=== PATIENT | male | born 1940 | race Caucasian/White ===

== ENCOUNTER 2016-11-17 09:59 | Inpatient (IN) | payer MEDICARE ==
[2016-11-17] MEDS ORDERED: Ondansetron HCl/PF 4 MG/2 ML Vial IVP PRN ×2 (10:00→16:46)
[2016-11-17] MEDS ORDERED: Ondansetron ODT 4 MG TAB SL PRN (10:00)
[2016-11-17 10:51] LABS: #Lymphocytes 0.9 thou/uL (1.20-3.40); #Monocytes 0.8 thou/uL (0.11-0.59); #Neutrophils 5.1 thou/uL (1.40-6.50); %Basophils 0.2 % (0.0-1.0); %Eosinophils 0.7 % (0.0-10.0); %Lymphocytes 12.9 % (21.0-51.0); %Monocytes 11.1 % (0.0-10.0); Hematocrit 36.3 % (42.0-52.0); Mean Platelet Volume 7.1 fL (7.4-10.4); Red Blood Cell (RBC) Count 3.49 mill/uL (4.70-6.10); White Blood Cell (WBC) Count 6.8 thou/uL (4.8-10.8)
[2016-11-17 11:05] LABS: ALT (SGPT) 20 U/L (8-55); AST (SGOT) 28 U/L (5-34); Alkaline Phosphatase 120 U/L (40-150); Anion Gap 15 mmol/L (10-20); BUN (Urea Nitrogen) 19 mg/dL (8.4-25.7); CK (CPK) 153 U/L (30-200); Calc. Creatinine Clearance 0 mL/min (70-130); Calcium 8.9 mg/dL (7.8-10.44); Carbon Dioxide 20 mmol/L (23-31); Chloride 94 mmol/L (98-107); Estimated GFR-MDRD 68; Globulin 3.3 g/dL (2.4-3.5); Magnesium 1.8 mg/dL (1.6-2.6); Phosphorus 3.5 mg/dL (2.3-4.7); Protein, Total 6.9 g/dL (5.8-8.1)
[2016-11-17 11:09] LABS: Troponin I 0.025 ng/mL (< 0.028)
[2016-11-17 11:45] VITALS: BMI 28.7
[2016-11-17] MEDS ORDERED: FLU VACC TS2017-18 (>65YR) 0.5 ML SYRINGE IM ONE (12:15)
[2016-11-17 14:15] LABS: Troponin I 0.039 ng/mL (< 0.028)
[2016-11-17] MEDS ORDERED: Nitroglycerin 0.4 MG TAB (25 Tab Bottle) PO PRN (16:45)
[2016-11-17] MEDS ORDERED: Milk Of Magnesia 30 ML UDCUP PO PRN (16:46)
[2016-11-17] MEDS ORDERED: Mag-Al 1200 mg/1200 mg/30 ML UDCUP PO PRN (16:46)
[2016-11-17] MEDS ORDERED: Calcium Carbonate 500 MG ChewTAB PO PRN (16:46)
[2016-11-17] MEDS ORDERED: Ondansetron ODT 4 MG TAB PO PRN (16:46)
[2016-11-17] MEDS ORDERED: Acetaminophen 325 MG TAB PO PRN (16:46)
[2016-11-17] MEDS ORDERED: Senokot 8.6 MG TAB PO PRN (16:46)
[2016-11-17] MEDS ORDERED: Bisacodyl 10 MG SUPP PR PRN (16:46)
[2016-11-17] MEDS ORDERED: Diabetic Tussin 200 MG/10 ML UDCUP PO PRN (16:57)
[2016-11-17] MEDS ORDERED: cloNIDine HCl 0.1 MG TAB PO PRN (16:59)
[2016-11-17] MEDS ORDERED: Labetalol HCl 100 MG/20 ML VIAL SLOW IVP PRN (16:59)
[2016-11-17 17:08] LABS: Troponin I 0.027 ng/mL (< 0.028)
--- NOTE | 2016-11-17 17:09 | HP ---
DATE OF ADMISSION: 11/17/2016 CHIEF COMPLAINT: Shortness of breath and chest discomfort. CODE STATUS: FULL CODE. SURROGATE DECISION-MAKER: Patient makes his own decisions with the help of his family. HISTORY OF PRESENT ILLNESS: Patient is a 76-year-old male with coronary artery disease, chronic javier stolic heart failure, severe aortic stenosis, hypertension, and hyperlipidemia, who presented to [facility] with the above complaints. The patient woke up at 4 a.m. today with sudden onset of chest discomfort which felt like tightness, more or less constant, without any aggravating or relieving factor. He also had shortness of breat h without any palpitations, nausea, vomiting, or diaphoresis. The pain was moderate in intensity wi thout any radiation. It was precordial in location. Due to worsening chest discomfort, EMS was jordan led. He denies any syncope or lightheadedness. No recent immobilization, travel reported. In the emergency room, his initial vital signs showed temperature 97.4, pulse rate of 78, respiratio n of 20, blood pressure of 122/80 with O2 saturation 98% on room air. His chest x-ray showed pulmon taylor vascular congestion. His BNP at [facility] was around 1800 with sodium of 127 and bilirubi n of 2.2 with alkaline phosphatase 134. He received 80 mg IV Lasix and was transferred to this [facility]. His initial EKG showed paced rhythm. PAST MEDICAL HISTORY: 1. Chronic diastolic heart failure. 2. Severe aortic stenosis with ongoing plans for TAVR. 3. Hypertension. 4. Hypothyroidism. 5. Coronary artery disease. 6. Blindness. 7. Anxiety. 8. Benign prostatic hypertrophy. 9. Status post pacemaker. 10. GERD. 11. Hyperlipidemia. 12. Irritable bowel syndrome. 13. History of prostate cancer. 14. History of renal artery occlusion. 15. Seasonal allergies. 16. History of MO. 17. Sick sinus syndrome. PAST SURGICAL HISTORY: 1. Coronary artery bypass grafting in 12/1999. 2. Prostatectomy in 2004. 3. Pacemaker placement in 2009. 4. Recent cardiac catheterization per family report. 5. Orthopedic Surgery. ALLERGIES: Patient is allergic to ASPIRIN, CAFFEINE, and CODEINE. CURRENT HOME MEDICATIONS: Patient does not remember any of his home medications. Family to get acc urate list of medications. SOCIAL HISTORY: Patient currently lives alone at home. He denies any history of smoking, alcohol o r drug use. FAMILY HISTORY: Negative for premature coronary artery disease. REVIEW OF SYSTEMS: The following complete review of systems was negative, unless otherwise mentione d in the HPI or below: Constitutional: Weight loss or gain, ability to conduct usual activities. Skin: Rash, itching. Eyes: Double vision, pain. ENT/Mouth: Nose bleeding, neck stiffness, pain, tenderness. Cardiovascular: Palpitations, dyspnea on exertion, orthopnea. Respiratory: Shortness of breath, wheezing, cough, hemoptysis, fever or night sweats. Gastrointestinal: Poor appetite, abdominal pain, heartburn, nausea, vomiting, constipation, or diar aakash. Genitourinary: Urgency, frequency, dysuria, nocturia. Musculoskeletal: Pain, swelling. Neurologic/Psychiatric: Anxiety, depression. Allergy/Immunologic: Skin rash, bleeding tendency. PHYSICAL EXAMINATION: VITAL SIGNS: As discussed above. GENERAL: A 76-year-old male in minimal respiratory distress. Able to complete short sentences. HEENT: Head is atraumatic, normocephalic. Sclerae are anicteric. Moist mucous membranes. No oral lesion. NECK: Supple, no carotid bruit. Neck veins somewhat distended. LUNGS: Show bibasilar crackles. No significant wheezing or rhonchi. Lungs were symmetrical. HEART: S1 and S2 present, 4/6 systolic ejection murmur over the aortic area. There was also 3/6 sy stolic murmur over the mitral area and left lateral sternal border. ABDOMEN: Soft, nontender, and bowel sounds present. Hepatojugular reflux was equivocal. EXTREMITIES: Trace edema in bilateral lower extremities. SKIN: Warm and dry. LYMPH NODES: No palpable lymph nodes in the neck. PERIPHERAL VASCULAR: Radial pulses palpable bilaterally. MUSCULOSKELETAL: No joint swelling or tenderness. NEUROLOGIC: Grossly nonfocal, moves all four extremities. PSYCHIATRIC: Alert, awake, oriented x3. LABORATORY DATA AND IMAGIN. Sodium is down to 125 with BUN 19, creatinine 1.05, bicarbonate 20, chloride of 94. 2. Serum osmolarity 264. 3. Troponin of 0.039. BNP 2090. 4. Hemoglobin 12.2 with hematocrit 36.3. 5. Albumin of 3.6. 6. EKG by my review as discussed above. Chest x-ray as discussed above. 7. Echocardiogram done in 08/2016 showed moderate to severe mitral regurgitation, severe aortic latisha nosis, moderate to severe tricuspid regurgitation. Ejection fraction was 50%-55%. IMPRESSION: 1. Acute on chronic diastolic heart failure exacerbation. 2. Abnormal liver function tests, probably secondary to passive hepatic congestion. 3. Hyponatremia, probably secondary to congestive heart failure. 4. Severe aortic stenosis. 5. Moderate to severe mitral regurgitation. 6. Moderate to severe tricuspid regurgitation. 7. Elevated troponins, probably secondary to demand ischemia. 8. Chronic anemia macrocytic. 9. Blindness. 10. Benign prostatic hypertrophy. 11. Hypertension. 12. Coronary artery disease, status post myocardial infarction and bypass. 13. Sick sinus syndrome, status post pacemaker. 14. Degenerative joint disease. 15. Irritable bowel syndrome. 16. Hypertension. 17. Gastroesophageal reflux disease. 18. Hyperlipidemia. PLAN: The patient will be monitored on the telemetry unit. We will hold diuretics for now due to b lood pressure on the lower side with a history of severe aortic stenosis. We will confirm other diane e medications and start accordingly. We will continue Plavix. Cardiology will be consulted. We wi ll consult cardiac rehabilitation. Telemetry monitoring. Plan of care was discussed with the patient and the family at the bedside. They stated understandin g. The patient will require at least 2-3 days for stabilization. LFTs will be repeated in the morning.
[2016-11-17] MEDS: Docusate 100 MG CAP PO SCH (20:46)
[2016-11-17] MEDS: Famotidine 20 MG TAB PO SCH (20:47)
[2016-11-17] MEDS: Heparin 5,000 UNITS/ML VIAL SC SCH (20:55)
[2016-11-17] MEDS ORDERED: Atorvastatin Calcium 20 MG TAB PO SCH (22:30)
[2016-11-17] MEDS ORDERED: traZODone HCl 150 MG TAB PO SCH (22:30)
[2016-11-18 06:37] LABS: ALT (SGPT) 18 U/L (8-55); AST (SGOT) 23 U/L (5-34); Alkaline Phosphatase 107 U/L (40-150); Anion Gap 12 mmol/L (10-20); BUN (Urea Nitrogen) 23 mg/dL (8.4-25.7); Calc. Creatinine Clearance 68 mL/min (70-130); Calcium 8.5 mg/dL (7.8-10.44); Carbon Dioxide 24 mmol/L (23-31); Chloride 95 mmol/L (98-107); Estimated GFR-MDRD 65; Globulin 2.7 g/dL (2.4-3.5); Magnesium 1.7 mg/dL (1.6-2.6); Phosphorus 3.5 mg/dL (2.3-4.7)
[2016-11-18] MEDS: Docusate 100 MG CAP PO SCH ×2 (10:52→21:59)
[2016-11-18] MEDS: Famotidine 20 MG TAB PO SCH ×2 (10:52→21:59)
[2016-11-18] MEDS: Clopidogrel Bisulfate 75 MG TAB PO SCH (10:53)
[2016-11-18] MEDS: Heparin 5,000 UNITS/ML VIAL SC SCH (10:53)
--- NOTE | 2016-11-18 19:35 | PDOC.PN ---
- Subjective Encounter Start Date: 11/18/16 Encounter Start Time: 09:45 Patient seen and examined. No new complaints. No overnight events. BP low per RN. Pt is asymtomatic. - Objective Resuscitation Status: Resuscitation Status FULL:Full Resuscitation MAR Reviewed: Yes Vital Signs & Weight: Vital Signs (12 hours) Temp Pulse Pulse Pulse Resp BP BP 11/18/16 16:40 98.7 F 72 16 11/18/16 12:39 98.2 F 69 20 11/18/16 11:00 72 73 95/60 100/69 11/18/16 08:30 98.5 F 72 18 11/18/16 08:15 98.5 F 72 18 BP Pulse Ox Pulse Ox Pulse Ox 11/18/16 16:40 88/50 L 98 11/18/16 12:39 94/61 97 11/18/16 11:00 95 100 11/18/16 08:30 94 L 11/18/16 08:15 81/52 L 94 L Weight Weight 193 lb I&O: 11/17/16 11/18/16 11/19/16 06:59 06:59 06:59 Intake Total 840 480 Output Total 2050 500 Balance -1210 -20 Result Diagrams: 11/17/16 10:36 11/18/16 05:39 EKG Reviewed by me: Yes (Tele SR) Phys Exam - Physical Examination Constitutional: NAD Respiratory: no wheezing, no rhonchi Scat rales at bases Cardiovascular: RRR, no rub Gastrointestinal: soft, positive bowel sounds Musculoskeletal: no edema Neurological: non-focal, moves all 4 limbs Dx/Plan - Plan IMPRESSION: 1. Acute on chronic diastolic heart failure exacerbation. 2. Abnormal liver function tests, probably secondary to passive hepatic congestion. 3. Hyponatremia, probably secondary to congestive heart failure. slowly improving 4. Severe aortic stenosis. 5. Moderate to severe mitral regurgitation. 6. Moderate to severe tricuspid regurgitation. 7. Elevated troponins, probably secondary to demand ischemia. 8. Chronic anemia macrocytic. 9. Blindness. 10. Benign prostatic hypertrophy. 11. Hypertension. 12. Coronary artery disease, status post myocardial infarction and bypass. 13. Sick sinus syndrome, status post pacemaker. 14. Degenerative joint disease. 15. Irritable bowel syndrome. 16. Hypertension. 17. Gastroesophageal reflux disease. 18. Hyperlipidemia. PLAN: * BLESSING Hernandezey in AM * Hold diuretics due to low BP * Await Cardio input * AM labs * Cont to monitor * Cont Cardiac Rehab * Pt is refusing Heparin Review of Systems - Review of Systems Constitutional: negative: Fever, Chills, Sweats, Weakness, Malaise, Other Cardiovascular: negative: Chest Pain, Palpitations, Orthopnea, Paroxysmal Noc. Dyspnea, Edema, Light Headedness, Other Gastrointestinal: negative: Nausea, Vomiting, Abdominal Pain, Diarrhea, Constipation, Melena, Hematochezia, Other - Medications/Allergies Allergies/Adverse Reactions: Allergies Allergy/AdvReac Type Severity Reaction Status Date / Time aspirin Allergy Verified 08/30/16 03:18 caffeine Allergy Verified 11/17/16 11:50 codeine Allergy Verified 08/30/16 03:18 Medications: Current Medications Acetaminophen (Tylenol) 650 mg PO Q4H PRN PRN Reason: Headache/Fever or Pain Al Hydroxide/Mg Hydroxide (Maalox) 30 ml PO Q6H PRN PRN Reason: Heartburn or Indigestion Atorvastatin Calcium (Lipitor) 20 mg PO [facility] Bisacodyl (Dulcolax) 10 mg OR Q24H PRN PRN Reason: Constipation Calcium Carbonate (Tums) 1,000 mg PO Q4H PRN PRN Reason: Heartburn or Indigestion Clonidine HCl (Catapres) 0.1 mg PO Q4H PRN PRN Reason: Systolic BP > 180 Clopidogrel Bisulfate (Plavix) 75 mg PO QAM [facility] Last Admin: 11/18/16 10:53 Dose: 75 mg Docusate Sodium (Colace) 100 mg PO BID [facility] Last Admin: 11/18/16 10:52 Dose: 100 mg Famotidine (Pepcid) 20 mg PO BID [facility] Last Admin: 11/18/16 10:52 Dose: 20 mg Guaifenesin (Robitussin Sf) 200 mg PO Q4H PRN PRN Reason: Cough Hydralazine HCl (Apresoline) 5 mg SLOW IVP Q4H PRN PRN Reason: SBP Greater Than 180 Labetalol HCl (Normodyne) 10 mg SLOW IVP Q4H PRN PRN Reason: Systolic BP > 180 Magnesium Hydroxide (Milk Of Magnesium) 30 ml PO DAILYPRN PRN PRN Reason: Constipation Nitroglycerin (Nitrostat) 0.4 mg PO Q5MIN PRN PRN Reason: Chest Pain Ondansetron HCl (Zofran Odt) 4 mg PO Q6H PRN PRN Reason: Nausea/Vomiting Ondansetron HCl (Zofran) 4 mg IVP Q6H PRN PRN Reason: Nausea/Vomiting Senna (Senokot) 2 tab PO HSPRN PRN PRN Reason: Constipation Trazodone HCl (Desyrel) 150 mg PO HS [facility]
[2016-11-18] MEDS: traZODone HCl 150 MG TAB PO SCH (21:59)
[2016-11-18] MEDS: Atorvastatin Calcium 20 MG TAB PO SCH (21:59)
--- NOTE | 2016-11-19 05:56 | CON ---
DATE OF CONSULTATION: 11/18/2016 CARDIOLOGY CONSULTATION REASON FOR CONSULTATION: Recurrent congestive heart failure, aortic stenosis, and mitral regurgitat ion. HISTORY OF PRESENT ILLNESS: Mr. Marquis is a 76-year-old man. Patient has severe aortic stenosis a nd severe mitral regurgitation. He has been given an appointment to see a physician in august Handyning possible transcutaneous treatment, this is not an operative candidate. He underwent recent cardiac catheterization and did not have problem with the blood flow through coronary arteries, but does have severe aortic stenosis and severe mitral regurgitations on echocardiogram. He has been ad mitted on this occasion with recurrent tightness across his chest. At this time, unfortunately, his blood pressure has been low and has not been able to give much in the way of diuretics, he is also hyponatremic. MEDICATIONS: Medications at home included: 1. Calcium carbonate. 2. Simvastatin. 3. Valsartan. 4. Bystolic. 5. Plavix. 6. Furosemide 20 mg a day. ALLERGIES: Allergic to ASPIRIN, CAFFEINE, and CODEINE. The patient does have atrial arrhythmias, but does not thought to be a candidate for anticoagulation . REVIEW OF SYSTEMS: Constitutional: No significant weight loss. Vision: No changes. He has chron ically impaired severe vision, essentially blind. Pulmonary: No cough. Cardiac: Positive for kalia rtness of breath. Gastrointestinal: No nausea, vomiting, or diarrhea. Skin: No rashes. PHYSICAL EXAMINATION: GENERAL: On examination, this is a chronically ill, delightful, elderly gentleman. VITAL SIGNS: Blood pressure is low at 88/50, pulse is 72, irregular. LUNGS: Clear. CARDIAC: There is a 3/6 holosystolic murmur at the apex and mitral regurgitation, 3/6 crescendo dec rescendo murmur from aortic stenosis at the right upper sternal border. No diastolic murmur. ABDOMEN: Soft, nontender. EXTREMITIES: Mild edema. PERTINENT LABORATORY DATA: Sodium is 127. BNP is 2090. ASSESSMENT: 1. Recurrent congestive heart failure. 2. Aortic stenosis, severe. 3. Mitral regurgitation, severe. 4. Atrial fibrillation with underlying paced rhythm, need to recheck the chart, we now have discuss ed left atrial exclusion of , and my recollection is that he declined those. I will need to re search that further in his medical records. PLAN: 1. We will have to hold the diuretics until blood pressure comes up. 2. He is off the valsartan. 3. He is off the Bystolic. 4. He is being fluid restricted. Will follow up with you and do a chest x-ray in the morning.
[2016-11-19 06:02] LABS: #Eosinphils 0.1 thou/uL (0.0-0.7); #Lymphocytes 1.2 thou/uL (1.20-3.40); #Monocytes 0.9 thou/uL (0.11-0.59); #Neutrophils 4.8 thou/uL (1.40-6.50); %Eosinophils 1.1 % (0.0-10.0); %Lymphocytes 16.7 % (21.0-51.0); %Monocytes 13.4 % (0.0-10.0); Hematocrit 33.8 % (42.0-52.0); Mean Platelet Volume 6.7 fL (7.4-10.4); Red Blood Cell (RBC) Count 3.24 mill/uL (4.70-6.10)
[2016-11-19 06:26] LABS: ALT (SGPT) 17 U/L (8-55); AST (SGOT) 23 U/L (5-34); Alkaline Phosphatase 113 U/L (40-150); Anion Gap 12 mmol/L (10-20); BUN (Urea Nitrogen) 23 mg/dL (8.4-25.7); Calc. Creatinine Clearance 75 mL/min (70-130); Calcium 8.6 mg/dL (7.8-10.44); Carbon Dioxide 24 mmol/L (23-31); Chloride 97 mmol/L (98-107); Estimated GFR-MDRD 72; Magnesium 1.9 mg/dL (1.6-2.6); Phosphorus 3.4 mg/dL (2.3-4.7); Protein, Total 6.3 g/dL (5.8-8.1)
--- NOTE | 2016-11-19 09:17 | RAD ---
CHEST 1 VIEW: HISTORY: CHF. Dyspnea. Followup. COMPARISON: . FINDINGS: Cardiac silhouette is magnified and enlarged. Pulmonary vasculature is upper limits of normal. Chr onic infiltrate at the left base is similar in appearance to the previous exam with a small amount o f left pleural fluid evident. Right pleural fluid is not visible on the current study. Postoperati ve changes in the mediastinum and single-lead left subclavian left cardiac electronic device are eva arent. Right shoulder prosthesis is partially visualized. IMPRESSION: Cardiomegaly. Chronic left basilar infiltrate and left pleural effusion. POS: [facility]
[2016-11-19] MEDS: Clopidogrel Bisulfate 75 MG TAB PO SCH (09:32)
[2016-11-19] MEDS: Docusate 100 MG CAP PO SCH ×2 (09:32→21:17)
[2016-11-19] MEDS: Famotidine 20 MG TAB PO SCH ×2 (09:32→21:17)
--- NOTE | 2016-11-19 09:44 | PRG ---
DATE OF SERVICE: 11/19/2016 SUBJECTIVE: Mr. Marquis is feeling better today, no chest pain or pressure. PHYSICAL EXAMINATION: VITAL SIGNS: His blood pressure is still low at 92/56, pulse 70, it is regular. LUNGS: Clear. CARDIAC: No murmurs as before. ABDOMEN: Soft, nontender. EXTREMITIES: There is reduced edema. PERTINENT LABORATORY DATA: Bilirubin 2. Sodium is better at 129. He has reduced drinking a lot of water intentionally at home. ASSESSMENT: 1. Congestive heart failure, diastolic related to aortic stenosis and mitral regurgitation. 2. Coronary artery disease, adequately vascularized. 3. Increased bilirubin, suspected hepatic congestion. 4. Hypotension. PLAN: 1. We will hold off on beta-blockers and angiotensin receptor blockers until the blood pressure imp roves. 2. Hopefully, if the blood pressure goes up, again given him some diuretics.
--- NOTE | 2016-11-19 18:36 | PDOC.PN ---
- Subjective Encounter Start Date: 11/19/16 Encounter Start Time: 11:00 Patient seen and examined. No new complaints. No overnight events - Objective Resuscitation Status: Resuscitation Status FULL:Full Resuscitation MAR Reviewed: Yes Vital Signs & Weight: Vital Signs (12 hours) Temp Pulse Pulse Pulse Resp BP BP 11/19/16 15:11 99.1 F 70 20 11/19/16 11:30 97.6 F 72 16 11/19/16 09:37 74 71 112/73 96/62 11/19/16 07:55 97.6 F 72 16 BP Pulse Ox Pulse Ox Pulse Ox 11/19/16 15:11 97/61 98 11/19/16 11:30 100/57 L 94 L 11/19/16 09:37 96 96 11/19/16 07:55 94 L Weight Weight 189 lb I&O: 11/18/16 11/19/16 11/20/16 06:59 06:59 06:59 Intake Total 840 640 Output Total 2050 1500 Balance -1210 -860 Result Diagrams: 11/19/16 05:51 11/19/16 05:51 EKG Reviewed by me: Yes (Tele paced) Phys Exam - Physical Examination Constitutional: NAD Respiratory: no wheezing, no rhonchi Scat rales at bases Cardiovascular: RRR, no rub Gastrointestinal: soft, non-tender, positive bowel sounds Musculoskeletal: no edema Neurological: non-focal, moves all 4 limbs Dx/Plan - Plan DVT proph w/SCDs IMPRESSION: 1. Acute on chronic diastolic heart failure exacerbation. Cardiology following 2. Abnormal liver function tests, probably secondary to passive hepatic congestion. 3. Hyponatremia, probably secondary to congestive heart failure. slowly improving 4. Severe aortic stenosis. TAVR planned 5. Moderate to severe mitral regurgitation. 6. Moderate to severe tricuspid regurgitation. 7. Elevated troponins, probably secondary to demand ischemia. 8. Chronic anemia macrocytic. 9. Blindness. 10. Benign prostatic hypertrophy. 11. Hypertension. 12. Coronary artery disease, status post myocardial infarction and bypass. 13. Sick sinus syndrome, status post pacemaker. 14. Degenerative joint disease. 15. Irritable bowel syndrome. 16. Hypertension. 17. Gastroesophageal reflux disease. 18. Hyperlipidemia. PLAN: * Diuretics on hold due to low BP * AM labs * Cont to monitor * Cont Cardiac Rehab * Pt is refusing Heparin * Resume selected home meds. * Melara dced today Review of Systems - Review of Systems Constitutional: negative: Fever, Chills, Sweats, Weakness, Malaise, Other Respiratory: negative: Cough, Dry, Shortness of Breath, Hemoptysis, SOB with Excertion, Pleuritic Pain, Sputum, Wheezing Cardiovascular: negative: Chest Pain, Palpitations, Orthopnea, Paroxysmal Noc. Dyspnea, Edema, Light Headedness, Other Gastrointestinal: negative: Nausea, Vomiting, Abdominal Pain, Diarrhea, Constipation, Melena, Hematochezia, Other - Medications/Allergies Allergies/Adverse Reactions: Allergies Allergy/AdvReac Type Severity Reaction Status Date / Time aspirin Allergy Verified 08/30/16 03:18 caffeine Allergy Verified 11/17/16 11:50 codeine Allergy Verified 08/30/16 03:18 Medications: Current Medications Acetaminophen (Tylenol) 650 mg PO Q4H PRN PRN Reason: Headache/Fever or Pain Al Hydroxide/Mg Hydroxide (Maalox) 30 ml PO Q6H PRN PRN Reason: Heartburn or Indigestion Atorvastatin Calcium (Lipitor) 20 mg PO HS [facility] Last Admin: 11/18/16 21:59 Dose: 20 mg Bisacodyl (Dulcolax) 10 mg NE Q24H PRN PRN Reason: Constipation Calcium Carbonate (Tums) 1,000 mg PO Q4H PRN PRN Reason: Heartburn or Indigestion Clonidine HCl (Catapres) 0.1 mg PO Q4H PRN PRN Reason: Systolic BP > 180 Clopidogrel Bisulfate (Plavix) 75 mg PO QAM [facility] Last Admin: 11/19/16 09:32 Dose: 75 mg Docusate Sodium (Colace) 100 mg PO BID [facility] Last Admin: 11/19/16 09:32 Dose: 100 mg Famotidine (Pepcid) 20 mg PO BID [facility] Last Admin: 11/19/16 09:32 Dose: 20 mg Guaifenesin (Robitussin Sf) 200 mg PO Q4H PRN PRN Reason: Cough Hydralazine HCl (Apresoline) 5 mg SLOW IVP Q4H PRN PRN Reason: SBP Greater Than 180 Labetalol HCl (Normodyne) 10 mg SLOW IVP Q4H PRN PRN Reason: Systolic BP > 180 Levothyroxine Sodium (Synthroid) 25 mcg PO 0600 [facility] Magnesium Hydroxide (Milk Of Magnesium) 30 ml PO DAILYPRN PRN PRN Reason: Constipation Nitroglycerin (Nitrostat) 0.4 mg PO Q5MIN PRN PRN Reason: Chest Pain Ondansetron HCl (Zofran Odt) 4 mg PO Q6H PRN PRN Reason: Nausea/Vomiting Ondansetron HCl (Zofran) 4 mg IVP Q6H PRN PRN Reason: Nausea/Vomiting Senna (Senokot) 2 tab PO HSPRN PRN PRN Reason: Constipation Sodium Chloride (Flush - Normal Saline) 10 ml IVF Q12HR [facility] Sodium Chloride (Flush - Normal Saline) 10 ml IVF PRN PRN PRN Reason: Saline Flush Timolol Maleate (Timoptic 0.25% [facility]) 1 drop L EYE BID [facility] Trazodone HCl (Desyrel) 150 mg PO HS [facility] Last Admin: 11/18/16 21:59 Dose: 150 mg
[2016-11-19] MEDS ORDERED: TIMOLOL L EYE SCH (21:00)
[2016-11-19] MEDS: traZODone HCl 150 MG TAB PO SCH (21:17)
[2016-11-19] MEDS: Atorvastatin Calcium 20 MG TAB PO SCH (21:17)
[2016-11-19] MEDS: Timolol 0.25% Ophth Soln 5 ml Bottle L EYE SCH (21:18)
[2016-11-20] MEDS: Levothyroxine Sodium 25 MCG TAB PO SCH (05:49)
[2016-11-20] MEDS: Docusate 100 MG CAP PO SCH ×2 (08:17→20:13)
[2016-11-20] MEDS: Famotidine 20 MG TAB PO SCH ×2 (08:17→20:13)
[2016-11-20] MEDS: Clopidogrel Bisulfate 75 MG TAB PO SCH (08:17)
[2016-11-20] MEDS: Timolol 0.25% Ophth Soln 5 ml Bottle L EYE SCH ×2 (08:19→20:20)
--- NOTE | 2016-11-20 09:47 | PRG ---
DATE OF SERVICE: 11/20/2016 Mr. Marquis remains mostly in bed. No chest pain or pressure. PHYSICAL EXAMINATION: VITAL SIGNS: Blood pressure is as high as it has been at 108/63, pulse 78, it is paced on the monit or. LUNGS: Clear. CARDIAC: Murmurs as before. ABDOMEN: Soft, nontender. EXTREMITIES: Mild edema. ASSESSMENT: 1. Congestive heart failure previously mostly diastolic. 2. Aortic stenosis. 3. Mitral regurgitation. 4. Previous pacemaker, single chamber. 5. Chronic atrial fibrillation. PLAN: 1. Repeat echocardiogram. 2. Start Lasix. 3. Hopefully, he will be a candidate for transcutaneous aortic valve replacement, aortic valve and possibly percutaneous therapy of the mitral valve for the mitral insufficiency. Prognosis is guarded.
[2016-11-20] MEDS ORDERED: Potassium Chloride 20 MEQ TAB PO SCH (12:00)
[2016-11-20] MEDS: Furosemide 20 MG/2 ML VIAL SLOW IVP SCH (14:01)
[2016-11-20] MEDS: traZODone HCl 150 MG TAB PO SCH (20:13)
[2016-11-20] MEDS: Atorvastatin Calcium 20 MG TAB PO SCH (20:13)
--- NOTE | 2016-11-20 22:21 | PDOC.PN ---
- Subjective Encounter Start Date: 11/20/16 Encounter Start Time: 10:45 Patient seen and examined. SOB +. No overnight events - Objective Resuscitation Status: Resuscitation Status FULL:Full Resuscitation MAR Reviewed: Yes Vital Signs & Weight: Vital Signs (12 hours) Temp Pulse Resp BP Pulse Ox 11/20/16 20:00 97.9 F 78 20 96 11/20/16 19:59 97.9 F 78 20 102/58 L 96 11/20/16 16:00 68 18 100/61 11/20/16 12:00 97.9 F 73 18 103/61 Weight Weight 190 lb 1.6 oz I&O: 11/19/16 11/20/16 11/21/16 06:59 06:59 06:59 Intake Total 640 360 720 Output Total 1500 520 490 Balance -860 -160 230 Result Diagrams: 11/19/16 05:51 11/21/16 05:25 EKG Reviewed by me: Yes (Tele paced) Phys Exam - Physical Examination Mild resp distress Scat rales/rhonchi - nader at bases Cardiovascular: RRR, no rub Gastrointestinal: soft, non-tender, positive bowel sounds Musculoskeletal: no edema Neurological: moves all 4 limbs Dx/Plan - Plan DVT proph w/SCDs IMPRESSION: 1. Acute on chronic diastolic heart failure exacerbation. Cardiology following 2. Abnormal liver function tests, probably secondary to passive hepatic congestion. 3. Hyponatremia, probably secondary to congestive heart failure. slowly improving 4. Severe aortic stenosis. TAVR planned 5. Moderate to severe mitral regurgitation. 6. Moderate to severe tricuspid regurgitation. 7. Elevated troponins, probably secondary to demand ischemia. 8. Chronic anemia macrocytic. 9. Blindness. 10. Benign prostatic hypertrophy. 11. Hypertension. 12. Coronary artery disease, status post myocardial infarction and bypass. 13. Sick sinus syndrome, status post pacemaker. 14. Degenerative joint disease. 15. Irritable bowel syndrome. 16. Hypertension. 17. Gastroesophageal reflux disease. 18. Hyperlipidemia. PLAN: * Diuretics started today * AM labs * Cont to monitor * Cont Cardiac Rehab * Pt is refusing SQ Heparin for DVT prophylaxis * Resume selected home meds. Review of Systems - Review of Systems Constitutional: negative: Fever, Chills, Sweats, Weakness, Malaise, Other Respiratory: Cough, Dry, Shortness of Breath, SOB with Excertion. negative: Hemoptysis, Pleuritic Pain, Sputum, Wheezing Cardiovascular: negative: Chest Pain, Palpitations, Orthopnea, Paroxysmal Noc. Dyspnea, Edema, Light Headedness, Other Gastrointestinal: negative: Nausea, Vomiting, Abdominal Pain, Diarrhea, Constipation, Melena, Hematochezia, Other - Medications/Allergies Allergies/Adverse Reactions: Allergies Allergy/AdvReac Type Severity Reaction Status Date / Time aspirin Allergy Verified 08/30/16 03:18 caffeine Allergy Verified 11/17/16 11:50 codeine Allergy Verified 08/30/16 03:18 Medications: Current Medications Acetaminophen (Tylenol) 650 mg PO Q4H PRN PRN Reason: Headache/Fever or Pain Al Hydroxide/Mg Hydroxide (Maalox) 30 ml PO Q6H PRN PRN Reason: Heartburn or Indigestion Atorvastatin Calcium (Lipitor) 20 mg PO HS [facility] Last Admin: 11/20/16 20:13 Dose: 20 mg Bisacodyl (Dulcolax) 10 mg ID Q24H PRN PRN Reason: Constipation Calcium Carbonate (Tums) 1,000 mg PO Q4H PRN PRN Reason: Heartburn or Indigestion Clonidine HCl (Catapres) 0.1 mg PO Q4H PRN PRN Reason: Systolic BP > 180 Clopidogrel Bisulfate (Plavix) 75 mg PO QAM [facility] Last Admin: 11/20/16 08:17 Dose: 75 mg Docusate Sodium (Colace) 100 mg PO BID [facility] Last Admin: 11/20/16 20:13 Dose: 100 mg Famotidine (Pepcid) 20 mg PO BID [facility] Last Admin: 11/20/16 20:13 Dose: 20 mg Furosemide (Lasix) 20 mg SLOW IVP 0600,1400 [facility] Last Admin: 11/20/16 14:01 Dose: 20 mg Guaifenesin (Robitussin Sf) 200 mg PO Q4H PRN PRN Reason: Cough Hydralazine HCl (Apresoline) 5 mg SLOW IVP Q4H PRN PRN Reason: SBP Greater Than 180 Labetalol HCl (Normodyne) 10 mg SLOW IVP Q4H PRN PRN Reason: Systolic BP > 180 Levothyroxine Sodium (Synthroid) 25 mcg PO 0600 [facility] Last Admin: 11/20/16 05:49 Dose: 25 mcg Magnesium Hydroxide (Milk Of Magnesium) 30 ml PO DAILYPRN PRN PRN Reason: Constipation Nitroglycerin (Nitrostat) 0.4 mg PO Q5MIN PRN PRN Reason: Chest Pain Ondansetron HCl (Zofran Odt) 4 mg PO Q6H PRN PRN Reason: Nausea/Vomiting Ondansetron HCl (Zofran) 4 mg IVP Q6H PRN PRN Reason: Nausea/Vomiting Potassium Chloride (K-Dur) 20 meq PO 1200 [facility] Last Admin: 11/20/16 12:16 Dose: 20 meq Senna (Senokot) 2 tab PO HSPRN PRN PRN Reason: Constipation Sodium Chloride (Flush - Normal Saline) 10 ml IVF Q12HR [facility] Last Admin: 11/20/16 20:14 Dose: 10 ml Sodium Chloride (Flush - Normal Saline) 10 ml IVF PRN PRN PRN Reason: Saline Flush Timolol Maleate (Timoptic 0.25% Oph Soln) 1 drop L EYE BID [facility] Last Admin: 11/20/16 20:20 Dose: 1 drop Trazodone HCl (Desyrel) 150 mg PO HS [facility] Last Admin: 11/20/16 20:13 Dose: 150 mg
[2016-11-21] MEDS: Furosemide 20 MG/2 ML VIAL SLOW IVP SCH ×2 (05:26→14:15)
[2016-11-21] MEDS: Levothyroxine Sodium 25 MCG TAB PO SCH (05:26)
[2016-11-21 05:55] LABS: Anion Gap 10 mmol/L (10-20); BUN (Urea Nitrogen) 22 mg/dL (8.4-25.7); Calc. Creatinine Clearance 84 mL/min (70-130); Calcium 8.7 mg/dL (7.8-10.44); Carbon Dioxide 27 mmol/L (23-31); Chloride 98 mmol/L (98-107); Estimated GFR-MDRD 83
[2016-11-21] MEDS: Famotidine 20 MG TAB PO SCH ×2 (08:31→20:34)
[2016-11-21] MEDS: Docusate 100 MG CAP PO SCH ×2 (08:31→20:34)
[2016-11-21] MEDS: Clopidogrel Bisulfate 75 MG TAB PO SCH (08:31)
[2016-11-21] MEDS: Timolol 0.25% Ophth Soln 5 ml Bottle L EYE SCH ×2 (08:32→20:35)
--- NOTE | 2016-11-21 11:51 | PRG ---
DATE OF SERVICE: 11/21/2016 HISTORY: Mr. Marquis is breathing better today, feels better. He is having no chest pain, no shortness of breath. PHYSICAL EXAMINATION: VITAL SIGNS: Blood pressure is better 106/64, pulse 72. LUNGS: Clear. CARDIAC: Murmurs as before. ABDOMEN: Soft, nontender. Reviewing the echocardiogram. His ejection fraction is within normal limits, but he has severe aort ic stenosis and moderate to severe mitral regurgitation. PERTINENT LABORATORY DATA: Sodium is up to 131. ASSESSMENT: 1. Congestive heart failure related to valvular heart disease, improving, but he has severe aortic stenosis and moderate to severe mitral regurgitation. 2. Chronic atrial fibrillation. The patient previously had GI bleeding when on Coumadin. We have sent him to [facility] in the past to see if he would be interested in a Watchman or other left atrial occlusion devices, but he had declined that in the past. 3. Coronary artery disease with previous bypass surgery. He is adequately vascularized. Recent ca theterization documents that. 4. Hyponatremia is improving. He was just intentionally drinking a lot of water at home. PLAN: 1. He will go home on furosemide 20 mg twice a day orally. 2. Potassium 10 mEq twice a day. 3. He will be taken off of the valsartan. 4. He will be taken off of Bystolic. 5. He is on Plavix. He is not on aspirin. The patient will be asked to follow up with Dr. Gasca in [place] to see if he is a candidate for p ercutaneous valves. Of note, he does have a very tortuous right iliac, did not image the left iliac at the time of catheterization.
--- NOTE | 2016-11-21 18:34 | PDOC.PN ---
- Subjective Encounter Start Date: 11/21/16 Encounter Start Time: 11:00 Patient seen and examined. No new complaints. No overnight events - Objective Resuscitation Status: Resuscitation Status FULL:Full Resuscitation MAR Reviewed: Yes Vital Signs & Weight: Vital Signs (12 hours) Temp Pulse Pulse Pulse Resp BP BP 11/21/16 16:07 97.7 F 71 16 11/21/16 11:46 97.7 F 69 16 11/21/16 09:13 83 72 116/55 L 88/56 L 11/21/16 08:30 98.3 F 73 19 BP Pulse Ox Pulse Ox Pulse Ox 11/21/16 16:07 107/65 96 11/21/16 11:46 104/61 97 11/21/16 09:13 98 97 11/21/16 08:30 106/64 96 Weight Weight 189 lb 3.2 oz I&O: 11/20/16 11/21/16 11/22/16 06:59 06:59 06:59 Intake Total 360 972 Output Total 520 840 Balance -160 132 Result Diagrams: 11/19/16 05:51 11/21/16 05:25 EKG Reviewed by me: Yes (Tele paced) Phys Exam - Physical Examination Constitutional: NAD Respiratory: no wheezing Bibasilar rales with scat rhonchi Cardiovascular: RRR, no rub Gastrointestinal: soft, non-tender, positive bowel sounds Musculoskeletal: no edema Neurological: moves all 4 limbs Psychiatric: A&O x 3 Dx/Plan - Plan IMPRESSION: 1. Acute on chronic diastolic heart failure exacerbation. Cardiology following. 2. Abnormal liver function tests, probably secondary to passive hepatic congestion. 3. Hyponatremia, probably secondary to congestive heart failure. slowly improving 4. Severe aortic stenosis. TAVR planned 5. Moderate to severe mitral regurgitation. 6. Moderate to severe tricuspid regurgitation. 7. Elevated troponins, probably secondary to demand ischemia. 8. Chronic anemia macrocytic. 9. Blindness. 10. Benign prostatic hypertrophy. 11. Hypertension. 12. Coronary artery disease, status post myocardial infarction and bypass. 13. Sick sinus syndrome, status post pacemaker. 14. Degenerative joint disease. 15. Irritable bowel syndrome. 16. Hypertension. 17. Gastroesophageal reflux disease. 18. Hyperlipidemia. PLAN: * Await Bed at [facility] for TAVR * Cont Diuretics * AM labs * Cont to monitor * Cont Cardiac Rehab * Pt is refusing SQ Heparin for DVT prophylaxis * Cont current meds as below Review of Systems - Review of Systems Constitutional: negative: Fever, Chills, Sweats, Weakness, Malaise, Other Respiratory: SOB with Excertion. negative: Cough, Dry, Shortness of Breath, Hemoptysis, Pleuritic Pain, Sputum, Wheezing Cardiovascular: negative: Chest Pain, Palpitations, Orthopnea, Paroxysmal Noc. Dyspnea, Edema, Light Headedness, Other - Medications/Allergies Allergies/Adverse Reactions: Allergies Allergy/AdvReac Type Severity Reaction Status Date / Time aspirin Allergy Verified 08/30/16 03:18 caffeine Allergy Verified 11/17/16 11:50 codeine Allergy Verified 08/30/16 03:18 Medications: Current Medications Acetaminophen (Tylenol) 650 mg PO Q4H PRN PRN Reason: Headache/Fever or Pain Al Hydroxide/Mg Hydroxide (Maalox) 30 ml PO Q6H PRN PRN Reason: Heartburn or Indigestion Atorvastatin Calcium (Lipitor) 20 mg PO HS [facility] Last Admin: 11/20/16 20:13 Dose: 20 mg Bisacodyl (Dulcolax) 10 mg ID Q24H PRN PRN Reason: Constipation Calcium Carbonate (Tums) 1,000 mg PO Q4H PRN PRN Reason: Heartburn or Indigestion Clonidine HCl (Catapres) 0.1 mg PO Q4H PRN PRN Reason: Systolic BP > 180 Clopidogrel Bisulfate (Plavix) 75 mg PO QAM [facility] Last Admin: 11/21/16 08:31 Dose: 75 mg Docusate Sodium (Colace) 100 mg PO BID [facility] Last Admin: 11/21/16 08:31 Dose: 100 mg Famotidine (Pepcid) 20 mg PO BID [facility] Last Admin: 11/21/16 08:31 Dose: 20 mg Furosemide (Lasix) 20 mg SLOW IVP 0600,1400 [facility] Last Admin: 11/21/16 14:15 Dose: 20 mg Guaifenesin (Robitussin Sf) 200 mg PO Q4H PRN PRN Reason: Cough Hydralazine HCl (Apresoline) 5 mg SLOW IVP Q4H PRN PRN Reason: SBP Greater Than 180 Labetalol HCl (Normodyne) 10 mg SLOW IVP Q4H PRN PRN Reason: Systolic BP > 180 Levothyroxine Sodium (Synthroid) 25 mcg PO 0600 [facility] Last Admin: 11/21/16 05:26 Dose: 25 mcg Magnesium Hydroxide (Milk Of Magnesium) 30 ml PO DAILYPRN PRN PRN Reason: Constipation Nitroglycerin (Nitrostat) 0.4 mg PO Q5MIN PRN PRN Reason: Chest Pain Ondansetron HCl (Zofran Odt) 4 mg PO Q6H PRN PRN Reason: Nausea/Vomiting Ondansetron HCl (Zofran) 4 mg IVP Q6H PRN PRN Reason: Nausea/Vomiting Potassium Chloride (Klor-Con 10) 10 meq PO BID[facility] Senna (Senokot) 2 tab PO HSPRN PRN PRN Reason: Constipation Sodium Chloride (Flush - Normal Saline) 10 ml IVF Q12HR [facility] Last Admin: 11/21/16 08:32 Dose: 10 ml Sodium Chloride (Flush - Normal Saline) 10 ml IVF PRN PRN PRN Reason: Saline Flush Timolol Maleate (Timoptic 0.25% [facility]) 1 drop L EYE BID [facility] Last Admin: 11/21/16 08:32 Dose: 1 drop Trazodone HCl (Desyrel) 150 mg PO HS [facility] Last Admin: 11/20/16 20:13 Dose: 150 mg
[2016-11-21] MEDS: traZODone HCl 150 MG TAB PO SCH (20:34)
[2016-11-21] MEDS: Atorvastatin Calcium 20 MG TAB PO SCH (20:34)
[2016-11-22] MEDS: Furosemide 20 MG/2 ML VIAL SLOW IVP SCH (06:22)
[2016-11-22] MEDS: Levothyroxine Sodium 25 MCG TAB PO SCH (06:30)
[2016-11-22 06:51] LABS: ALT (SGPT) 23 U/L (8-55); AST (SGOT) 37 U/L (5-34); Alkaline Phosphatase 119 U/L (40-150); Anion Gap 12 mmol/L (10-20); BUN (Urea Nitrogen) 22 mg/dL (8.4-25.7); Bilirubin, Total 1.8 mg/dL (0.2-1.2); Calc. Creatinine Clearance 85 mL/min (70-130); Calcium 8.4 mg/dL (7.8-10.44); Carbon Dioxide 26 mmol/L (23-31); Chloride 98 mmol/L (98-107); Estimated GFR-MDRD 84; Globulin 3.5 g/dL (2.4-3.5); Protein, Total 6.6 g/dL (5.8-8.1)
[2016-11-22] MEDS ORDERED: Potassium Chloride 10 MEQ TAB PO SCH (09:00)
[2016-11-22] MEDS: Clopidogrel Bisulfate 75 MG TAB PO SCH (09:02)
[2016-11-22] MEDS: Docusate 100 MG CAP PO SCH (09:02)
[2016-11-22] MEDS: Famotidine 20 MG TAB PO SCH (09:02)
[2016-11-22 12:05] VITALS: BP 101/62; TEMP 98.1
[2016-11-22] MEDS: Timolol 0.25% Ophth Soln 5 ml Bottle L EYE SCH (12:38)
--- NOTE | 2016-11-22 12:50 | PRG ---
DATE OF SERVICE: 11/22/2016 SUBJECTIVE: Mr. Marquis is resting comfortably, no complaints. PHYSICAL EXAMINATION: VITAL SIGNS: Blood pressure 104/62, pulse 70 regular. LUNGS: Clear. CARDIAC: Normal S1 and S2, without murmurs as before. ABDOMEN: Soft, nontender. EXTREMITIES: There is no edema. ASSESSMENT: 1. Severe aortic stenosis. 2. Moderate to severe mitral regurgitation. 3. Chronic atrial fibrillation. 4. He did have an episode of nonsustained ventricular tachycardia 7 beats. 5. Previous pacemaker, single chamber. 6. History of gastrointestinal bleeding, could not be anticoagulated in the past. Patient declined left atrial appendage occlusion device. PLAN: Waiting transfer to [facility]. The patient has had now several episodes of hospitaliz ation for congestive heart failure with aortic stenosis, currently clinically stable. His serum sod ium is stable at 131. Liver tests are slightly increased, probably related to hepatic congestion.
[2016-11-22] MEDS ORDERED: Furosemide 20 MG TAB PO SCH (14:00)
--- NOTE | 2016-11-22 14:50 | DIS ---
DATE OF ADMISSION: 11/17/2016 DATE OF DISCHARGE: 11/22/2016 DISCHARGE DISPOSITION: To [facility] in [place] for TAVR. ALLERGIES: Patient is allergic to CAFFEINE, ASPIRIN and CODEINE. DISCHARGE MEDICATIONS: 1. Plavix 75 mg daily. 2. Lasix 20 mg twice a day. 3. Potassium 10 mEq twice a day. 4. Protonix 40 mg daily. 5. Zocor 40 mg daily. 6. Timolol 1 drop in each eye twice a day. 7. Clonidine as needed. 8. Trazodone 150 mg at bedtime. 9. Vitamin D3 1000 units daily. 10. Cetirizine 10 mg daily as needed. 11. Calcium carbonate 600 mg b.i.d. 12. Hyoscyamine 0.375 mg q.12 hours as needed. 13. Levothyroxine 25 mcg daily. 14. Protonix 40 mg daily. BRIEF HOSPITAL COURSE: Patient is a 76-year-old male with coronary artery disease, chronic diastoli c heart failure, severe aortic stenosis, hypertension, and hyperlipidemia, who presented to [facility] with shortness of breath and chest discomfort. Please refer to the history and phys ical for further details. The patient was admitted to the hospital with the diagnosis of acute on chronic diastolic heart fail ure, probably precipitated by severe aortic stenosis and other valvular abnormalities. His blood pr essure on admission was in the low 100s. For this reason, he was unable to receive any diuretics gi shawanda his history of severe aortic stenosis. Patient was evaluated by Cardiology, Dr. Mast. One to two days later, he was started on Lasix with some improvement. The patient is being transferred to [facility] for TAVR. Dr. Mast discussed with Dr. Ramos at [facility]. He has bee n cleared by Cardiology for discharge. FINAL DIAGNOSES: 1. Acute on chronic diastolic heart failure. 2. Severe aortic stenosis. 3. Abnormal liver function tests secondary to passive hepatic congestion. 4. Hyponatremia with sodium of 125 on admission and 131 at discharge. 5. Severe aortic stenosis. 6. Moderate to severe mitral regurgitation. 7. Moderate to severe tricuspid regurgitation. 8. Elevated troponins, probably secondary to demand ischemia. 9. Chronic anemia. 10. Blindness. 11. Benign prostatic hypertrophy. 12. Hypertension. 13. Coronary artery disease, status post myocardial infarction and bypass in the past. 14. Sick sinus syndrome, status post pacemaker. 15. Degenerative joint disease. 16. Irritable bowel syndrome. 17. Hypertension. 18. Gastroesophageal reflux disease. 19. Hyperlipidemia. 20. Chronic kidney disease stage 2. 21. Mild protein calorie malnutrition. 22. ASPIRIN and CODEINE allergy. 23. Macrocytosis with normal vitamin B12 and folic acid. The patient was seen and examined on the day of discharge and denies any new complaints. Plan of care was discussed with the patient and he stated understanding. Total time coordinating the discharge of this patient was 35 minutes.
== END 2016-11-22 14:16 | disposition short-term general hospital (02) | DRG 291 ==
LOC: ERS 09:59 → 2NO 11:25
PROVIDERS: ADMIT Internal Medicine; ATTEND Internal Medicine
DX: I13.0 Hypertensive heart and chronic kidney disease with heart failure and stage 1 through stage 4 chronic kidney disease, or unspecified chronic kidney disease (principal); I50.33 Acute on chronic diastolic (congestive) heart failure; I95.9 Hypotension, unspecified; I24.8 Other forms of acute ischemic heart disease; I48.2 Chronic atrial fibrillation; D64.9 Anemia, unspecified; E44.1 Mild protein-calorie malnutrition; D75.89 Other specified diseases of blood and blood-forming organs; E87.1 Hypo-osmolality and hyponatremia; I08.3 Combined rheumatic disorders of mitral, aortic and tricuspid valves; I25.10 Atherosclerotic heart disease of native coronary artery without angina pectoris; E78.5 Hyperlipidemia, unspecified; E03.9 Hypothyroidism, unspecified; F41.9 Anxiety disorder, unspecified; N40.0 Benign prostatic hyperplasia without lower urinary tract symptoms; Z95.0 Presence of cardiac pacemaker; K21.9 Gastro-esophageal reflux disease without esophagitis; K58.9 Irritable bowel syndrome, unspecified; Z85.46 Personal history of malignant neoplasm of prostate; I25.2 Old myocardial infarction; Z90.79 Acquired absence of other genital organ(s); Z88.6 Allergy status to analgesic agent; Z88.5 Allergy status to narcotic agent; Z91.018 Allergy to other foods; H54.7 Unspecified visual loss; M19.90 Unspecified osteoarthritis, unspecified site; Z79.01 Long term (current) use of anticoagulants; N18.2 Chronic kidney disease, stage 2 (mild); Z68.28 Body mass index [BMI] 28.0-28.9, adult; Z95.1 Presence of aortocoronary bypass graft
CPT/HCPCS: 36415; 71010; 80048; 80053; 82533; 82550; 82553; 83735; 83880; 83930; 84100; 84484; 85025; 93306; 93798; 94760; 99285; A4216; J1644; J1940

== ENCOUNTER 2016-12-27 13:59 | Observation (INO) | payer MEDICARE ==
--- NOTE | 2016-12-27 14:59 | CT ---
CT BRAIN WITHOUT CONTRAST: Date: 12/27/16 HISTORY: Slurred speech, right arm drift, difficulty speaking. FINDINGS: Comparison made with exam of 10/03/12. Changes of cortical atrophy and chronic small vessel ischemic disease are again noted, as well as sm all lacunar infarctions in the right basal ganglia. No evidence of acute infarct, hemorrhage, midlin e shift, or abnormal extra-axial fluid collections are seen. The ventricular size is normal and the basilar cisterns are patent. The bony calvarium is intact. There is mild mucosal disease in the left sphenoid sinus. IMPRESSION: No CT evidence of acute intracranial process. POS: OFF
[2016-12-27 15:05] LABS: Hematocrit 33.7 % (42.0-52.0); Mean Platelet Volume 7.2 fL (7.4-10.4)
[2016-12-27 15:18] LABS: PTT 39.7 SEC (22.9-36.1)
[2016-12-27 15:27] LABS: ALT (SGPT) 12 U/L (8-55); AST (SGOT) 18 U/L (5-34); Alkaline Phosphatase 146 U/L (40-150); Anion Gap 16 mmol/L (10-20); BUN (Urea Nitrogen) 17 mg/dL (8.4-25.7); Bilirubin, Total 1.2 mg/dL (0.2-1.2); CK (CPK) 54 U/L (30-200); Calc. Creatinine Clearance 0 mL/min (70-130); Calcium 8.8 mg/dL (7.8-10.44); Carbon Dioxide 23 mmol/L (23-31); Chloride 107 mmol/L (98-107); Estimated GFR-MDRD 89; Globulin 3.6 g/dL (2.4-3.5)
[2016-12-27 15:31] LABS: Troponin I 0.054 ng/mL (< 0.028)
[2016-12-27 15:39] LABS: #Eosinphils 0.3 thou/uL (0.0-0.7); #Lymphocytes 1.2 thou/uL (1.20-3.40); #Monocytes 0.6 thou/uL (0.11-0.59); #Neutrophils 4.9 thou/uL (1.40-6.50); %Basophils 0.4 % (0.0-1.0); %Eosinophils 4.4 % (0.0-10.0); %Lymphocytes 17.1 % (21.0-51.0); %Monocytes 8.4 % (0.0-10.0); Anisocytosis SLIGHT = 6-15 cells (100X) (0-5/hpf); Macrocytosis SLIGHT = 6-15 cells (100X) (0-5/hpf)
[2016-12-27] MEDS ORDERED: Ondansetron HCl/PF 4 MG/2 ML Vial IVP PRN (17:39)
[2016-12-27] MEDS ORDERED: Ondansetron ODT 4 MG TAB SL PRN (17:39)
[2016-12-27 18:14] VITALS: BMI 24.6
[2016-12-27 18:28] LABS: Troponin I 0.055 ng/mL (< 0.028)
[2016-12-27] MEDS: Famotidine 20 MG TAB PO SCH (20:49)
--- NOTE | 2016-12-27 22:57 | HP ---
CHIEF COMPLAINT: Right arm weakness. HISTORY OF PRESENT ILLNESS: Right arm weakness, which started approximately noon and it resolved ap proximately at 13:20 today, which was associated with some slurred speech and a slow response accord ing to his son who is in the room during my visit. He had this kind of problem before x1. He recen tly went to [place] to have his aortic valve replacement. This was done 3 weeks ago and he was doin g quite well until today. He stayed in [facility] when it happened and he was taken by EMS [facility] [place]. PAST MEDICAL HISTORY: 1. Positive for chronic diastolic heart failure. 2. Severe aortic stenosis post transcatheter aortic valve replacement recently done in [place]. 3. Hypertension. 4. Hypothyroidism. 5. Coronary artery disease. 6. Blindness. 7. Anxiety. 8. Benign prostatic hypertrophy. 9. Status post pacemaker placement. 10. Gastroesophageal reflux disease. 11. Hyperlipidemia. 12. Irritable bowel syndrome. 13. History of prostate cancer. 14. History of renal artery stenosis. 15. History of myocardial infarction. 16. History of sick sinus syndrome. PAST SURGICAL HISTORY: 1. Coronary artery bypass graft surgery. 2. Prostatectomy. 3. Pacemaker placement. 4. Right shoulder reconstruction. SOCIAL HISTORY: He denies any alcohol use, cigarette smoking, tobacco use or illicit drug use. MEDICATIONS: Please refer to the current list. ALLERGIES: ASPIRIN and CODEINE. FAMILY HISTORY: Father had AZ in his 80s and mother was healthy and she passed. She was 96. REVIEW OF SYSTEMS: All 14 systems were reviewed and findings were negative except for those which a re mentioned in HPI. PHYSICAL EXAMINATION: VITAL SIGNS: His blood pressure is 150/82, pulse is 79, respiratory rate is 18 and temperature is 9 8.5. HEENT: He is legally blind. His pupils are responding to light properly and his sclerae is nonicte viki. Oral mucosa is moist. NECK: Supple. No lymphadenopathy. Thyroid is not palpable. LUNGS: Clear. HEART: S1 and S2 normal. No S3, no S4. There is a systolic murmur, mostly audible at the right up per and right sternal border. ABDOMEN: Soft, nontender and nondistended. Bowel sounds are present. No organomegaly. EXTREMITIES: 1+ peripheral edema similar bilaterally. He has somewhat diminished pulses on both ti bialis posterior and dorsalis pedis arteries, similar bilaterally. NEUROLOGIC: He is alert and oriented x4. There are no any sensory or motor deficits present at the time of my evaluation. Cerebellar function is within normal limits. LABORATORY AND X-RAY FINDINGS: White count of 7.0, hemoglobin 11.0, hematocrit 33.7, MCV 109 and ne utrophils 69.8. Slight anisocytosis and slight microcytosis. PT of 18.0 and INR 1.5. Normal chemi stry except for a troponin, which is 0.054 and the globulin is 3.6. His brain CT was done and it di d not show any acute abnormalities. IMPRESSION: 1. Transient ischemic attack resolved by the time the patient got to the emergency room. 2. Microcytic anemia. 3. History of congestive heart failure, diastolic in nature and AZ. 4. History of severe aortic stenosis and status post transcatheter aortic valve replacement. 5. Hypertension. 6. Hypothyroidism. 7. Coronary artery disease, chronic, stable. 8. Blindness. 9. Benign prostatic hypertrophy. 10. Presence of pacemaker. 11. Irritable bowel syndrome. 12. Hyperlipidemia. 13. History of prostate cancer. 14. History of renal artery occlusion. 15. Seasonal allergies. 16. History of sick sinus syndrome. PLAN: Admission for observation. Condition is fair. Activity is bed rest and bathroom privileges with assistance. Apparently, the patient is able to ambulate with some assistance. IV Hep-Lock. Tea alanis is on Eliquis at home and this happened when he was taking Eliquis daily twice a day, so I conside r this as a failure. We are going to obtain a Neurologic consultation with Dr. Art to establish new regimen to prevent further a progression and possible stroke in the future. He will continue o n his current home meds at this point. We will keep him on deep venous thrombosis prophylaxis with sequential compression devices and peptic ulcer prophylaxis with Pepcid 20 mg twice a day and we ella l obtain carotid Doppler. He had echocardiogram done just recently.
[2016-12-28 04:58] LABS: #Eosinphils 0.3 thou/uL (0.0-0.7); #Lymphocytes 1.7 thou/uL (1.20-3.40); #Monocytes 0.8 thou/uL (0.11-0.59); %Basophils 0.2 % (0.0-1.0); %Eosinophils 4.3 % (0.0-10.0); %Lymphocytes 21.6 % (21.0-51.0); Hematocrit 35.2 % (42.0-52.0); Red Blood Cell (RBC) Count 3.23 mill/uL (4.70-6.10); White Blood Cell (WBC) Count 7.8 thou/uL (4.8-10.8)
[2016-12-28 05:14] LABS: Anion Gap 15 mmol/L (10-20); BUN (Urea Nitrogen) 16 mg/dL (8.4-25.7); Calc. Creatinine Clearance 86 mL/min (70-130); Calcium 9.1 mg/dL (7.8-10.44); Carbon Dioxide 23 mmol/L (23-31); Chloride 108 mmol/L (98-107); Estimated GFR-MDRD 89
[2016-12-28] MEDS: Famotidine 20 MG TAB PO SCH (08:30)
--- NOTE | 2016-12-28 09:30 | ULT ---
BILATERAL CAROTID DUPLEX ULTRASOUND INCLUDING COLOR AND SPECTRAL DOPPLER IMAGING: HISTORY: A 76-year-old male with TIA. COMPARISON: 12/27/02. FINDINGS: Minimal visual plaque in both proximal ICAs. PSV right ICA 83 cm/s, EDV 36 cm/s, ICA/CCA ratio 0.9. PSV left ICA 34 cm/s, EDV 7 cm/s, ICA/CCA ratio 0.5. Vertebral flow is antegrade. IMPRESSION: No hemodynamically significant stenosis. Minimal visualized plaque. Evidence for carotid artery at herosclerotic disease. POS: JULIA
[2016-12-28] MEDS ORDERED: Apixaban 5 MG TAB PO SCH ×2 (11:45→21:00)
[2016-12-28 11:55] VITALS: BP 162/95; TEMP 98.5
--- NOTE | 2016-12-28 21:02 | DIS ---
DATE OF ADMISSION: 12/27/2016 DATE OF DISCHARGE: 12/28/2016 DIAGNOSES AT THE TIME OF DISCHARGE: 1. Transient ischemic attack, resolved. 2. Microcytic anemia. 3. History of congestive heart failure, diastolic in nature. 4. History of myocardial infarction. 5. History of severe aortic stenosis, status post transcatheter aortic valve replacement. 6. Hypertension. 7. Hypothyroidism. 8. Coronary artery disease, chronic, stable. 9. Blindness. 10. Benign prostatic hypertrophy. 11. Presence of pacemaker. 12. Irritable bowel syndrome. 13. Hyperlipidemia. 14. History of prostate cancer. 15. History of renal artery occlusion. 16. Seasonal allergies. 17. History of sick sinus syndrome. HOSPITAL COURSE: The patient is a 76-year-old male who was brought from [facility] he resides for right arm weakness, which resolved in approximately 1 hour time, but he was sent t o the emergency room for further evaluation. He recently had aortic valve replacements CRISTIN i tejinder Handy 3 weeks ago and the patient was evaluated in the emergency room. His white count was 7.0, hemoglobin 11.0, hematocrit 33.7, MCV 109 and neutrophils 69.8. His PT was 18. INR 1.5. Troponin was 0.054, globulin 3.6. CT of the brain did not show any acute abnormalities. He got admitted to the hospital for observation and carotid ultrasound was done with Doppler, which showed no hemodyna mically significant stenosis, minimal visualized plaque and evidence for carotid artery atherosclero tic disease. He is doing well. His blood pressure is 162/95. His pulse is 76. His temperature is 98.5. Respiratory rate is 18 and O2 saturation is 95% on room air. DISCHARGE DISPOSITION: He is discharged back to [facility] where he resides. DISCHARGE DIET: His diet is low salt at the time of discharge. DISCHARGE ACTIVITIES: Limited per his legal blindness, so he needs some assistance for that. HOME MEDICATIONS: Apixaban 2.5 mg twice a day, cetirizine 10 mg once a day, vitamin D3 1000 units o nce a day, clopidogrel 75 mg once a day, furosemide 20 mg once a day, hyoscyamine sulfate 0.375 mg q .12 hours, levothyroxine 25 mcg once a day, pantoprazole 40 mg once a day, timolol eye drops 1 eye d rop to left eye twice a day and trazodone 150 mg at bedtime. DISCHARGE FOLLOWUP: He is going to follow up with his primary care physician in 1 week. The patient is seen and examined before his discharge and the discharge time is less than 30 minutes .
== END 2016-12-28 14:43 ==
LOC: ERS 13:59 → 2SE 17:09
PROVIDERS: ADMIT Internal Medicine; ATTEND Internal Medicine
DX: G45.9 Transient cerebral ischemic attack, unspecified (principal); D64.9 Anemia, unspecified; I11.0 Hypertensive heart disease with heart failure; I50.30 Unspecified diastolic (congestive) heart failure; I25.2 Old myocardial infarction; E03.9 Hypothyroidism, unspecified; I25.10 Atherosclerotic heart disease of native coronary artery without angina pectoris; H54.7 Unspecified visual loss; N40.0 Benign prostatic hyperplasia without lower urinary tract symptoms; K58.9 Irritable bowel syndrome, unspecified; E78.5 Hyperlipidemia, unspecified; I49.5 Sick sinus syndrome; J30.2 Other seasonal allergic rhinitis; I70.1 Atherosclerosis of renal artery; Z88.5 Allergy status to narcotic agent; Z88.8 Allergy status to other drugs, medicaments and biological substances; Z91.018 Allergy to other foods; Z79.899 Other long term (current) drug therapy; Z95.2 Presence of prosthetic heart valve; Z95.0 Presence of cardiac pacemaker; Z85.46 Personal history of malignant neoplasm of prostate
CPT/HCPCS: 70450; 80048; 80053; 82550; 82553; 84484 ×2; 85025 ×2; 85610; 85730; 93005; 93880; 99285; G0378; 36415

== ENCOUNTER 2017-04-02 10:48 | Emergency (ER) | payer MEDICARE ==
--- NOTE | 2017-04-02 13:03 | ULT ---
RIGHT LOWER EXTREMITY VENOUS DUPLEX SONOGRAM: HISTORY: Right leg pain and edema. FINDINGS: The right common femoral vein and greater saphenous junction were evaluated, along with the femoral, deep femoral, popliteal, and posterior tibial veins. There is good color and spectral Doppler flow, compression, and augmentation. A small amount of fluid is apparent near the upper greater saphenous vein, within the edematous subcutaneous tissues. IMPRESSION: No sonographic evidence of deep venous thrombosis within the right lower extremity. POS: JULIA
--- NOTE | 2017-04-02 17:55 | RAD ---
TWO VIEWS OF THE RIGHT FEMUR: 04/02/17 HISTORY: Right leg swelling. FINDINGS: There is no evidence of a fracture, dislocation involving the right femur. There is mild osteoarthrit is involving the let knee, predominantly involving the medial joint compartment. No lytic or scleroti c osseous lesion is appreciated. Minimal osteoarthritis right hip is present. Vascular calcifications are see in the femoral and popliteal arteries. IMPRESSION: 1. No acute osseous abnormality right femur. 2. 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 3. Vascular calcifications. POS: [facility]
== END 2017-04-02 16:13 | disposition home or self-care (01) ==
LOC: ERS 10:48
DX: M79.89 Other specified soft tissue disorders (principal); E78.5 Hyperlipidemia, unspecified; M81.0 Age-related osteoporosis without current pathological fracture; I11.0 Hypertensive heart disease with heart failure; I50.9 Heart failure, unspecified; Z79.899 Other long term (current) drug therapy

== ENCOUNTER 2017-04-04 09:07 | Inpatient (IN) | payer MEDICARE ==
[2017-04-04 09:48] LABS: #Basophils 0.1 thou/uL (0.0-0.2); #Lymphocytes 1.2 thou/uL (1.20-3.40); #Monocytes 1.6 thou/uL (0.11-0.59); %Basophils 0.8 % (0.0-1.0); %Eosinophils 0.1 % (0.0-10.0); %Lymphocytes 8.5 % (21.0-51.0); %Monocytes 11.2 % (0.0-10.0); %Neutrophils 79.4 % (42.0-75.0); Hemoglobin 6.7 g/dL (14.0-18.0); Mean Corpuscular HGB CONC 33.5 g/dL (32.0-36.0); Mean Corpuscular Hemoglobin 32.8 pg (27.0-31.0); Mean Corpuscular Volume 97.9 fl (80.0-94.0); Mean Platelet Volume 6.8 fL (7.4-10.4); Platelet Count 195 thou/uL (130-400); RBC Distribution Width 14.9 % (11.5-14.5); Red Blood Cell (RBC) Count 2.05 mill/uL (4.70-6.10); White Blood Cell (WBC) Count 13.9 thou/uL (4.8-10.8)
[2017-04-04 09:54] LABS: INR-International Normal Ratio 1.4; PTT 33.2 SEC (22.9-36.1); Prothrombin Time 17.3 SEC (12.0-14.7)
--- NOTE | 2017-04-04 09:58 | RAD ---
PORTABLE CHEST 1 VIEW: Date: 04/04/17 Time: 0949 hours HISTORY: Cough. Bilateral leg swelling. FINDINGS/IMPRESSION: Comparison made with exam dated 11/19/16. The heart size is enlarged. Changes of median sternotomy are again seen. Left-sided pacemaker remains in place. Postop changes of right shoulder arthroplasty again noted with pulmonary vascular congesti on. No pneumothoraces are noted. There is a left pleural effusion with adjacent atelectatic change. POS: [facility]
[2017-04-04 10:12] LABS: ALT (SGPT) 12 U/L (8-55); AST (SGOT) 33 U/L (5-34); Albumin 3.3 g/dL (3.4-4.8); Alkaline Phosphatase 81 U/L (40-150); Anion Gap 12 mmol/L (10-20); BUN (Urea Nitrogen) 23 mg/dL (8.4-25.7); Calc. Creatinine Clearance 0 mL/min (70-130); Calcium 8.1 mg/dL (7.8-10.44); Carbon Dioxide 24 mmol/L (23-31); Chloride 108 mmol/L (98-107); Estimated GFR-MDRD 85; Globulin 3.1 g/dL (2.4-3.5); Glucose 109 mg/dL (83-110); Potassium 4.3 mmol/L (3.5-5.1); Protein, Total 6.4 g/dL (5.8-8.1); Sodium 140 mmol/L (136-145)
[2017-04-04 10:15] LABS: Troponin I 0.136 ng/mL (< 0.028)
[2017-04-04 10:43] LABS: CKMB 7.7 ng/mL (0-6.6)
[2017-04-04 14:05] LABS: Troponin I 0.123 ng/mL (< 0.028)
[2017-04-04 16:40] LABS: Troponin I 0.119 ng/mL (< 0.028)
[2017-04-04 17:15] VITALS: BMI 25.4
[2017-04-04] MEDS ORDERED: Ondansetron ODT 4 MG TAB SL PRN (17:53)
[2017-04-04] MEDS ORDERED: Acetaminophen 325 MG TAB PO PRN (17:53)
[2017-04-04] MEDS ORDERED: Ondansetron HCl/PF 4 MG/2 ML Vial IVP PRN ×2 (17:53→19:00)
[2017-04-04] MEDS ORDERED: hydrALAZINE 20 MG/ML VIAL SLOW IVP PRN (19:00)
[2017-04-04] MEDS ORDERED: cloNIDine 0.1 MG TAB PO PRN (19:00)
[2017-04-04] MEDS ORDERED: Ondansetron ODT 4 MG TAB PO PRN (19:00)
[2017-04-04] MEDS ORDERED: Loratadine 10 MG TAB PO PRN (19:00)
[2017-04-04] MEDS ORDERED: Benzonatate 100 MG CAP PO PRN (19:00)
[2017-04-04] MEDS ORDERED: guaiFENesin/Dextromethorphan 10 ML UDCUP PO PRN (19:00)
[2017-04-04] MEDS: traZODone HCl 150 MG TAB PO SCH (20:01)
[2017-04-04] MEDS: Rosuvastatin 10 MG TAB PO SCH (20:01)
[2017-04-04] MEDS ORDERED: Famotidine 20 MG TAB PO SCH (21:00)
--- NOTE | 2017-04-04 21:39 | HP ---
DATE OF ADMISSION: 04/04/2017 PRIMARY CARE PHYSICIAN: Dr. Gutierrez in [place], [place]. CHIEF COMPLAINT: Right leg swelling. HISTORY OF PRESENT ILLNESS: This is a 76-year-old male who presents to [facility] complaining of right lower extremity swelling and discoloration, which has been notice d by family members since 03/30/2017. The patient apparently on chronic Eliquis and Plavix therapy w ith recent instructions to stop the Eliquis therapy in the last 24 hours according to the patient's s on. The son provides the majority of the history as patient is unable to relay pertinent information in a coherent fashion. The patient was apparently evaluated by the emergency room for swelling and discoloration of the right lower extremity; however, was released back to his retirement where he rec eives ongoing care with a small group of residence. No specific history of recent fall, injury, dire ct trauma. The son reports patient has had increased coughing over the last 2 weeks and apparently h e was placed on antibiotics for suspected bronchitis. The patient has had difficulty with relieving the cough with [id number] remedies. The patient does receive physical and occupational therapy where he currently resides. The patient complains of mild pain to the groin and thigh region on the right, but denies any fever, chills, increased shortness of breath, knee or ankle pain. The patient does states he has difficulty ambulating due to the swelling and pain with movement of the right low er extremity. The patient's history is significant for status post TAVR with continuation of Eliquis since 11/2016. In the emergency room, the patient underwent general evaluation including plain radi ographs of the right lower extremity and venous ultrasound both negative studies. The patient was no rosie with a hemoglobin of 6.7 with previous review of the electronic medical records showing the hemog lobin of 11.5 on 12/28/2016. The patient was typed and crossed and received 1 unit of packed red blo od cells in the emergency room and transferred to the telemetry floor for further evaluation. PAST MEDICAL HISTORY: 1. Chronic atrial fibrillation with chronic anticoagulation with Eliquis. 2. History of transient ischemic attacks. 3. Chronic microcytic anemia. 4. Diastolic congestive heart failure. 5. History of myocardial infarction. 6. Severe aortic stenosis, status post transcatheter aortic valve replacement. 7. Hypertension. 8. Hypothyroidism. 9. Coronary artery disease, chronic. 10. Blindness. 11. Benign prostatic hypertrophy. 12. Hyperlipidemia. 13. Prostate cancer. 14. Renal artery occlusion. 15. Seasonal allergies. 16. Sick sinus syndrome, status post pacemaker placement. PAST SURGICAL HISTORY: 1. Status post coronary artery bypass grafting x4 vessels. 2. Status post prostatectomy. 3. Status post pacemaker placement. 4. Status post right shoulder reconstruction. 5. Status post TAVR in 11/2016. CURRENT MEDICATIONS: 1. Eliquis 2.5 mg p.o. b.i.d. 2. Plavix 75 mg 1 tab p.o. daily. 3. Zyrtec 10 mg p.o. daily. 4. Vitamin D3 of 1000 units p.o. daily. 5. Levothyroxine 75 mcg p.o. daily. 6. Modafinil 100 mg p.o. daily. 7. Protonix 40 mg 1 tab p.o. daily. 8. Crestor 10 mg 1 tab p.o. daily. 9. Timolol 0.25% 1 drop to the left eye b.i.d. 10. Trazodone 150 mg p.o. at bedtime. ALLERGIES: 1. ASPIRIN. 2. CAFFEINE. 3. CODEINE. 4. ERYTHROMYCIN. FAMILY HISTORY: Father had a myocardial infarction in his 80s. Mother was healthy, dying of natural causes at 96 years of age. SOCIAL HISTORY: Currently resides in a retirement near [facility]. Ambulates with rolling walker. No current alcohol, tobacco or illicit drug use. Accompanied by his son in the hospital. REVIEW OF SYSTEMS: The following complete review of systems was negative, unless otherwise mentioned in the HPI or below: Constitutional: Weight loss or gain, ability to conduct usual activities. Skin: Rash, itching. Eyes: Double vision, pain. ENT/Mouth: Nose bleeding, neck stiffness, pain, tenderness. Cardiovascular: Palpitations, dyspnea on exertion, orthopnea. Respiratory: Shortness of breath, wheezing, cough, hemoptysis, fever or night sweats. Gastrointestinal: Poor appetite, abdominal pain, heartburn, nausea, vomiting, constipation, or diarr hea. Genitourinary: Urgency, frequency, dysuria, nocturia. Musculoskeletal: Pain, swelling. Neurologic/Psychiatric: Anxiety, depression. Allergy/Immunologic: Skin rash, bleeding tendency. Otherwise negative except as stated per HPI. PHYSICAL EXAMINATION: VITAL SIGNS: On admission, blood pressure 149/63, pulse 79, respiratory rate 18, temperature 98.2 de grees Fahrenheit, and O2 saturation 94% on 1 liter per minute by nasal cannula. GENERAL APPEARANCE: This is a 76-year-old male, alert, responds to questions, in no acute distress. HEENT: Pupils are equal, round, and reactive to light. Do not track to face or voice. Nares patent . OP is clear. Teeth in fair repair. NECK: Supple, no cervical adenopathy, no thyromegaly, no carotid bruits, no JVD appreciated. Cervic al spine with full active and passive range of motion. No meningeal signs appreciated. CHEST: Lungs are clear to auscultation bilaterally. CARDIOVASCULAR: S1, S2 with irregular rate and rhythm. ABDOMEN: Rounded, soft, nontender, nondistended. Bowel sounds are positive in all four quadrants. There is no hepatosplenomegaly, no abdominal bruits, no rebound or guarding appreciated. EXTREMITIES: Right lower extremity with marked edema, discoloration, ecchymosis from the groin to th e knee. Nonpitting edema noted. Pulses are palpable distally at the dorsalis pedis, posterior tibia l, and popliteal arteries bilaterally. Capillary refill less than 2 seconds. NEUROLOGIC: Cranial nerves II-XII are grossly intact. The patient not observed ambulatory during th is exam. Alert and oriented x2. PERTINENT LABORATORY AND X-RAY FINDINGS: Sodium 140, potassium 4.3, chloride 108, CO2 of 24, BUN 23, creatinine 0.87, estimated GFR of 85, glucose 109, calcium is 8.1, total bilirubin 1.0, AST 33, ALT of 12, alkaline phosphatase 81. Troponin I ranged between 0.119-0.136. BNP 301, previously noted on 11/17/2016 of 2090. CBC showed a white blood cell count of 13.9, hemoglobin 6.7. Previous hemoglob in noted as 11.5 on 12/28/2016, hematocrit 28.1, platelet count 195 with 79% neutrophils. PT 17.3, I NR 1.4, PTT 33.2. Right lower extremity venous Doppler study dated 04/02/2017 showed no evidence for DVT. Two views of the right femur dated 04/02/2017 showed no acute fracture or dislocation. Osteoa rthritic changes noted. Portable chest x-ray dated 04/04/2017 showed cardiomegaly. Left-sided pacem nilesh device in place. Left pleural effusion with associated atelectasis. EKG dated 04/04/2017 by my interpretation shows atrial fibrillation with heart rates in the 80s. Attenuated R waves noted in t he precordial leads. Right bundle branch block pattern. ASSESSMENT AND PLAN: 1. Right lower extremity hematoma. Exact etiology unclear; however, may be related to recent coughi ng over the last 2 weeks. Coughing in the context of ongoing anticoagulation with Eliquis. We will continue symptomatic and supportive measures. We will consult General Surgery Service for any furthe r recommendations. Discontinue Eliquis. Serial monitoring. No current evidence of vascular thrombo sis. 2. Acute blood loss anemia. Status post 1 unit of packed red blood cells in the emergency room. We will continue serial H&H monitoring. Discontinue Plavix and Eliquis. 3. Elevated troponin I. Suspect demand ischemia given patient's hematoma of the right lower extremi ty and known history of diastolic heart failure and chronic stable coronary artery disease. Continue supportive management. 4. Status post bronchitis. We will continue antitussive agents. Portable chest x-ray showing no ac lidia infiltrate. 5. Chronic atrial fibrillation with chronic anticoagulation with Eliquis. We will continue rate con trol measures. Hold anticoagulation secondarily to #1 and #2. 6. Hypertension. Resume home antihypertensive regimen and monitor clinical response. 7. Coronary artery disease, chronic and stable. Continue symptomatic and supportive measures. Resu me home regimen to include Plavix after stabilization of right lower extremity hematoma. 8. Status post transcatheter aortic valve replacement. Stable currently. No evidence to suggest cl inical decompensation. Hold anticoagulation due to acute blood loss of the right lower extremity. 9. Prophylaxis. Sequential compression devices will be held due to edema and coagulation disorder. No anticoagulation. Protonix 40 mg p.o. daily. 10. Code status is FULL. Surrogate medical decision maker is patient's son.
[2017-04-04] MEDS: Timolol 0.25% Ophth Soln 5 ml Bottle L EYE SCH (23:44)
[2017-04-05 05:44] LABS: Anion Gap 9 mmol/L (10-20); BUN (Urea Nitrogen) 21 mg/dL (8.4-25.7); Calc. Creatinine Clearance 90 mL/min (70-130); Calcium 7.6 mg/dL (7.8-10.44); Carbon Dioxide 23 mmol/L (23-31); Chloride 109 mmol/L (98-107); Estimated GFR-MDRD Greater than 90; Glucose 94 mg/dL (83-110); Sodium 137 mmol/L (136-145)
[2017-04-05] MEDS: Levothyroxine Sodium 75 MCG TAB PO SCH (05:58)
[2017-04-05] MEDS: Acetaminophen 500 MG TAB PO PRN ×2 (05:58→11:24)
[2017-04-05 06:09] LABS: Band 7 % (5-11); Hemoglobin 6.3 g/dL (14.0-18.0); Lymphocytes 7 % (21-51); MDiff Complete? YES; Mean Corpuscular HGB CONC 32.9 g/dL (32.0-36.0); Mean Corpuscular Hemoglobin 31.9 pg (27.0-31.0); Mean Platelet Volume 6.7 fL (7.4-10.4); Monocytes 10 % (0-10); Myelocyte 2 % (0-0); Neutrophil 74 % (42-75); Platelet Count 180 thou/uL (130-400); RBC Distribution Width 15.2 % (11.5-14.5); Red Blood Cell (RBC) Count 1.97 mill/uL (4.70-6.10); White Blood Cell (WBC) Count 12.9 thou/uL (4.8-10.8)
--- NOTE | 2017-04-05 09:38 | CON ---
DATE OF CONSULTATION: 04/05/2017 CHIEF COMPLAINT: Right leg swelling. HISTORY OF PRESENT ILLNESS: This is a 76-year-old male who presents with a history of swelling, brui sing in the right side, mostly on the medial aspect, painful to touch. He is very limited in his mob ility normally. He lives in a home. He also has some chronic dementia, so most of the history is ob tained from the chart. The patient was on Eliquis. This has been stopped. Not complaining of signi ficant pain this morning. He had plain films of the right lower extremity that showed no fracture. Duplex ultrasound showed no evidence of venous clot. PAST MEDICAL HISTORY: Chronic atrial fibrillation on Eliquis, TIA, chronic anemia, congestive heart failure, aortic stenosis, hypertension, hypothyroidism, coronary artery disease, BPH, prostate cancer , sick sinus syndrome, blindness. PAST SURGICAL HISTORY: Includes CABG, prostatectomy, pacemaker, right shoulder TAVR. MEDICINES: Normally at home, Eliquis, Plavix, Zyrtec, vitamin D3, levothyroxine, Protonix, Crestor, atenolol, trazodone. ALLERGIES: ASPIRIN, CAFFEINE, CODEINE, and ERYTHROMYCIN. SOCIAL HISTORY: Lives in a shelter in [place]. Normally ambulates with a walker. No history of t rauma or fall. REVIEW OF SYSTEMS: Ten system review of systems otherwise negative unless described above. PHYSICAL EXAMINATION: VITAL SIGNS: Blood pressure 125/63, pulse is 73, his respirations are 20, O2 sat 96% on 2 liters [place] al cannula. HEENT: Sclerae are anicteric. Oropharynx clear. NECK: No lymphadenopathy. CHEST: Clear. HEART: Regular rate and regular rhythm. ABDOMEN: Soft and nontender. EXTREMITIES: Examination of the bilateral groins reveals palpable pulses. Right thigh has pitting e haris. Bruising and ecchymoses more on the medial side involving the knee. Right lower extremity has swelling, but no evidence of compartment syndrome. He has good dorsiflexion and no motor or sensory loss to either lower extremity. Weakly palpable pulses, bilateral dorsalis pedis, posterior tibial. IMAGING DATA: Ultrasound, no DVT. Plain films show no fracture of the right lower extremity. ASSESSMENT: Likely spontaneous bleeding from Eliquis, right lower extremity. No operative treatment needed. Agree with current therapy, hold Eliquis and keep elevated. We will follow on an as needed basis.
[2017-04-05] MEDS: Modafinil 100 MG TAB PO SCH (10:01)
--- NOTE | 2017-04-05 11:24 | PDOC.PN ---
- Subjective Encounter Start Date: 04/05/17 Encounter Start Time: 07:20 Pt seen for followup re:anemia of acute blood loss. Reports pain inner right thigh. No chest pain or shortness of breath. No fevers or chills. - Objective Resuscitation Status: Resuscitation Status FULL:Full Resuscitation MAR Reviewed: Yes Vital Signs & Weight: Vital Signs (12 hours) Temp Pulse Pulse Resp BP BP Pulse Ox 04/05/17 07:50 98.0 F 76 22 H 126/59 L 95 04/05/17 07:30 98.0 F 76 22 H 125/63 96 04/05/17 04:00 98.5 F 73 20 114/60 97 Weight Weight 172 lb 9 oz I&O: 04/04/17 04/05/17 04/06/17 06:59 06:59 06:59 Intake Total 120 350 Balance 120 350 Result Diagrams: 04/05/17 04:49 04/05/17 04:49 EKG Reviewed by me: Yes (Tele: a. lexie) Phys Exam - Physical Examination Constitutional: NAD HEENT: PERRLA, moist MMs, sclera anicteric, oral pharynx no lesions Neck: no nodes, no JVD, supple, full ROM Respiratory: no wheezing, no rales, no rhonchi, clear to auscultation bilateral Cardiovascular: no rub, irregular Gastrointestinal: soft Musculoskeletal: pulses present Neurological: non-focal, moves all 4 limbs no neuro deficits in right lower extremity Psychiatric: normal affect Deviation from normal: R thigh hematoma Dx/Plan (1) Anemia, posthemorrhagic, acute Code(s): D62 - ACUTE POSTHEMORRHAGIC ANEMIA Status: Acute (2) Hematoma Code(s): T14.8XXA - OTHER INJURY OF UNSPECIFIED BODY REGION, INITIAL ENCOUNTER Status: Acute (3) History of atrial fibrillation Code(s): Z86.79 - PERSONAL HISTORY OF OTHER DISEASES OF THE CIRCULATORY SYSTEM Status: Chronic (4) S/P TAVR (transcatheter aortic valve replacement) Code(s): Z95.2 - PRESENCE OF PROSTHETIC HEART VALVE Status: Chronic (5) Hypertension Code(s): I10 - ESSENTIAL (PRIMARY) HYPERTENSION Status: Chronic (6) Hypothyroid Code(s): E03.9 - HYPOTHYROIDISM, UNSPECIFIED Status: Chronic - Plan PT/OT, speech therapy * . Eliquis is on hold. Surgical consult pending. Follow blood counts. Awaiting speech therapy eval. Review of Systems - Review of Systems Constitutional: negative: fever, chills, sweats, weakness, malaise Respiratory: negative: Cough, Dry, Shortness of Breath, Hemoptysis, SOB with Excertion, Pleuritic Pain, Sputum, Wheezing Cardiovascular: negative: chest pain, palpitations, orthopnea, paroxysmal nocturnal dyspnea, edema, light headedness Gastrointestinal: negative: Nausea, Vomiting, Abdominal Pain, Diarrhea, Constipation, Melena, Hematochezia Musculoskeletal: Other (Thigh pain) Skin: negative: Rash, Lesions, Cale, Bruising - Medications/Allergies Allergies/Adverse Reactions: Allergies Allergy/AdvReac Type Severity Reaction Status Date / Time aspirin Allergy Verified 04/04/17 18:19 caffeine Allergy Verified 04/04/17 18:19 codeine Allergy Verified 04/04/17 18:19 erythromycin base Allergy Verified 04/04/17 18:19 Medications: Current Medications Acetaminophen (Tylenol) 1,000 mg PO Q6H PRN PRN Reason: Headache/Fever or Mild Pain Last Admin: 04/05/17 05:58 Dose: 1,000 mg Benzonatate (Tessalon) 200 mg PO Q6H PRN PRN Reason: Cough Cholecalciferol (Vitamin D3) 1,000 units PO DAILY [facility] Last Admin: 04/05/17 10:00 Dose: 1,000 units Clonidine (Catapres) 0.1 mg PO Q4H PRN PRN Reason: Systolic BP > 180 Guaifenesin/Dextromethorphan (Robitussin Dm) 10 ml PO Q6H PRN PRN Reason: Cough Hydralazine HCl (Apresoline) 10 mg SLOW IVP Q4H PRN PRN Reason: Systolic BP > 180 Levothyroxine Sodium (Synthroid) 75 mcg PO 0600 [facility] Last Admin: 04/05/17 05:58 Dose: 75 mcg Loratadine (Claritin) 10 mg PO DAILY PRN PRN Reason: Allergies Modafinil (Provigil) 100 mg PO DAILY [facility] Last Admin: 04/05/17 10:01 Dose: 100 mg Ondansetron HCl (Zofran Odt) 4 mg PO Q6H PRN PRN Reason: Nausea/Vomiting Ondansetron HCl (Zofran) 4 mg IVP Q6H PRN PRN Reason: Nausea/Vomiting Pantoprazole Sodium (Protonix) 40 mg PO DAILY [facility] Last Admin: 04/05/17 10:00 Dose: 40 mg Rosuvastatin Calcium (Crestor) 10 mg PO [facility] Last Admin: 04/04/17 20:01 Dose: 10 mg Timolol Maleate (Timoptic 0.25% Ophth Soln) 1 drop L EYE BID [facility] Last Admin: 04/04/17 23:44 Dose: 1 drop Trazodone HCl (Desyrel) 150 mg PO [facility] Last Admin: 04/04/17 20:01 Dose: Not Given
[2017-04-05] MEDS: Timolol 0.25% Ophth Soln 5 ml Bottle L EYE SCH ×2 (11:28→21:51)
[2017-04-05] MEDS ORDERED: Morphine 5 MG/ML SYRINGE SLOW IVP SCH (12:00)
[2017-04-05] MEDS ORDERED: Sodium Chloride 0.9% 10 ML ONE ×2 (14:42→21:43)
[2017-04-05] MEDS: Morphine 5 MG/ML SYRINGE SLOW IVP SCH ×2 (14:56→21:51)
[2017-04-05] MEDS: traZODone HCl 150 MG TAB PO SCH (21:51)
[2017-04-05] MEDS: Rosuvastatin 10 MG TAB PO SCH (21:51)
[2017-04-06 05:24] LABS: #Lymphocytes 1.1 thou/uL (1.20-3.40); #Neutrophils 9.5 thou/uL (1.40-6.50); %Basophils 0.3 % (0.0-1.0); %Eosinophils 0.4 % (0.0-10.0); %Lymphocytes 9.3 % (21.0-51.0); %Monocytes 8.9 % (0.0-10.0); %Neutrophils 81.1 % (42.0-75.0); Hemoglobin 6.7 g/dL (14.0-18.0); Mean Corpuscular HGB CONC 32.3 g/dL (32.0-36.0); Mean Corpuscular Hemoglobin 31.2 pg (27.0-31.0); Mean Corpuscular Volume 96.7 fl (80.0-94.0); Mean Platelet Volume 6.6 fL (7.4-10.4); Platelet Count 186 thou/uL (130-400); RBC Distribution Width 14.7 % (11.5-14.5); Red Blood Cell (RBC) Count 2.15 mill/uL (4.70-6.10); White Blood Cell (WBC) Count 11.7 thou/uL (4.8-10.8)
[2017-04-06] MEDS: Levothyroxine Sodium 75 MCG TAB PO SCH (06:13)
[2017-04-06] MEDS: Morphine 5 MG/ML SYRINGE SLOW IVP PRN ×2 (10:33→16:38)
[2017-04-06] MEDS: Timolol 0.25% Ophth Soln 5 ml Bottle L EYE SCH ×2 (11:21→20:54)
[2017-04-06] MEDS: Modafinil 100 MG TAB PO SCH (11:22)
--- NOTE | 2017-04-06 13:15 | PDOC.PN ---
- Subjective Encounter Start Date: 04/06/17 Encounter Start Time: 07:40 Pt seen for followup re: anemia of acute blood loss. Denies chest pain or shortness of breath. Has pain R thigh. - Objective Resuscitation Status: Resuscitation Status FULL:Full Resuscitation MAR Reviewed: Yes Vital Signs & Weight: Vital Signs (12 hours) Temp Pulse Pulse Pulse Pulse Resp BP 04/06/17 11:58 98.1 F 67 18 04/06/17 09:40 97.4 F L 86 18 04/06/17 09:18 81 86 110/56 L 04/06/17 08:00 98.3 F 73 18 04/06/17 06:11 98.5 F 71 28 H 04/06/17 05:50 98.2 F 78 28 H 04/06/17 04:00 97.9 F 73 16 BP BP BP Pulse Ox 04/06/17 11:58 131/63 97 04/06/17 09:40 136/63 97 04/06/17 09:18 136/63 04/06/17 08:00 126/63 97 04/06/17 06:11 131/63 98 04/06/17 05:50 117/66 97 04/06/17 04:00 113/65 98 Weight Weight 172 lb 9 oz I&O: 04/05/17 04/06/17 04/07/17 06:59 06:59 06:59 Intake Total 120 995 350 Output Total 100 Balance 120 895 350 Result Diagrams: 04/06/17 04:55 04/05/17 04:49 EKG Reviewed by me: Yes (Tele: dimas owen) Phys Exam - Physical Examination Constitutional: NAD HEENT: moist MMs Neck: supple Respiratory: clear to auscultation bilateral Cardiovascular: irregular Gastrointestinal: soft Musculoskeletal: pulses present Neurological: moves all 4 limbs Psychiatric: normal affect Deviation from normal: Bruise R thigh Dx/Plan (1) Anemia, posthemorrhagic, acute Code(s): D62 - ACUTE POSTHEMORRHAGIC ANEMIA Status: Acute (2) Hematoma Code(s): T14.8XXA - OTHER INJURY OF UNSPECIFIED BODY REGION, INITIAL ENCOUNTER Status: Acute (3) History of atrial fibrillation Code(s): Z86.79 - PERSONAL HISTORY OF OTHER DISEASES OF THE CIRCULATORY SYSTEM Status: Chronic (4) S/P TAVR (transcatheter aortic valve replacement) Code(s): Z95.2 - PRESENCE OF PROSTHETIC HEART VALVE Status: Chronic (5) Hypertension Code(s): I10 - ESSENTIAL (PRIMARY) HYPERTENSION Status: Chronic (6) Hypothyroid Code(s): E03.9 - HYPOTHYROIDISM, UNSPECIFIED Status: Chronic - Plan PT/OT, out of bed/ambulate * . Transfuse 2 units pRBC (h/o CAD). Hold apixaban and Plavix. Ambulate patient. Continue statin, synthroid. Review of Systems - Review of Systems Respiratory: negative: Cough, Dry, Shortness of Breath, Hemoptysis, SOB with Excertion, Pleuritic Pain, Sputum, Wheezing Cardiovascular: negative: chest pain, palpitations, orthopnea, paroxysmal nocturnal dyspnea, edema, light headedness Musculoskeletal: Other (thigh pain (R)) - Medications/Allergies Allergies/Adverse Reactions: Allergies Allergy/AdvReac Type Severity Reaction Status Date / Time aspirin Allergy Verified 04/04/17 18:19 caffeine Allergy Verified 04/04/17 18:19 codeine Allergy Verified 04/04/17 18:19 erythromycin base Allergy Verified 04/04/17 18:19 Medications: Current Medications Acetaminophen (Tylenol) 1,000 mg PO Q6H PRN PRN Reason: Headache/Fever or Mild Pain Last Admin: 04/05/17 11:24 Dose: 1,000 mg Benzonatate (Tessalon) 200 mg PO Q6H PRN PRN Reason: Cough Cholecalciferol (Vitamin D3) 1,000 units PO DAILY [facility] Last Admin: 04/06/17 11:21 Dose: 1,000 units Clonidine (Catapres) 0.1 mg PO Q4H PRN PRN Reason: Systolic BP > 180 Guaifenesin/Dextromethorphan (Robitussin Dm) 10 ml PO Q6H PRN PRN Reason: Cough Hydralazine HCl (Apresoline) 10 mg SLOW IVP Q4H PRN PRN Reason: Systolic BP > 180 Levothyroxine Sodium (Synthroid) 75 mcg PO 0600 [facility] Last Admin: 04/06/17 06:13 Dose: 75 mcg Loratadine (Claritin) 10 mg PO DAILY PRN PRN Reason: Allergies Modafinil (Provigil) 100 mg PO DAILY [facility] Last Admin: 02/18/18 11:22 Dose: 100 mg Morphine Sulfate (Morphine) 2 mg SLOW IVP Q6H PRN PRN Reason: Pain Last Admin: 04/06/17 10:33 Dose: 2 mg Ondansetron HCl (Zofran Odt) 4 mg PO Q6H PRN PRN Reason: Nausea/Vomiting Ondansetron HCl (Zofran) 4 mg IVP Q6H PRN PRN Reason: Nausea/Vomiting Pantoprazole Sodium (Protonix) 40 mg PO DAILY [facility] Last Admin: 04/06/17 11:22 Dose: 40 mg Rosuvastatin Calcium (Crestor) 10 mg PO HS [facility] Last Admin: 04/05/17 21:51 Dose: 10 mg Timolol Maleate (Timoptic 0.25% Oph Soln) 1 drop L EYE BID [facility] Last Admin: 04/06/17 11:21 Dose: 1 drop Trazodone HCl (Desyrel) 150 mg PO HS [facility] Last Admin: 04/05/17 21:51 Dose: 150 mg
[2017-04-06] MEDS: Rosuvastatin 10 MG TAB PO SCH (20:54)
[2017-04-06] MEDS: traZODone HCl 150 MG TAB PO SCH (20:54)
[2017-04-06] MEDS: Acetaminophen 500 MG TAB PO PRN (21:32)
[2017-04-07] MEDS: Morphine 5 MG/ML SYRINGE SLOW IVP PRN ×3 (00:45→20:04)
[2017-04-07] MEDS: Sodium Chloride 0.9% 10 ML ONE (00:51)
[2017-04-07] MEDS: Levothyroxine Sodium 75 MCG TAB PO SCH (05:48)
[2017-04-07] MEDS: Acetaminophen 500 MG TAB PO PRN (05:48)
[2017-04-07 05:49] LABS: #Eosinphils 0.1 thou/uL (0.0-0.7); #Neutrophils 8.7 thou/uL (1.40-6.50); %Eosinophils 0.8 % (0.0-10.0); %Lymphocytes 9.7 % (21.0-51.0); %Monocytes 9.1 % (0.0-10.0); %Neutrophils 80.5 % (42.0-75.0); Hemoglobin 7.9 g/dL (14.0-18.0); Mean Corpuscular Hemoglobin 30.9 pg (27.0-31.0); Mean Corpuscular Volume 93.6 fl (80.0-94.0); Mean Platelet Volume 6.9 fL (7.4-10.4); Platelet Count 160 thou/uL (130-400); RBC Distribution Width 15.4 % (11.5-14.5); Red Blood Cell (RBC) Count 2.54 mill/uL (4.70-6.10); White Blood Cell (WBC) Count 10.7 thou/uL (4.8-10.8)
[2017-04-07] MEDS: Timolol 0.25% Ophth Soln 5 ml Bottle L EYE SCH (10:11)
[2017-04-07] MEDS: Modafinil 100 MG TAB PO SCH (11:55)
--- NOTE | 2017-04-07 13:57 | PDOC.PN ---
- Subjective Encounter Start Date: 04/07/17 Encounter Start Time: 08:00 Pt seen for followup re: anemia. No complaints today. - Objective Resuscitation Status: Resuscitation Status FULL:Full Resuscitation MAR Reviewed: Yes Vital Signs & Weight: Vital Signs (12 hours) Temp Pulse Resp BP Pulse Ox 04/07/17 11:53 98.0 F 71 18 129/60 96 04/07/17 08:00 98.0 F 71 18 125/67 96 04/07/17 03:44 97.8 F 68 18 123/65 95 Weight Weight 170 lb 5 oz I&O: 04/06/17 04/07/17 04/08/17 06:59 06:59 06:59 Intake Total 995 2530 Output Total 100 Balance 895 2530 Result Diagrams: 04/07/17 04:23 04/05/17 04:49 EKG Reviewed by me: Yes (Tele: dimas owen) Phys Exam - Physical Examination Constitutional: NAD HEENT: moist MMs Neck: supple Respiratory: clear to auscultation bilateral Cardiovascular: irregular Gastrointestinal: soft Neurological: moves all 4 limbs Psychiatric: normal affect Deviation from normal: Bruise right thigh Dx/Plan (1) Anemia, posthemorrhagic, acute Code(s): D62 - ACUTE POSTHEMORRHAGIC ANEMIA Status: Acute (2) Hematoma Code(s): T14.8XXA - OTHER INJURY OF UNSPECIFIED BODY REGION, INITIAL ENCOUNTER Status: Acute (3) History of atrial fibrillation Code(s): Z86.79 - PERSONAL HISTORY OF OTHER DISEASES OF THE CIRCULATORY SYSTEM Status: Chronic (4) S/P TAVR (transcatheter aortic valve replacement) Code(s): Z95.2 - PRESENCE OF PROSTHETIC HEART VALVE Status: Chronic (5) Hypertension Code(s): I10 - ESSENTIAL (PRIMARY) HYPERTENSION Status: Chronic (6) Hypothyroid Code(s): E03.9 - HYPOTHYROIDISM, UNSPECIFIED Status: Chronic - Plan PT/OT, out of bed/ambulate * . Hemoglobin improved after pRBC transfusion. Discussed with vascular surgery service, was advised to hold anticoagulation and monitor counts. Review of Systems - Review of Systems Constitutional: negative: fever, chills, sweats, weakness, malaise Respiratory: negative: Cough, Dry, Shortness of Breath, Hemoptysis, SOB with Excertion, Pleuritic Pain, Sputum, Wheezing - Medications/Allergies Allergies/Adverse Reactions: Allergies Allergy/AdvReac Type Severity Reaction Status Date / Time aspirin Allergy Verified 04/04/17 18:19 caffeine Allergy Verified 04/04/17 18:19 codeine Allergy Verified 04/04/17 18:19 erythromycin base Allergy Verified 04/04/17 18:19 Medications: Current Medications Acetaminophen (Tylenol) 1,000 mg PO Q6H PRN PRN Reason: Headache/Fever or Mild Pain Last Admin: 04/07/17 05:48 Dose: 1,000 mg Benzonatate (Tessalon) 200 mg PO Q6H PRN PRN Reason: Cough Cholecalciferol (Vitamin D3) 1,000 units PO DAILY [facility] Last Admin: 04/07/17 10:13 Dose: 1,000 units Clonidine (Catapres) 0.1 mg PO Q4H PRN PRN Reason: Systolic BP > 180 Guaifenesin/Dextromethorphan (Robitussin Dm) 10 ml PO Q6H PRN PRN Reason: Cough Hydralazine HCl (Apresoline) 10 mg SLOW IVP Q4H PRN PRN Reason: Systolic BP > 180 Levothyroxine Sodium (Synthroid) 75 mcg PO 0600 [facility] Last Admin: 04/07/17 05:48 Dose: 75 mcg Loratadine (Claritin) 10 mg PO DAILY PRN PRN Reason: Allergies Modafinil (Provigil) 100 mg PO DAILY [facility] Last Admin: 04/07/17 11:55 Dose: 100 mg Morphine Sulfate (Morphine) 2 mg SLOW IVP Q6H PRN PRN Reason: Pain Last Admin: 04/07/17 10:21 Dose: 2 mg Ondansetron HCl (Zofran Odt) 4 mg PO Q6H PRN PRN Reason: Nausea/Vomiting Ondansetron HCl (Zofran) 4 mg IVP Q6H PRN PRN Reason: Nausea/Vomiting Pantoprazole Sodium (Protonix) 40 mg PO DAILY [facility] Last Admin: 04/07/17 10:12 Dose: 40 mg Rosuvastatin Calcium (Crestor) 10 mg PO HS [facility] Last Admin: 04/06/17 20:54 Dose: 10 mg Timolol Maleate (Timoptic 0.25% Ophth Soln) 1 drop L EYE BID [facility] Last Admin: 04/07/17 10:11 Dose: 1 drop Trazodone HCl (Desyrel) 150 mg PO HS [facility] Last Admin: 04/06/17 20:54 Dose: 150 mg
[2017-04-07] MEDS ORDERED: Sodium Chloride 0.9% 10 ML ONE (19:59)
[2017-04-07] MEDS: Rosuvastatin 10 MG TAB PO SCH (20:07)
[2017-04-07] MEDS: traZODone HCl 150 MG TAB PO SCH (20:07)
[2017-04-08] MEDS: Timolol 0.25% Ophth Soln 5 ml Bottle L EYE SCH ×3 (00:54→20:22)
[2017-04-08] MEDS: Acetaminophen 500 MG TAB PO PRN (05:56)
[2017-04-08] MEDS: Levothyroxine Sodium 75 MCG TAB PO SCH (05:57)
[2017-04-08 06:16] LABS: Iron 43 ug/dL (65-175); Iron Binding Capacity, Total 278 mcg/dL (261-462)
[2017-04-08 06:24] LABS: Hemoglobin 8.1 g/dL (14.0-18.0); Platelet Count 179 thou/uL (130-400)
[2017-04-08] MEDS: Modafinil 100 MG TAB PO SCH (09:19)
[2017-04-08] MEDS: Sodium Chloride 0.9% 10 ML ONE (09:20)
--- NOTE | 2017-04-08 09:51 | PRG ---
DATE OF SERVICE: 04/08/2017 SUBJECTIVE: Mr. Marquis is outlined in the chart, was admitted to the hospital with spontaneous blee ding into the right thigh with an extensive hematoma. His hemoglobin dropped down to 6.7. He did require transfusion. He has no chest pain or pressure. OBJECTIVE: VITAL SIGNS: Blood pressure 125/80, pulse at 70, it is irregular. LUNGS: Clear. CARDIAC: Irregular, irregular. ABDOMEN: Soft, nontender. EXTREMITIES: There is extensive ecchymosis and swelling of the right thigh. PERTINENT LABORATORY DATA: Hemoglobin is up to 8.1. Ferritin levels checked and it is 125, iron lev el is low at 43. ASSESSMENT: 1. Spontaneous hematoma in the right thigh requiring packed red blood cells. 2. History of atrial fibrillation. 3. History of transcutaneous aortic valve replacement. 4. Transient ischemia attack, previously thought to be probably cardioembolic. PLAN: 1. At this time, have to stay off the anticoagulant in view of the extensive hematoma. 2. Ultimately, we need to try to resume anticoagulants, could consider some type of left atrial appe ndage occlusion device to avoid long-term anticoagulation, but that would require at least 7 weeks of anticoagulant, prognosis is guarded at this time. At this time, we are going to have stay off the a nticoagulant.
--- NOTE | 2017-04-08 15:18 | PDOC.PN ---
- Subjective Encounter Start Date: 04/08/17 Encounter Start Time: 09:20 Pt seen for followup re: anemia. Denies chest pain, shortness of breath. - Objective Resuscitation Status: Resuscitation Status FULL:Full Resuscitation MAR Reviewed: Yes Vital Signs & Weight: Vital Signs (12 hours) Temp Pulse Pulse Pulse Resp BP BP 04/08/17 13:22 97.6 F 72 16 04/08/17 12:40 97.6 F 72 16 04/08/17 11:46 98 F 69 16 04/08/17 08:20 79 75 138/67 119/70 04/08/17 07:40 98 F 68 16 04/08/17 07:34 98 F 68 16 04/08/17 04:00 98.6 F 73 14 BP Pulse Ox 04/08/17 13:22 97 04/08/17 12:40 154/64 H 04/08/17 11:46 127/57 L 97 04/08/17 08:20 04/08/17 07:40 97 04/08/17 07:34 125/83 97 04/08/17 04:00 113/57 L 96 Weight Weight 170 lb 5 oz I&O: 04/07/17 04/08/17 04/09/17 06:59 06:59 06:59 Intake Total 2530 960 Output Total 325 Balance 2530 635 Result Diagrams: 04/08/17 04:57 04/05/17 04:49 Phys Exam - Physical Examination Constitutional: NAD HEENT: moist MMs Respiratory: clear to auscultation bilateral Cardiovascular: irregular L thigh hematoma Neurological: moves all 4 limbs Psychiatric: normal affect Dx/Plan (1) Anemia, posthemorrhagic, acute Code(s): D62 - ACUTE POSTHEMORRHAGIC ANEMIA Status: Acute (2) Hematoma Code(s): T14.8XXA - OTHER INJURY OF UNSPECIFIED BODY REGION, INITIAL ENCOUNTER Status: Acute (3) History of atrial fibrillation Code(s): Z86.79 - PERSONAL HISTORY OF OTHER DISEASES OF THE CIRCULATORY SYSTEM Status: Chronic (4) S/P TAVR (transcatheter aortic valve replacement) Code(s): Z95.2 - PRESENCE OF PROSTHETIC HEART VALVE Status: Chronic (5) Hypertension Code(s): I10 - ESSENTIAL (PRIMARY) HYPERTENSION Status: Chronic (6) Hypothyroid Code(s): E03.9 - HYPOTHYROIDISM, UNSPECIFIED Status: Chronic - Plan PT/OT, out of bed/ambulate * . Continue to hold anticoagulation. Mobilize patient. Continue statin, synthroid. Monitor vital signs, titrate antihypertensives as needed. Needs discharge planning, not ambilating much. Review of Systems - Review of Systems Cardiovascular: negative: chest pain, palpitations, orthopnea, paroxysmal nocturnal dyspnea, edema, light headedness - Medications/Allergies Allergies/Adverse Reactions: Allergies Allergy/AdvReac Type Severity Reaction Status Date / Time aspirin Allergy Verified 04/04/17 18:19 caffeine Allergy Verified 04/04/17 18:19 codeine Allergy Verified 04/04/17 18:19 erythromycin base Allergy Verified 04/04/17 18:19 Medications: Current Medications Acetaminophen (Tylenol) 1,000 mg PO Q6H PRN PRN Reason: Headache/Fever or Mild Pain Last Admin: 04/08/17 05:56 Dose: 1,000 mg Benzonatate (Tessalon) 200 mg PO Q6H PRN PRN Reason: Cough Cholecalciferol (Vitamin D3) 1,000 units PO DAILY [facility] Last Admin: 04/08/17 09:19 Dose: 1,000 units Clonidine (Catapres) 0.1 mg PO Q4H PRN PRN Reason: Systolic BP > 180 Guaifenesin/Dextromethorphan (Robitussin Dm) 10 ml PO Q6H PRN PRN Reason: Cough Hydralazine HCl (Apresoline) 10 mg SLOW IVP Q4H PRN PRN Reason: Systolic BP > 180 Levothyroxine Sodium (Synthroid) 75 mcg PO 0600 [facility] Last Admin: 04/08/17 05:57 Dose: 75 mcg Loratadine (Claritin) 10 mg PO DAILY PRN PRN Reason: Allergies Modafinil (Provigil) 100 mg PO DAILY [facility] Last Admin: 04/08/17 09:19 Dose: 100 mg Morphine Sulfate (Morphine) 2 mg SLOW IVP Q6H PRN PRN Reason: Pain Last Admin: 04/07/17 20:04 Dose: 2 mg Ondansetron HCl (Zofran Odt) 4 mg PO Q6H PRN PRN Reason: Nausea/Vomiting Ondansetron HCl (Zofran) 4 mg IVP Q6H PRN PRN Reason: Nausea/Vomiting Pantoprazole Sodium (Protonix) 40 mg PO DAILY [facility] Last Admin: 04/08/17 09:19 Dose: 40 mg Rosuvastatin Calcium (Crestor) 10 mg PO [facility] Last Admin: 04/07/17 20:07 Dose: 10 mg Timolol Maleate (Timoptic 0.25% Ophth Soln) 1 drop L EYE BID [facility] Last Admin: 04/08/17 09:19 Dose: 1 drop Trazodone HCl (Desyrel) 150 mg PO [facility] Last Admin: 04/07/17 20:07 Dose: 150 mg
[2017-04-08] MEDS: Morphine 5 MG/ML SYRINGE SLOW IVP PRN (15:35)
[2017-04-08] MEDS ORDERED: Bisacodyl 10 MG SUPP PR SCH (18:15)
[2017-04-08] MEDS: traZODone HCl 150 MG TAB PO SCH (20:22)
[2017-04-08] MEDS: Rosuvastatin 10 MG TAB PO SCH (20:22)
[2017-04-08] MEDS: Docusate 100 MG CAP PO SCH (20:22)
[2017-04-09 06:04] LABS: #Eosinphils 0.2 thou/uL (0.0-0.7); #Lymphocytes 0.9 thou/uL (1.20-3.40); #Monocytes 0.9 thou/uL (0.11-0.59); #Neutrophils 8.7 thou/uL (1.40-6.50); %Basophils 0.2 % (0.0-1.0); %Eosinophils 1.6 % (0.0-10.0); %Lymphocytes 7.9 % (21.0-51.0); %Monocytes 8.7 % (0.0-10.0); %Neutrophils 81.6 % (42.0-75.0); Hemoglobin 7.9 g/dL (14.0-18.0); Mean Corpuscular HGB CONC 32.1 g/dL (32.0-36.0); Mean Corpuscular Hemoglobin 30.6 pg (27.0-31.0); Mean Corpuscular Volume 95.2 fl (80.0-94.0); Mean Platelet Volume 6.9 fL (7.4-10.4); Platelet Count 192 thou/uL (130-400); RBC Distribution Width 15.7 % (11.5-14.5); Red Blood Cell (RBC) Count 2.59 mill/uL (4.70-6.10); White Blood Cell (WBC) Count 10.7 thou/uL (4.8-10.8)
[2017-04-09] MEDS: Levothyroxine Sodium 75 MCG TAB PO SCH (07:17)
--- NOTE | 2017-04-09 07:59 | CT ---
PRELIMINARY REPORT/[facility]/EMERGENCY AFTER HOURS PROCEDURE: EXAM: CT Lumbar Spine Without Intravenous Contrast EXAM DATE/TIME: 04/09/2017 6:01 AM CLINICAL HISTORY: 76 years old, male; Injury or trauma; Fall; Initial encounter; Abrasion; Patient HX: Pt had a unwitne ssed fall. Pt C/O severe back pain. Pt was found on the floor. TECHNIQUE: Axial computed tomography images of the lumbar spine without intravenous contrast. Coronal and sagittal reformatted images were created and reviewed. COMPARISON: No relevant prior studies available. FINDINGS: Vertebrae: Subtle fracture at the right superior endplate of L1 without significant depression. Discs/spinal canal/neural foramina: No acute findings. No spinal canal stenosis. Soft tissues: Unremarkable. Vasculature: Vascular calcifications are present. Pleural space: Bilateral pleural effusions are partially imaged. IMPRESSION: Subtle fracture at the right superior endplate of L1 without significant depression. Remainder of fin dings as described above. Thank you for allowing us to participate in the care of your patient. Dictated and Authenticated by: Bere Jones MD 04/09/2017 6:43 AM Central Time ([place] & [place]) FINAL REPORT CT LUMBAR SPINE WITH CORONAL AND SAGITTAL REFORMATIONS: I agree with the preliminary report given by Dr. Bere Jones of [facility]. POS: [facility]
--- NOTE | 2017-04-09 08:01 | CT ---
PRELIMINARY REPORT/[facility]/EMERGENCY AFTER HOURS PROCEDURE: EXAM: CT Head Without Intravenous Contrast EXAM DATE/TIME: 04/09/2017 6:05 AM CLINICAL HISTORY: 76 years old, male; Injury or trauma; Fall; Initial encounter; Abrasion; Not specified; Patient HX: P t had a unwitnessed fall. Pt C/O severe back pain. Pt was found on the floor. TECHNIQUE: Axial computed tomography images of the head/brain without intravenous contrast. COMPARISON: No relevant prior studies available. FINDINGS: Brain: Prominent sulci. Patchy hypodensity of the cerebral white matter which are nonspecific but lik gaurang secondary to microangiopathic changes. Bilateral basal ganglia lacunes are present. No hemorrhage . Ventricles: The ventricles are prominent secondary to diffuse volume loss/atrophy. Bones/joints: Unremarkable. No acute fracture. Soft tissues: Unremarkable. Sinuses: Mild mucoperiosteal thickening of the paranasal sinuses. Mastoid air cells: Unremarkable as visualized. No mastoid effusion. IMPRESSION: Chronic age related changes but no evidence of acute intracranial pathology. Thank you for allowing us to participate in the care of your patient. Dictated and Authenticated by: Bere Jones MD 04/09/2017 6:36 AM Central Time ([place] & [place]) FINAL REPORT: CT BRAIN WITHOUT CONTRAST: I agree with the preliminary report given by Dr. Bere Jones of [facility]. POS: [facility]
[2017-04-09] MEDS: Modafinil 100 MG TAB PO SCH (08:42)
[2017-04-09] MEDS: Docusate 100 MG CAP PO SCH ×2 (08:42→21:01)
[2017-04-09] MEDS: Timolol 0.25% Ophth Soln 5 ml Bottle L EYE SCH ×2 (08:43→21:02)
[2017-04-09] MEDS: Morphine 5 MG/ML SYRINGE SLOW IVP PRN ×2 (08:45→15:54)
--- NOTE | 2017-04-09 10:05 | PDOC.PN ---
- Subjective Encounter Start Date: 04/09/17 Encounter Start Time: 09:45 Subjective: f/u for spontaneous RLE hematoma secondary to Eliquis. No new evidence -: expansion and no surgical intervention recommended. Apparently fell last -: pm with CT L-spine showing L1 fx without depression. - Objective Resuscitation Status: Resuscitation Status FULL:Full Resuscitation MAR Reviewed: Yes Vital Signs & Weight: Vital Signs (12 hours) Temp Pulse Resp BP BP Pulse Ox 04/09/17 09:19 97.9 F 77 12 103/73 95 04/09/17 05:25 97.6 F 72 18 154/81 H 100 04/09/17 04:00 97.6 F 70 20 137/77 100 04/09/17 00:00 98.3 F 79 20 145/87 H 96 Weight Weight 167 lb 5 oz I&O: 04/08/17 04/09/17 04/10/17 06:59 06:59 06:59 Intake Total 960 520 Output Total 325 Balance 635 520 Result Diagrams: 04/09/17 04:58 04/05/17 04:49 Additional Labs: Laboratory Tests 04/07/17 04/08/17 04:23 04:57 Hgb 7.9 L 8.1 L Radiology Reviewed by me: Yes (CT L-spine - L1 endplate fx, CT Brain - negative) Phys Exam - Physical Examination Constitutional: NAD HEENT: PERRLA, oral pharynx no lesions Neck: no JVD, supple Respiratory: no wheezing, clear to auscultation bilateral Cardiovascular: irregular Gastrointestinal: soft, non-tender, no distention, positive bowel sounds RLE with edema and ecchymosis to knee Musculoskeletal: pulses present, edema present Neurological: normal sensation, moves all 4 limbs Skin: normal turgor, cap refill <2 seconds Dx/Plan (1) Vertebral fracture, closed Status: Acute Qualifiers: Encounter type: initial encounter Lumbar vertebra fracture level: L1 Fracture morphology: unspecified fracture morphology Comment: post fall, supportive mgmt, consult Neurosurgery for likely TLSO application, PT for mobilization (2) Status post fall Code(s): Z91.81 - HISTORY OF FALLING Status: Acute Comment: PT for mobilization, fall risk prevention (3) Anemia, posthemorrhagic, acute Code(s): D62 - ACUTE POSTHEMORRHAGIC ANEMIA Status: Acute Comment: ? s/p 5u PRBC's (4) Hematoma Code(s): T14.8XXA - OTHER INJURY OF UNSPECIFIED BODY REGION, INITIAL ENCOUNTER Status: Acute Comment: Symptomatic mgmt, no surgical intervention (5) S/P TAVR (transcatheter aortic valve replacement) Code(s): Z95.2 - PRESENCE OF PROSTHETIC HEART VALVE Status: Chronic (6) History of atrial fibrillation Code(s): Z86.79 - PERSONAL HISTORY OF OTHER DISEASES OF THE CIRCULATORY SYSTEM Status: Chronic Comment: Chronic, rate controlled (7) Hypertension Code(s): I10 - ESSENTIAL (PRIMARY) HYPERTENSION Status: Chronic Qualifiers: Hypertension type: essential hypertension Qualified Code(s): I10 - Essential (primary) hypertension Comment: Stable - Plan plan discussed w/ family, PT/OT, social services manager, speech therapy, DVT proph w/ SCDs Stable overall -: Continue off Eliquis -: PT for functional assessment -: Consult Neurosurgery for L1 vertebral fx -: ? TLSO brace * Anticipate d/c in 48h
--- NOTE | 2017-04-09 14:22 | PRG ---
DATE OF SERVICE: 04/09/2017 This is a 30 minute initial patient evaluation in which greater than 50% of the exam spent in bereavement counselor ing and coordinating the patient's care. Remainder of the exam was reviewed in the patient's medical records and appropriate imaging studies. CHIEF COMPLAINT: Status post unwitnessed fall with L1 endplate compression fracture. HISTORY OF PRESENT ILLNESS: Mr. Marquis is a pleasant 76-year-old male who was admitted to the [facility] several days ago for right leg hematoma as he has a history of being on Plavix and possibly Eliqu is for cardiac reasons. The patient is blind and his neck band setter is at the bedside and he helps to pro vide some of the history for the patient. Apparently, the patient was admitted to the hospital and l ast night at some point in time had an unwitnessed fall with increase of low back pain. A head CT wa s obtained that showed no acute intracranial abnormality including negative for hemorrhage or fractur e. Review of the patient's lumbar spine CT shows he has a very small endplate compression fracture a t L1. He denies any weakness into the extremities, but does have significant pain due to the right l eg hematoma and moves this minimally. He does use a walker when he is at home. OBJECTIVE: GENERAL: The patient is awake, alert, and appropriate. He is oriented to person and date and unders tands that he is in the hospital. NEUROLOGIC: His GCS currently is 15. EXTREMITIES: He has full strength in the bilateral upper extremities with some perhaps trace weaknes s into the left upper extremity. He has good strength in the left lower extremity and he is able to wiggle the toes on the right, but due to his significant posterior thigh hematoma extending into the posterior aspect of the right calf, he minimally moves the right leg. He has full strength in dorsif lexion and plantar flexion on the right. There is significant swelling in his right lower extremity as well. He has no worrisome myelopathic features on exam including negative Schofield's bilaterally a nd no increased tone. IMPRESSION: Status post unwitnessed fall with anterior column fracture at L1. PLAN: I have discussed the patient's case and imaging with Dr. Jeff. At this time, we will plan t o brace the patient's fracture anytime he is out of bed. I have reassured about the patient and his caregiver that he does not require neurosurgical intervention at this time. We will schedule follow up for him in 6 weeks with upright lumbar spine x-rays, AP lateral view and his clam shell TLSO brace . I will order this brace. I would like him to be fitted for this before he has any additional out of bed activities. Please call with any questions or changes in the patient's neurologic status.
[2017-04-09] MEDS: traZODone HCl 150 MG TAB PO SCH (21:01)
[2017-04-09] MEDS: Rosuvastatin 10 MG TAB PO SCH (21:01)
[2017-04-09] MEDS: Acetaminophen 500 MG TAB PO PRN (21:04)
[2017-04-10] MEDS: Levothyroxine Sodium 75 MCG TAB PO SCH (05:24)
[2017-04-10] MEDS: Morphine 5 MG/ML SYRINGE SLOW IVP PRN ×2 (05:33→12:17)
[2017-04-10 08:38] VITALS: BP 131/76; TEMP 97.5
[2017-04-10] MEDS: Timolol 0.25% Ophth Soln 5 ml Bottle L EYE SCH (08:49)
[2017-04-10] MEDS: Modafinil 100 MG TAB PO SCH (08:49)
[2017-04-10] MEDS: Docusate 100 MG CAP PO SCH (08:49)
[2017-04-10] MEDS: Acetaminophen 500 MG TAB PO PRN ×2 (08:58→17:49)
--- NOTE | 2017-04-10 10:25 | PRG ---
DATE OF SERVICE: 04/10/2017 This is a 30 minute initial hospital visit note in which 30 minutes were spent in review of the imagi ng, record, evaluation and examination of the patient, and formulation of plan. Greater than 50% of time was spent in counseling on Hemant Marquis. CHIEF COMPLAINT: Mild superior endplate fracture L1. HISTORY OF PRESENT ILLNESS: I reviewed the notes of my colleague, Gonzalo Shoemaker PA-C, and agree wi th its content. Mr. Marquis is a 76-year-old man who had an unwitnessed fall, he sustained a very mi ld L1 endplate fracture. We have opted to brace this. PHYSICAL EXAMINATION: This morning on exam he does not open his eyes, but he follows commands briskl y in all 4 extremities. He appears to be in no acute distress. IMPRESSION AND PLAN: We will arrange followup. He is in a well-fitting TLSO clamshell brace. This only needs to be worn when he is out of bed. I anticipate bracing for 6 weeks. We will arrange foll owup again in our clinic. DIAGNOSIS: L1 fracture.
--- NOTE | 2017-04-10 14:13 | DIS ---
DATE OF ADMISSION: 04/04/2017 DATE OF DISCHARGE: 04/10/2017 DISCHARGE DIAGNOSES: 1. Right lower extremity hematoma secondarily to Plavix and Eliquis conservative management. 2. Acute blood loss anemia secondarily to #1 status post 5 units of packed red blood cells. 3. Status post mechanical fall. 4. Closed L1 vertebral fracture conservative management with TLSO bracing. 5. History of atrial fibrillation with previous anticoagulation with Eliquis. 6. Status post transcatheter aortic valve replacement. 7. Hypertension, stable. 8. Deconditioning. CONSULTATIONS: Dr. Bernard with General Surgery Service. Dr. Jeff with Neurosurgery Service. PERTINENT LAB AND X-RAY FINDINGS: Basic metabolic profile within normal limits. Serum iron level 43 , TIBC 278, ferritin 125, troponin I ranged between 0.119-0.136, BNP 301. CBC showed a white blood c ell count ranging between 10.7-13.9, hemoglobin ranged between 6.3-8.1. Portable chest x-ray dated 04/04/2017 showed cardiomegaly with left-sided pacemaker device in place. Pulmonary vascular prominence noted. CT of the lumbar spine dated 04/09/2017 showed subtle fracture at the right superior endplate of L1 without significant depression. Right lower extremity venous D oppler study dated 04/02/2017 showed no evidence for DVT. Two views of the right femur dated 018 showed no acute fracture or dislocation. CT of the brain dated 04/09/2017 showed no acute intrac ranial process. HOSPITAL COURSE: Patient was initially admitted to the telemetry unit after presenting with severe r ight lower extremity swelling and discoloration in the context of chronic Eliquis and Plavix therapy. The patient underwent extensive evaluation including ultrasound and plain radiographic imaging of t he right lower extremity showing no acute process. The patient was discontinued on Eliquis and Plavi x and evaluated by the General Surgery Service. No specific acute aggressive intervention was recomm ended other than discontinuation of anticoagulation and observant. No specific evidence of compartme nt syndrome was identified and patient continued to clinically improve with supportive measures. The patient did receive a total of 5 units of packed red blood cells after initial hemoglobin in the 6 r kj, stabilizing at a current level of approximately 8 by the time of discharge. Current recommenda tions are to continue off Eliquis indefinitely due to high fall risk and likely recurrent bleeding. The patient's hospital course was complicated by a mechanical fall sustaining a minor L1 endplate fra cture, conservatively managed at the direction of the neurosurgical service with TLSO bracing. Khalida nt recommendations are for bracing while ambulating x6 weeks with routine outpatient followup. Overa ll, the patient did remain clinically stable during the hospital course and ready for discharge on . DISCHARGE MEDICATIONS: 1. Zyrtec 10 mg one tablet p.o. daily. 2. Vitamin D3 at 1000 units p.o. daily. 3. Plavix 75 mg 1 tablet p.o. daily, may resume on 04/16/2017. 4. Levothyroxine 75 mcg 1 tablet p.o. daily. 5. Protonix 40 mg p.o. daily. 6. Crestor 10 mg p.o. daily. 7. Timolol 0.25% ophthalmic solution 1 drop to left eye b.i.d. 8. Trazodone 150 mg p.o. at bedtime. FOLLOWUP: The patient may follow up with Dr. Gutierrez in [place], [place] within 7 days. The patient may also follow up with Dr. Jonathan Jeff with Neurosurgical Service and to call his office for appointme nt time and date. CONDITION ON DISCHARGE: Fair. ACTIVITY: Ad emma. Rolling walker with contact guard assistance with high fall risk precautions, wea ring a TLSO brace when ambulating. DIET: Regular. CODE STATUS: FULL. DISPOSITION: Discharge home 04/10/2017. Total time preparing and coordinating discharge 33 minutes.
== END 2017-04-10 18:26 | disposition home or self-care (01) | DRG 556 ==
LOC: ERS 09:07 → 2NO 11:18 → T4-A 04-08 12:24
PROVIDERS: ADMIT Family Medicine; ATTEND Family Medicine
PROC: 30233N1 Transfusion of Nonautologous Red Blood Cells into Peripheral Vein, Percutaneous Approach (ICD-10-PCS; principal; 2017-04-04)
DX: M79.81 Nontraumatic hematoma of soft tissue (principal); I48.91 Unspecified atrial fibrillation; I24.8 Other forms of acute ischemic heart disease; D62 Acute posthemorrhagic anemia; I50.30 Unspecified diastolic (congestive) heart failure; I11.0 Hypertensive heart disease with heart failure; S32.019A Unspecified fracture of first lumbar vertebra, initial encounter for closed fracture; T45.515A Adverse effect of anticoagulants, initial encounter; T45.525A Adverse effect of antithrombotic drugs, initial encounter; Z86.73 Personal history of transient ischemic attack (TIA), and cerebral infarction without residual deficits; Z95.2 Presence of prosthetic heart valve; M81.0 Age-related osteoporosis without current pathological fracture; E78.5 Hyperlipidemia, unspecified; Z95.0 Presence of cardiac pacemaker; I25.10 Atherosclerotic heart disease of native coronary artery without angina pectoris; N40.0 Benign prostatic hyperplasia without lower urinary tract symptoms; W19.XXXA Unspecified fall, initial encounter; Z91.81 History of falling
CPT/HCPCS: 36415; 36430; 70450; 71045; 72131; 80048; 80053; 82553; 82728; 83540; 83550; 83880; 84484; 85007; 85014; 85018; 85025; 85027; 85049; 85610; 85730; 86850; 86900; 86901; 93005; 94760; J2270; A4216; G8978-GP-CM; G8978-GP-CN; G8979-GP-CJ; G8979-GP-CK; G8996-GN-CK; G8997-GN-CK; L0639; P9016

== ENCOUNTER 2019-07-16 15:54 | Inpatient (IN) | payer MEDICARE, OTHER ==
[2019-07-16 17:18] LABS: #Lymphocytes 0.8 thou/uL (1.20-3.40); #Monocytes 1.3 thou/uL (0.11-0.59); #Neutrophils 8.9 thou/uL (1.40-6.50); %Eosinophils 0.2 % (0.0-10.0); %Lymphocytes 7.1 % (21.0-51.0); %Monocytes 11.7 % (0.0-10.0); Hemoglobin 12.5 g/dL (14.0-18.0); Mean Corpuscular Hemoglobin 34.9 pg (27.0-31.0); Mean Platelet Volume 7.6 fL (7.4-10.4); Platelet Count 193 thou/uL (130-400); RBC Distribution Width 13.2 % (11.5-14.5); Red Blood Cell (RBC) Count 3.57 mill/uL (4.70-6.10)
[2019-07-16 17:38] LABS: MDiff Complete? YES; Macrocytosis SLIGHT = 6-15 cells (100X) (0-5/hpf); Platelet Morphology Comment Appears Adequate; Polychromasia SLIGHT = 2-3 cells (100X) (0-2/hpf)
[2019-07-16 17:48] LABS: ALT (SGPT) 12 U/L (8-55); AST (SGOT) 20 U/L (5-34); Albumin 3.9 g/dL (3.4-4.8); Alkaline Phosphatase 72 U/L (40-110); Anion Gap 15 mmol/L (10-20); BUN (Urea Nitrogen) 29 mg/dL (8.4-25.7); Bilirubin, Total 0.8 mg/dL (0.2-1.2); CK (CPK) 89 U/L (30-200); Calc. Creatinine Clearance 0 mL/min (70-130); Calcium 8.4 mg/dL (7.8-10.44); Carbon Dioxide 31 mmol/L (23-31); Chloride 99 mmol/L (98-107); Estimated GFR-MDRD 39; Globulin 3.7 g/dL (2.4-3.5); Glucose 118 mg/dL (83-110); Lipase 5 U/L (8-78); Magnesium 1.9 mg/dL (1.6-2.6); Protein, Total 7.6 g/dL (5.8-8.1); Sodium 142 mmol/L (136-145)
[2019-07-16 18:02] LABS: Potassium 2.6 mmol/L (3.5-5.1)
[2019-07-16] MEDS ORDERED: Potassium Chloride 40 MEQ in Sodium Chloride 0.9% 250 ML 250 ML IVPB SCH (19:15)
[2019-07-16 20:15] LABS: Bacteria/HPF 4+ HPF (None Seen); Bilirubin Negative (Negative); Blood, Urine 2+ (Negative); Clarity Turbid (Clear); Glucose, Urine (Dipstick) Normal (Negative); Leukocyte 500 Leu/uL (Negative); Mucous/LPF Rare LPF (<2+); Nitrite Negative (Negative); Protein, Urine (Dipstick) 30 mg/dL (Neg-Trace); Renal Epithelial 0-3 HPF (None Seen); Squamous Epithelial None Seen HPF (0-3); Urobilinogen Normal mg/dL (Less than 2); WBC/HPF Greater than 50 HPF (0-3)
[2019-07-16] MEDS ORDERED: Calcium Carbonate 500 MG ChewTAB PO PRN (20:15)
[2019-07-16] MEDS ORDERED: Acetaminophen 325 MG TAB PO PRN (20:15)
[2019-07-16] MEDS ORDERED: Acetaminophen 650 MG Suppository ONE (20:42)
[2019-07-16] MEDS ORDERED: Potassium Chloride 20 MEQ TAB PO SCH (21:00)
[2019-07-16 21:16] LABS: CKMB 0.8 ng/mL (0-6.6)
[2019-07-16] MEDS ORDERED: Heparin 5,000 UNITS/ML VIAL SC SCH (21:30)
--- NOTE | 2019-07-16 21:51 | HP ---
PRIMARY CARE PHYSICIAN: Dr. Knox with [facility]. CHIEF COMPLAINT: Diarrhea and generalized weakness. HISTORY OF PRESENT ILLNESS: The patient is an 79-year-old male with the past medical history significant for CHF with a pacemaker and CVA, who presents to the ER for the above complaint. The patient reports diarrhea for the past 2 weeks with associated generalized weakness. He reports 2 to 4 stools per day. He denies any mucus or blood in the stools. He denies any recent travel, antibiotic use, or hospitalization. He reports developing a fever today of 101 Fahrenheit. He has a caregiver at the half-way where he resides and she called the PCP today. Apparently, stool samples were sent off and are pending. The patient is not taking any medication for any of his symptoms at this time. The patient denies any chest pain, heart palpitations, or lower extremity swelling. The patient denies any recent cough, sore throat, or shortness of breath. The patient denies any abdominal pain, nausea, or vomiting. The patient denies any painful urination or discharge from the penis. In the ER, the vital signs were taken. The patient had a temperature of 100.1 Fahrenheit orally, blood pressure 101/55, heart rate 80, respirations 16, and he is 95% on room air. EKG was paced rhythm. He was found to have a potassium of 2.6, and he was given 40 mEq of IV piggyback. He was found to have a creatinine of 1.69 and BUN of 29. His WBCs were 11. UA later showed 4+ bacteria, 500 leukocyte estrace, and greater than 50 wbc's. The patient was given 1 L of normal saline and 40 mEq of potassium. PAST MEDICAL HISTORY: 1. CVA. No residual deficits. 2. CHF with pacemaker. 3. Hyperlipidemia. 4. Hypertension. 5. Osteoporosis. 6. Prostate cancer. PAST SURGICAL HISTORY: CABG x4, aortic valve replacement in 2017, and he has had a prostatectomy. SOCIAL HISTORY: The patient lives in a half-way in [place]. He ambulates with a walker. He denies any smoking, alcohol, or illicit drug use. ALLERGIES: 1. ASPIRIN. 2. CODEINE. 3. ERYTHROMYCIN. HOME MEDICATIONS: 1. Losartan 50 mg p.o. daily. 2. Torsemide 40 mg p.o. daily. 3. Plavix 75 mg p.o. daily. 4. Crestor 10 mg p.o. daily. 5. Levothyroxine 75 mcg p.o. q.a.m. 6. Protonix suspension packet 40mg p.o. daily. 7. Quetiapine 100 mg p.o. daily. 8. Zyrtec 10 mg p.o. daily. FAMILY HISTORY: Noncontributory to this case. REVIEW OF SYSTEMS: All review of systems are negative otherwise noted in the HPI. PHYSICAL EXAMINATION: VITAL SIGNS: Temperature of 100.1 Fahrenheit oral, blood pressure 101/55, heart rate 80, respirations 16, and the patient's SpO2 was 95% on room air. LABORATORY DATA: Chemistry; sodium 142, potassium 2.6, chloride of 99, carbon dioxide of 31, BUN 29, creatinine 1.69, GFR of 39, glucose 118, lactic acid was 1.4, magnesium 1.9. Bilirubin 0.8, AST 20, ALT 12, alkaline phosphatase 72, and lipase was 5. CBC; WBC 11, hemoglobin 12.5, hematocrit 37.7, and platelets 193. Urine 's clarity was turbid, leucocyte estrace 500, wbc's greater than 50, and bacteria 4 +. IMPRESSION AND PLAN: 1. Diarrhea. Admit the patient to telemetry floor for inpatient status. Expected length of stay greater than 2 midnights. Low-grade temperature with stable vital signs. Per report, stool samples were sent from PCP's office today. Diarrhea of unknown source. The patient received 1 L of IV fluids in the ER. We will continue gentle IV hydration given the patient's history of heart failure. We will place on contact precautions. We will order stool studies and will replace electrolytes. Given the patient is a half-way patient and given his symptoms and presentation COVID test is pending and will place on droplet precautions. 2. Hypokalemia. The patient presented with a potassium level of 2.6, received 40 mEq IV piggyback in the ER. We will give 40 mEq oral and will recheck in the a.m. 3. Acute kidney injury. The patient has a BUN of 29 and a creatinine of 1.69. Baseline appears to be below 1. Likely secondary to prerenal volume dehydration , GoLYTELY IV hydrate and we will recheck labs in the a.m. 4. Urinary tract infection. The patient's UA is indicative of urinary tract infection, 4+ bacteria, greater than 50 wbc's, and 500 leukocyte esterase. We will start Rocephin, IV piggyback daily. We will send urine for culture. 5. Elevated troponins. Trop 0.217, previous readings > 0.1. Patient asymptomatic , EKG paced rhythm. Will trend troponins, continue cardiac monitoring. 6. Congestive heart failure. The patient has a history of heart failure with the pacemaker in place. We will check a troponin level and a BNP. We will perform gentle IV hydration. 7. Consult physical therapy. SCDs for deep venous thrombosis prophylaxis. Pepcid for gastrointestinal prophylaxis. The patient is a full code. Durable power of family law attorney is his son, Jonathan Townsend, and his number is [phone]. Discussed case with Dr. Vogel. Job ID: [id number] MTDD
[2019-07-16 22:58] VITALS: BMI 21.3
[2019-07-16] MEDS: Sodium Chloride 0.9% 1,000 ML IV SCH (23:15)
[2019-07-16] MEDS: Famotidine 20 MG TAB PO SCH (23:30)
[2019-07-16] MEDS: Famotidine/PF 20 mg/2ml Vial SLOW IVP SCH (23:36)
[2019-07-16] MEDS: cefTRIAXone\\ROCEPHIN 2 GM in Sodium Chloride 0.9% 100 ML IVPB SCH (23:36)
[2019-07-17 00:02] LABS: Troponin I 0.236 ng/mL (< 0.028)
[2019-07-17] MEDS: cefTRIAXone\\ROCEPHIN 2 GM in Sodium Chloride 0.9% 100 ML IVPB SCH ×2 (02:01→22:18)
[2019-07-17 02:13] LABS: Troponin I 0.222 ng/mL (< 0.028)
[2019-07-17 06:29] LABS: #Lymphocytes 0.9 thou/uL (1.20-3.40); #Monocytes 1.5 thou/uL (0.11-0.59); #Neutrophils 10.5 thou/uL (1.40-6.50); %Basophils 0.2 % (0.0-1.0); %Eosinophils 0.1 % (0.0-10.0); %Monocytes 11.2 % (0.0-10.0); %Neutrophils 81.5 % (42.0-75.0); Hemoglobin 12.6 g/dL (14.0-18.0); Mean Corpuscular HGB CONC 33.3 g/dL (32.0-36.0); Mean Corpuscular Hemoglobin 35.1 pg (27.0-31.0); Mean Platelet Volume 7.6 fL (7.4-10.4); Platelet Count 183 thou/uL (130-400); Red Blood Cell (RBC) Count 3.59 mill/uL (4.70-6.10); White Blood Cell (WBC) Count 12.9 thou/uL (4.8-10.8)
[2019-07-17 06:53] LABS: Anion Gap 15 mmol/L (10-20); BUN (Urea Nitrogen) 30 mg/dL (8.4-25.7); Calc. Creatinine Clearance 40 mL/min (70-130); Calcium 8.3 mg/dL (7.8-10.44); Carbon Dioxide 29 mmol/L (23-31); Chloride 104 mmol/L (98-107); Estimated GFR-MDRD 45; Glucose 105 mg/dL (83-110); Potassium 3.1 mmol/L (3.5-5.1); Sodium 145 mmol/L (136-145)
[2019-07-17] MEDS ORDERED: Heparin 5,000 UNITS/ML VIAL SC SCH (09:00)
[2019-07-17] MEDS: Sodium Chloride 0.9% 1,000 ML IV SCH (12:49)
[2019-07-17] MEDS ORDERED: Clopidogrel Bisulfate 75 MG TAB PO SCH (14:30)
--- NOTE | 2019-07-17 15:07 | PDOC.HOSPP ---
- Subjective Subjective: Seen and examined. Alert and oriented. Breathing well on room air. Patient's only complaint/request is that he can have as much "Atlas as he wants". Recommended with history of CHF caution for volume overload. COVID rule out pending. Diarrhea on and off for about a month per patient. - Objective Vital Signs & Weight: Vital Signs (12 hours) Temp Pulse Resp BP Pulse Ox 07/17/19 11:40 99.0 F 72 16 128/101 H 95 07/17/19 08:55 97.1 F L 71 22 H 128/60 95 07/17/19 03:25 98.5 F 77 20 127/59 L 98 Weight Admit Weight 157 lb Weight 157 lb 6.4 oz I&O: 07/16/19 07/17/19 07/18/19 06:59 06:59 06:59 Intake Total 820 600 Output Total 50 Balance 770 600 Result Diagrams: 07/17/19 05:44 07/17/19 05:44 Radiology Reviewed by me: Yes Hospitalist ROS - Review of Systems All other systems reviewed; all pertinent +/- noted in HPI/Subj - Medication Medications: Active Medications Generic Name Dose Route Start Last Admin Trade Name Freq PRN Reason Stop Dose Admin Famotidine 20 mg 07/16/19 21:00 07/16/19 23:36 Pepcid SLOW IVP Not Given QPM STACEY Famotidine 20 mg 07/16/19 21:00 07/16/19 23:30 Pepcid PO 20 mg QPM STACEY Administration Sodium Chloride 1,000 mls @ 50 mls/hr 07/16/19 20:15 07/17/19 12:49 Normal Saline 0.9% IV 1,000 mls .Q20H STACEY Administration Ceftriaxone Sodium 2 gm/ 100 mls @ 200 mls/hr 07/16/19 21:00 07/17/19 02:01 Sodium Chloride IVPB 100 mls Q24HR STACEY Administration - Exam General Appearance: NAD, awake alert Eye: PERRL ENT: normocephalic atraumatic, moist mucosa Neck: supple, symmetric, no lymphadenopathy Heart: no murmur, no gallops, no rubs, irregular Respiratory: CTAB, no wheezes, no rales, no ronchi, normal chest expansion, no tachypnea Gastrointestinal: soft, non-tender, non-distended, normal bowel sounds, no guarding, no rigidity Extremities: no edema Skin: no lesions, no rashes Neurological: cranial nerve grossly intact, no focal deficits Musculoskeletal: generalized weakness Psychiatric: A&O x 3, flat affect (hard of hearing) Hosp A/P (1) AMILCAR (acute kidney injury) Code(s): N17.9 - ACUTE KIDNEY FAILURE, UNSPECIFIED Status: Acute (2) UTI (urinary tract infection) Status: Acute (3) COVID-19 ruled out Code(s): Z03.818 - ENCNTR FOR OBS FOR SUSP EXPSR TO OT BIOLG AGENTS RULED OUT Status: Acute (4) Diarrhea Code(s): R19.7 - DIARRHEA, UNSPECIFIED Status: Acute (5) Chronic heart failure Code(s): I50.9 - HEART FAILURE, UNSPECIFIED Status: Acute Qualifiers: Heart failure type: unspecified heart failure type Qualified Code(s): I50.9 - Heart failure, unspecified (6) Vertebral fracture, closed Status: Acute Qualifiers: Encounter type: initial encounter Lumbar vertebra fracture level: L1 Fracture morphology: unspecified fracture morphology (7) 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, 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 * Status: Chronic (8) History of atrial fibrillation Code(s): Z86.79 - PERSONAL HISTORY OF OTHER DISEASES OF THE CIRCULATORY SYSTEM Status: Chronic (9) Hypertension Code(s): I10 - ESSENTIAL (PRIMARY) HYPERTENSION Status: Chronic Qualifiers: Hypertension type: essential hypertension Qualified Code(s): I10 - Essential (primary) hypertension (10) Hypothyroid Code(s): E03.9 - HYPOTHYROIDISM, UNSPECIFIED Status: Chronic (11) S/P TAVR (transcatheter aortic valve replacement) Code(s): Z95.2 - PRESENCE OF PROSTHETIC HEART VALVE Status: Chronic - Plan Plan: medical unit with telemetry Covid rule out pending AMILCAR, on gentle IV fluids IV ABX for UTI on and off diarrhea for one month. No abdominal pain. No antibiotic usage. Stool studies pending Continue home medications as able blood pressure control blood sugar control G.I. prophylaxis DVT prophylaxis
[2019-07-17 17:39] LABS: SARS-CoV-2 MS2 Positive; SARS-CoV-2 N Gene Negative; SARS-CoV-2 S Gene Negative; SARS-CoV-2 orf1ab Negative
[2019-07-17] MEDS: Famotidine/PF 20 mg/2ml Vial SLOW IVP SCH (20:49)
[2019-07-17] MEDS: Rosuvastatin 10 MG TAB PO SCH (20:49)
[2019-07-17] MEDS: Calcium Carbonate 600 MG + Vit D TAB PO SCH (20:49)
[2019-07-17] MEDS: Famotidine 20 MG TAB PO SCH (20:49)
[2019-07-17] MEDS: Timolol 0.25% Ophth Soln 5 ml Bottle L EYE SCH (22:18)
[2019-07-18] MEDS ORDERED: Furosemide 20 MG/2 ML VIAL SLOW IVP SCH (09:30)
[2019-07-18] MEDS: Timolol 0.25% Ophth Soln 5 ml Bottle L EYE SCH ×2 (09:53→21:10)
[2019-07-18] MEDS: Clopidogrel Bisulfate 75 MG TAB PO SCH (09:56)
[2019-07-18] MEDS: Levothyroxine Sodium 25 MCG TAB PO SCH (09:56)
[2019-07-18] MEDS: Loratadine 10 MG TAB PO SCH (09:56)
[2019-07-18] MEDS: Multivitamin W/ Minerals 1 TAB PO SCH (09:57)
[2019-07-18] MEDS: Losartan 25 MG TAB PO SCH (09:57)
[2019-07-18 11:43] LABS: Anion Gap 14 mmol/L (10-20); BUN (Urea Nitrogen) 23 mg/dL (8.4-25.7); Calc. Creatinine Clearance 50 mL/min (70-130); Calcium 8.1 mg/dL (7.8-10.44); Carbon Dioxide 25 mmol/L (23-31); Chloride 111 mmol/L (98-107); Estimated GFR-MDRD 59; Glucose 155 mg/dL (83-110); Sodium 147 mmol/L (136-145)
[2019-07-18 11:56] LABS: Potassium 2.6 mmol/L (3.5-5.1)
--- NOTE | 2019-07-18 12:30 | PDOC.HOSPP ---
- Subjective Subjective: Patient clinically improved. More alert and awake, sitting up in the bed straight and eating his breakfast. Denies pain, no chest pain. Mild shortness of breath. Patient's COVID has come back negative. Acute kidney injury has resolved with IV fluids, now he does appear to be on the wet side. I have D/c the IV fluids, started IV diuretics, will order echocardiogram and ask for cardiology input. Elevated cardiac enzymes. - Objective Vital Signs & Weight: Vital Signs (12 hours) Temp Pulse Resp BP Pulse Ox 07/18/19 11:55 98.5 F 80 16 120/74 98 07/18/19 07:49 98.1 F 79 18 133/67 94 L 07/18/19 07:20 94 L 07/18/19 04:00 97.7 F 69 16 118/63 958 H Weight Admit Weight 157 lb Weight 157 lb 6.4 oz I&O: 07/17/19 07/18/19 07/19/19 06:59 06:59 06:59 Intake Total 820 1690 300 Output Total 50 Balance 770 1690 300 Result Diagrams: 07/17/19 05:44 07/18/19 11:03 Radiology Reviewed by me: Yes Hospitalist ROS - Review of Systems All other systems reviewed; all pertinent +/- noted in HPI/Subj - Medication Medications: Active Medications Generic Name Dose Route Start Last Admin Trade Name Freq PRN Reason Stop Dose Admin Calcium/Vitamin D 1 tab 07/17/19 21:00 07/17/19 20:49 Caltrate 600 + Vit D PO 1 tab HS STACEY Administration Clopidogrel Bisulfate 75 mg 07/18/19 09:00 07/18/19 09:56 Plavix PO 75 mg DAILY STACEY Administration Famotidine 20 mg 07/16/19 21:00 07/17/19 20:49 Pepcid SLOW IVP 20 mg QPM STACEY Administration Famotidine 20 mg 07/16/19 21:00 07/17/19 20:49 Pepcid PO 20 mg QPM STACEY Administration Ceftriaxone Sodium 2 gm/ 100 mls @ 200 mls/hr 07/16/19 21:00 07/17/19 22:18 Sodium Chloride IVPB 100 mls Q24HR STACEY Administration Iron/Minerals/Multivitamins 1 tab 07/18/19 09:00 07/18/19 09:57 Theragran M PO 1 tab DAILY STACEY Administration Levothyroxine Sodium 75 mcg 07/18/19 09:00 07/18/19 09:56 Synthroid PO 75 mcg DAILY STACEY Administration Loratadine 10 mg 07/18/19 09:00 07/18/19 09:56 Claritin PO 10 mg DAILY STACEY Administration Losartan Potassium 50 mg 07/18/19 09:00 07/18/19 09:57 Cozaar PO 50 mg DAILY STACEY Administration Pantoprazole Sodium 40 mg 07/18/19 09:00 07/18/19 09:57 Protonix PO 40 mg DAILY STACEY Administration Quetiapine Fumarate 100 mg 07/17/19 21:00 07/17/19 20:50 Seroquel PO 100 mg HS STACEY Administration Rosuvastatin Calcium 10 mg 07/17/19 21:00 07/17/19 20:49 Crestor PO 10 mg HS STACEY Administration Timolol Maleate 1 drop 07/17/19 21:00 07/18/19 09:53 Timoptic 0.25% Ophth Soln L EYE 1 drop BID STACEY Administration - Exam General Appearance: NAD, awake alert Eye: PERRL ENT: normocephalic atraumatic, moist mucosa Neck: supple, symmetric, no JVD, no thyromegaly Heart: no gallops, no rubs, normal peripheral pulses, murmur present Respiratory: no wheezes, no ronchi, no tachypnea, rales (faint) Gastrointestinal: soft, non-tender, no guarding, no rigidity Extremities: 1+ LE edema Skin: no lesions, no rashes Neurological: cranial nerve grossly intact, no focal deficits Neurological - other findings: visual and auditory impairment at baseline Musculoskeletal: generalized weakness Psychiatric: A&O x 3 Hosp A/P (1) AMILCAR (acute kidney injury) Code(s): N17.9 - ACUTE KIDNEY FAILURE, UNSPECIFIED Status: Acute (2) UTI (urinary tract infection) Status: Acute (3) COVID-19 ruled out Code(s): Z03.818 - ENCNTR FOR OBS FOR SUSP EXPSR TO OTH BIOLG AGENTS RULED OUT Status: Resolved (4) Diarrhea Code(s): R19.7 - DIARRHEA, UNSPECIFIED Status: Chronic (5) Chronic heart failure Code(s): I50.9 - HEART FAILURE, UNSPECIFIED Status: Acute Qualifiers: Heart failure type: unspecified heart failure type Qualified Code(s): I50.9 - Heart failure, unspecified (6) Vertebral fracture, closed Status: Acute Qualifiers: Encounter type: initial encounter Lumbar vertebra fracture level: L1 Fracture morphology: unspecified fracture morphology (7) 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, 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 * Status: Chronic (8) History of atrial fibrillation Code(s): Z86.79 - PERSONAL HISTORY OF OTHER DISEASES OF THE CIRCULATORY SYSTEM Status: Chronic (9) Hypertension Code(s): I10 - ESSENTIAL (PRIMARY) HYPERTENSION Status: Chronic Qualifiers: Hypertension type: essential hypertension Qualified Code(s): I10 - Essential (primary) hypertension (10) Hypothyroid Code(s): E03.9 - HYPOTHYROIDISM, UNSPECIFIED Status: Chronic (11) S/P TAVR (transcatheter aortic valve replacement) Code(s): Z95.2 - PRESENCE OF PROSTHETIC HEART VALVE Status: Chronic - Plan Plan: medical unit with telemetry Cardiology consultation, recommendations appreciated Add echocardiogram to quantify CHF Add IV lasix Appears on the volume overloaded side with gentle IV fluids for AMILCAR Will stop IV fluids Oral fluid restrictions Elevated troponin and BNP Hx TAVR Covid ruled AMILCAR resolved IV ABX for UTI, can transition to oral on D/c on and off diarrhea for one month. No abdominal pain. No antibiotic usage prior to admission, negative c.diff Negative diarrhea work up thus far Continue home medications as able blood pressure control blood sugar control G.I. prophylaxis DVT prophylaxis
[2019-07-18] MEDS: Rosuvastatin 10 MG TAB PO SCH (21:09)
[2019-07-18] MEDS: Calcium Carbonate 600 MG + Vit D TAB PO SCH (21:09)
[2019-07-18] MEDS: cefTRIAXone\\ROCEPHIN 2 GM in Sodium Chloride 0.9% 100 ML IVPB SCH (21:10)
[2019-07-18] MEDS: Famotidine 20 MG TAB PO SCH (21:10)
[2019-07-18] MEDS: Famotidine/PF 20 mg/2ml Vial SLOW IVP SCH (21:11)
--- NOTE | 2019-07-19 02:24 | CON ---
DATE OF CONSULTATION: 07/18/2019 INDICATION FOR CONSULTATION: This is an elderly gentleman, 79 years old, who has multiple medical problems in the past with extensive cardiac history, who presented to the hospital having diarrhea with what appeared to be dehydration. He was given IV fluids and then now appeared to be having somewhat more congestive heart failure symptoms. He recently was seen in the office by Dr. Mast on the 27 of June. He does have a history of congestive heart failure. He has had pacemaker insertion. He has had a TAVR insertion due to severe aortic valve stenosis. He has also had a Watchman device placed. He has a history of atrial fibrillation. He has had TIAs. He has hypertension. He has had a posterior myocardial infarction. He has a history of SVT in the past and has a history of ischemic cardiomyopathy, but last ejection fraction by echocardiogram showed the ejection fraction was around, I believe, it was in the 50% range and I believe the repeat echocardiogram has been scheduled. Recently, he had been at home where he resides and was noted to have elevated temperature and significant diarrhea. He presented to the hospital, was admitted and was started on IV fluids as well as antibiotics. He also was hyponatremic. The potassium has been replaced. He was given the IV fluids and was found also to have urinary tract infection. After being given the volume, it appears that he became volume overloaded, has some crackles and also was complaining of some mild shortness of breath. When I am seeing him now, he did not have any further shortness of breath. He appears to be relatively comfortable and it seems that the diarrhea has decreased, but is not completely resolved. He has been started on IV Lasix. I would agree with this at this time to manage some of the volume overload due to his cardiomyopathy, though he most likely has diastolic dysfunction. He did have the TAVR placed in 2016 and by echocardiogram in June of 2018, he had a very small perivalvular leak. He denies any chest pain. His cardiac enzymes were slightly elevated, but would be considered most likely indeterminate given his congestive heart failure. His troponin I was 0.21, increased up to 0.236 and then decreased again down to 0.22. His MB was 0.8. His BNP was slightly elevated or mildly elevated at 367. Today, his potassium was 2.6 and this is being replaced. His blood sugar was 155, but early was 105. His BUN was 23 with a creatinine of 1.18 today and on admission, his BUN was 29 with creatinine of 1.69. I have reviewed his medications and would agree with the Lasix at this time. He has had some difficulty apparently from review of the records from the office with his blood pressures being a little bit too high and too low and sometimes being on the dry side. We will need to continue to manage these medications in order to prevent further congestive heart failure. Further recommendations will depend also on the results of the echocardiogram, which is still pending. PAST MEDICAL HISTORY: Please refer to the notes dictated by my nurse practitioner. SOCIAL HISTORY: Please refer to the notes dictated by my nurse practitioner. FAMILY HISTORY: Please refer to the notes dictated by my nurse practitioner. REVIEW OF SYSTEMS: Please refer to the notes dictated by my nurse practitioner. ALLERGIES: PLEASE REFER TO THE NOTES DICTATED BY MY NURSE PRACTITIONER. MEDICATIONS: Please refer to the notes dictated by my nurse practitioner. PHYSICAL EXAMINATION: Please refer to the notes dictated by my nurse practitioner. We have discussed this patient in detail and I would agree with the present plan and assessment. Further care of the patient will be by Dr. Mast when he visits with the patient tomorrow. Job ID: [id number]
[2019-07-19 05:07] LABS: Anion Gap 12 mmol/L (10-20); BUN (Urea Nitrogen) 21 mg/dL (8.4-25.7); Calc. Creatinine Clearance 58 mL/min (70-130); Calcium 7.4 mg/dL (7.8-10.44); Carbon Dioxide 24 mmol/L (23-31); Chloride 109 mmol/L (98-107); Estimated GFR-MDRD 70; Glucose 94 mg/dL (83-110); Sodium 142 mmol/L (136-145)
[2019-07-19 05:12] LABS: Potassium 2.7 mmol/L (3.5-5.1)
[2019-07-19] MEDS ORDERED: Potassium Chloride 20 MEQ TAB PO SCH ×3 (06:30→13:00)
[2019-07-19] MEDS ORDERED: Potassium Chloride 20 MEQ in Premix Bag 1 BAG IVPB SCH (06:30)
--- NOTE | 2019-07-19 06:50 | CON ---
DATE OF CONSULTATION: PRIMARY CARE DOCTOR: Dr. Kennedy Sotelo. PRIMARY GOLD BUYER: Robert Mast MD. REASON FOR CARDIOLOGY CONSULT: History of congestive heart failure. HISTORY OF PRESENT ILLNESS: Mr. Marquis is a very present 79-year-old male with significant history of coronary artery disease with status post CABG, paroxysmal atrial fibrillation with Watchman device placement in March 2019, severe aortic valve stenosis with status post TAVR in 2017, chronic systolic heart failure, pacemaker placement, hypertension, hyperlipidemia, and previous CVA. The patient followed up with Dr. Mast's nurse practitioner, Subha on June 28, 2019 , at that time, the patient mentioned that the patient did not have any cardiac complaints, shortness of breath, swelling in the lower extremities. The patient was recommend to follow up with Dr. Mast's office in 4 months. Then after the followup, the patient started having diarrhea at least 4-5 times a day especially after he eats or drinks for several weeks and the patient started feeling very weak. Due to those reasons, the patient followed up with his primary care doctor. The patient's Clostridium difficile was sent out at that time and the patient was transferred to the emergency department for the hypokalemia. The patient denied any shortness of breath, dizziness, lightheadedness, chest pain, discomfort, any other cardiac complaints during the episode at the group home or during this hospital stay. The patient denied any abdomen bloating either. The patient's last echocardiogram was done in June [address] Mast's office with EF of 50% to 55%, moderate left ventricular dilation, severe left atrium enlargement, mild to moderate mitral valve regurgitation, the patient with normal function of bioprosthetic aortic valve with mild aortic valve insufficiency, moderate tricuspid regurgitation, moderately elevated right ventricular systolic pressure of 42 mmHg. The patient had a carotid Doppler study in 2016 with no significant stenosis. The patient underwent a CABG x5 in December 1999 and pacemaker placement in 2009. PAST MEDICAL HISTORY: According to Dr. Mast's office note; 1. The patient had a history of chronic systolic heart failure; however, the patient's medical record has been showing the patient has a chronic diastolic heart failure. 2. Hypertension. 3. Hypothyroidism. 4. Coronary artery disease. 5. Anxiety. 6. BPH. 7. Status post pacemaker placement. 8. GERD. 9. Hyperlipidemia. 10. Irritable bowel syndrome. 11. History of prostate cancer. 12. History of renal artery stenosis. 13. History of sick sinus syndrome with a pacemaker placement. 14. The patient had a history of previous CVA, ischemic cardiomyopathy, and TIA in 1996. 15. Blindness. PAST SURGICAL HISTORY: 1. Coronary artery bypass graft surgery in 1999. 2. Pacemaker placement secondary to sick sinus syndrome in 1999. 3. Prostatectomy. 4. Right shoulder reconstruction. 5. Right inguinal hernia repair x2. 6. Right knee arthroscopy. ALLERGIES: THE PATIENT IS ALLERGIC TO ASPIRIN, CAFFEINE, CODEINE, AND ERYTHROMYCIN. HOME MEDICATIONS: 1. Timolol one drop left eye twice a day. 2. Protonix 40 mg once a day. 3. Levothyroxine 75 mcg once a day. 4. Zyrtec 10 mg once a day. 5. Lovastatin 10 mg once a day. 6. Plavix 75 mg once a day. 7. Calcium phosphate with vitamin D3 one tablet once a day. 8. Seroquel 100 mg once a day. 9. Losartan 50 mg once a day. 10. Multivitamin once a day. 11. Torsemide 40 mg once a day. FAMILY HISTORY: The patient's father had a medical history of congestive heart failure and myocardial infarction at the age of 80s. SOCIAL HISTORY: He is currently a resident in a snf near [place], [place]. The patient denied any EtOH, tobacco, and illicit drug abuse. REVIEW OF SYSTEMS: 12-point review of systems negative unless otherwise mentioned. PHYSICAL EXAMINATION: VITAL SIGNS: Blood pressure 134/78, temperature 98.1, pulse is 75, it is V paced, respiratory rate 17, O2 saturation 96% with room air. GENERAL: The patient is alert and oriented x4, not in acute distress, where the patient is blind. HEAD: Normocephalic, atraumatic. EYES: Extraocular muscle movement intact. ENT: Mouth, oral and nasal mucosa moist without lesions. NECK: Supple. Normal range of motion. No JVD. RESPIRATORY: Clear to auscultation bilaterally, but diminished at the bases. No wheezing, rales, or rhonchi noted. CARDIOVASCULAR: Regular rate and rhythm. Normal S1, normal S1, S2. There is no S3, S4. There is a significant murmur in mitral valve area and mild murmur at the left than the right mediastinal border. 2+ pulses in bilateral lower extremities. No edema in the lower extremities. ABDOMEN: Soft, but mild tenderness to palpated in the stomach. Bowel sounds are present. SKIN: Warm and dry. No lesion, no rash or erythema noted. MUSCULOSKELETAL: The patient able to turn himself. The patient denied claudication. NEUROLOGIC: The patient is alert and oriented x4, nonfocal. PSYCHIATRIC: The patient's mood is appropriate. LABORATORY DATA: WBC 12.9, hemoglobin 12.6, hematocrit 37.8, platelet 183. Sodium 147, potassium 2.6, BUN 23, creatinine 1.18. Lactic acid 1.4, calcium 8.1, magnesium 1.9, AST 20, ALT 12, CK-MB 0.8, troponin 0.217, 0.236, and 0.222. UA, positive UTI. ASSESSMENT AND PLAN: 1. Chronic diarrhea, which the patient keeps having diarrhea almost 2 or 3 times a day per patient. The patient's potassium has been low again, the patient might need a GI consult for further GI evaluation and chronic diarrhea. 2. Hypokalemia, which is managed by primary care doctor. 3. Urinary tract infection. The patient has been on antibiotic, which is managed by primary care doctor. 4. Chronic diastolic heart failure, which has been stable at this moment. The patient has been on Lasix IV push twice a day. The patient has been on torsemide at home and the patient is not on the beta marti. I would like to defer to Dr. Mast's who is going to follow up with this patient from tomorrow. However, at this moment, the patient's blood pressure has been stable. The patient is on losartan 50 mg once a day. 5. Coronary artery disease with a history of coronary artery bypass graft in 1999, which the patient is asymptomatic at this moment. The patient's telemetry is not showing any ST-segment change or T-wave inversion. The patient has been on Plavix 75 mg once a day. The patient is allergic to aspirin. Again, I cannot find the reason on his charts, but the patient is not the beta marti. I would like to defer to Dr. Mast. 6. History of sick sinus syndrome with status post a pacemaker placement in 2009. 7. Paroxysmal atrial fibrillation with status post Watchman device placement in March 2019. He has been on Plavix 75 mg once a day. 8. History of severe aortic valve stenosis with status post transcatheter aortic valve replacement in 2017. Echo in 2019 shows a normal function of bioprosthetic valve aortic valve. The patient is going to have another echo during this admission. 9. Hyperlipidemia. The patient has been on lovastatin at this moment. 10. Hypothyroidism. The patient is on the levothyroxine, which is managed by primary care doctor. Thank you very much for Cardiology consult request to participate in the care of this patient. We will follow along with the patient's care team and make further recommendations as appropriate. Job ID: [id number] MTDD
[2019-07-19] MEDS ORDERED: Furosemide 20 MG/2 ML VIAL SLOW IVP SCH (09:00)
[2019-07-19] MEDS: Levothyroxine Sodium 25 MCG TAB PO SCH (09:28)
[2019-07-19] MEDS: Losartan 25 MG TAB PO SCH (09:28)
[2019-07-19] MEDS: Loratadine 10 MG TAB PO SCH (09:29)
[2019-07-19] MEDS: Multivitamin W/ Minerals 1 TAB PO SCH (09:29)
[2019-07-19] MEDS: Timolol 0.25% Ophth Soln 5 ml Bottle L EYE SCH ×2 (09:29→21:21)
[2019-07-19] MEDS: Clopidogrel Bisulfate 75 MG TAB PO SCH (09:29)
--- NOTE | 2019-07-19 10:14 | PRG ---
DATE OF SERVICE: 07/19/2019 SUBJECTIVE: Mr. Marquis continues to feel weak. He is not having chest pain. He is not short of breath. OBJECTIVE: VITAL SIGNS: Blood pressure 137/74 and pulse 76 and regular. LUNGS: Clear. CARDIAC: There is a 3/6 holosystolic murmur of mitral regurgitation. ABDOMEN: Soft and nontender. EXTREMITIES: No edema. PERTINENT LABORATORY DATA: Potassium is still very low at 2.7 despite on potassium. Echocardiogram showed ejection fraction 50% to 55%, normal transcutaneous aortic valve replacement, moderate mitral regurgitation. ASSESSMENT: 1. Congestive heart failure, diastolic, appears stable, not volume overloaded. 2. Remains hypokalemic. PLAN: 1. Continue with potassium repletion. 2. Off Lasix. Does not appear volume overloaded, looks volume depleted. Job ID: [id number]
--- NOTE | 2019-07-19 10:50 | RAD ---
CHEST 1 VIEW: INDICATION: History of shortness of breath. COMPARISON: Prior exam dated 08/08/2012. FINDINGS: Prominent cardiomegaly and pulmonary vasculature is present consistent with changes of some cardiac d ecompensation. No pulmonary edema, pleural effusion, or pneumothorax is evident. There is a right t otal shoulder replacement. There is a multilead pacemaker overlying the left chest wall. No acute o sseous abnormality is evident. There is an aortic valvular prosthesis overlying the midline of the t horax. IMPRESSION: Moderate cardiomegaly with mild pulmonary vascular congestion. POS: [facility]
--- NOTE | 2019-07-19 13:58 | PDOC.HOSPP ---
- Subjective Encounter Date: 07/19/19 Encounter Time: 10:00 Subjective: no sob or abd pain is being fed breakfast now still has watery diarrhea around 5 in the last 24hrs per RN no nausea or black stools - Objective Vital Signs & Weight: Vital Signs (12 hours) Temp Pulse Resp BP Pulse Ox 07/19/19 12:00 97.6 F 70 16 107/67 96 07/19/19 08:00 98.2 F 76 15 137/74 95 07/19/19 04:00 98.2 F 80 18 116/63 96 Weight Admit Weight 157 lb Weight 157 lb 6.4 oz I&O: 07/18/19 07/19/19 07/20/19 06:59 06:59 06:59 Intake Total 1690 900 551 Output Total 200 Balance 1690 700 551 Result Diagrams: 07/17/19 05:44 07/19/19 04:30 Hospitalist ROS - Medication Medications: Active Medications Generic Name Dose Route Start Last Admin Trade Name Freq PRN Reason Stop Dose Admin Calcium/Vitamin D 1 tab 07/17/19 21:00 07/18/19 21:09 Caltrate 600 + Vit D PO 1 tab HS STACEY Administration Clopidogrel Bisulfate 75 mg 07/18/19 09:00 07/19/19 09:29 Plavix PO 75 mg DAILY STACEY Administration Ceftriaxone Sodium 2 gm/ 100 mls @ 200 mls/hr 07/16/19 21:00 07/18/19 21:10 Sodium Chloride IVPB 100 mls Q24HR STACEY Administration Iron/Minerals/Multivitamins 1 tab 07/18/19 09:00 07/19/19 09:29 Theragran M PO 1 tab DAILY STACEY Administration Levothyroxine Sodium 75 mcg 07/18/19 09:00 07/19/19 09:28 Synthroid PO 75 mcg DAILY STACEY Administration Loratadine 10 mg 07/18/19 09:00 07/19/19 09:29 Claritin PO 10 mg DAILY STACEY Administration Losartan Potassium 50 mg 07/18/19 09:00 07/19/19 09:28 Cozaar PO 50 mg DAILY STACEY Administration Pantoprazole Sodium 40 mg 07/18/19 09:00 07/19/19 09:29 Protonix PO 40 mg DAILY STACEY Administration Potassium Chloride 20 meq 07/18/19 17:00 07/19/19 09:28 Klor-Con PO 07/19/19 17:01 20 meq BID-WM STACEY Administration Potassium Chloride 20 meq 07/19/19 13:00 07/19/19 13:14 K-Dur PO 07/19/19 15:00 20 meq NOW STACEY Administration Quetiapine Fumarate 100 mg 07/17/19 21:00 07/18/19 21:10 Seroquel PO 100 mg HS STACEY Administration Rosuvastatin Calcium 10 mg 07/17/19 21:00 07/18/19 21:09 Crestor PO 10 mg HS STACEY Administration Sodium Chloride 10 ml 07/16/19 20:15 07/18/19 21:11 Flush - Normal Saline IVF 10 ml Q12HR PRN Administration Saline Flush Timolol Maleate 1 drop 07/17/19 21:00 07/19/19 09:29 Timoptic 0.25% Ophth Soln L EYE 1 drop BID TSACEY Administration - Exam General Appearance: awake alert Eye: PERRL, anicteric sclera ENT: no oropharyngeal lesions, moist mucosa Neck: supple, no JVD Heart: RRR, no murmur Respiratory: no wheezes, no rales Gastrointestinal: soft, non-tender, non-distended, normal bowel sounds Extremities: no cyanosis, no edema Neurological: cranial nerve grossly intact, no focal deficits Hosp A/P (1) Diarrhea Code(s): R19.7 - DIARRHEA, UNSPECIFIED Status: Acute Qualifiers: Diarrhea type: presumed infectious Qualified Code(s): R19.7 - Diarrhea, unspecified (2) UTI (urinary tract infection) Status: Acute Qualifiers: Urinary tract infection type: acute cystitis Hematuria presence: without hematuria Qualified Code(s): N30.00 - Acute cystitis without hematuria (3) h/o tavr Status: Chronic (4) Chronic heart failure Code(s): I50.9 - HEART FAILURE, UNSPECIFIED Status: Chronic Qualifiers: Heart failure type: diastolic Qualified Code(s): I50.32 - Chronic diastolic (congestive) heart failure (5) Hypertension Code(s): I10 - ESSENTIAL (PRIMARY) HYPERTENSION Status: Chronic Qualifiers: Hypertension type: essential hypertension Qualified Code(s): I10 - Essential (primary) hypertension (6) Hypothyroid Code(s): E03.9 - HYPOTHYROIDISM, UNSPECIFIED Status: Chronic Qualifiers: Hypothyroidism type: unspecified Qualified Code(s): E03.9 - Hypothyroidism , unspecified - Plan correct electrolytes stool studies so far -ve for infectious etiology, ?lactose intolerance, GI consultation encourage po intake to mobilize as tolerated is on ceftriaxone for uti, will switch to vantin on dc continue plavix, crestor, cozaar, synthroid and seroquel, no further lasix likely will need more potassium replacement, await 5pm labs hemo/neurostable
--- NOTE | 2019-07-19 14:30 | RAD ---
Modified barium swallow HISTORY: Dysphagia following cerebral infarct. Feeding difficulties. FINDINGS: Exam was performed in conjunction with speech pathology with multiple consistencies. Video review is available and demonstrates poor bolus formation with early spill of all consistencies to the level of the are of sinuses. There is marked delay in initiation of swallowing. Deep inconsistent penetration with all consistencies. Small amount of aspiration with the thin liquid. Prominent residue in the valleculae with only partial clearing upon secondary swallowing. The esophagus below the level of the hypopharynx was not evaluated. No evidence of obstruction. Please see separate detailed report from speech pathology.
[2019-07-19 17:40] LABS: Anion Gap 13 mmol/L (10-20); BUN (Urea Nitrogen) 18 mg/dL (8.4-25.7); Calc. Creatinine Clearance 59 mL/min (70-130); Calcium 7.9 mg/dL (7.8-10.44); Carbon Dioxide 23 mmol/L (23-31); Chloride 113 mmol/L (98-107); Estimated GFR-MDRD 71; Glucose 103 mg/dL (83-110); Potassium 3.7 mmol/L (3.5-5.1); Sodium 145 mmol/L (136-145)
[2019-07-19] MEDS ORDERED: Famotidine 20 MG TAB PO SCH (21:00)
[2019-07-19] MEDS ORDERED: Famotidine/PF 20 mg/2ml Vial SLOW IVP SCH (21:00)
[2019-07-19] MEDS: cefTRIAXone\\ROCEPHIN 2 GM in Sodium Chloride 0.9% 100 ML IVPB SCH (21:22)
[2019-07-19] MEDS: Calcium Carbonate 600 MG + Vit D TAB PO SCH (21:22)
[2019-07-19] MEDS: Rosuvastatin 10 MG TAB PO SCH (21:22)
--- NOTE | 2019-07-19 21:26 | CON ---
DATE OF CONSULTATION: 07/19/2019 REASON FOR CONSULT: Diarrhea. HISTORY OF PRESENT ILLNESS: Mr. Marquis is an 79-year-old gentleman, is admitted from his alf at [facility] where he is a resident. History comes from review of the chart, talking with his nurse and talking with his son, Jonathan Peterson, that I called on the phone. Apparently, Mr. Marquis, about 2 weeks ago, had a bout of abdominal pain at the alf. He thought maybe it is related to getting some lactose in his diet, then he did not have a bout for a few days, so he was given prune juice and laxatives and began to have some diarrhea. He has intermittent episodes of incontinence and wears a diaper according to the son and so they were monitoring him there at the alf. They did get some stool studies, results of which are not in the chart and then ultimately because of his low potassium, his primary physician, Dr. Sotelo, had him sent to the emergency room. He was brought over here to the hospital and was admitted mainly for hypokalemia and possible dehydration. In talking with the patient, he has no abdominal pain. He states that he was having a loose stool every 2 to 3 days; I am not sure if that is reliable. The nurse here said he was having 3 stools today that were soft, but not watery, although the progress note today from Dr. Perdomo notes that the nurses reported 5 watery stools yesterday. In talking with the patient, he has had no nausea or vomiting. He has not seen blood. Apparently, the nurse said the stools are brown. 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 His potassium was 2.6 on admission, is 2.7 now. He is getting oral potassium replacement. Sodium is 142. His BUN and creatinine have gone from 30 and 1.5 to 21 and 1.2. On admission, his liver function tests were normal. His lipase was 5, albumin was 3.9, protein was 7.6. BNP was 367. Troponin was 0.21 and 0.22 today, it was 0.2, 0.23, and 0.22 on the 30th. Lactic acid was 1.4. He is also found to have urinary tract infection with 2+ blood in his urine, leukocyte esterase, white blood cells greater than 50, 4+ bacteria, no squamous. He has been started on Rocephin for that. Cultures here have been negative for stool lactoferrin, negative for Campylobacter, Shiga toxin. Culture shows normal quintin. Clostridium difficile was negative. Urinalysis showed E. coli which was sensitive to Rocephin. Presently, patient is comfortable in bed without complaints. He is not eating much, so unable to do a swallowing test done today reportedly. PAST MEDICAL HISTORY: He has a prior history of hyperplastic polyps, non-premalignant, last in 2007 was his colonoscopy. Also had reflux, EGD in 2007. History of chronic systolic heart failure. His EF was around 50 now. Also says he has diastolic heart failure, hypertension, hypothyroidism, coronary artery disease, anxiety, BPH, previous pacemaker placement, reflux, hyperlipidemia, irritable bowel syndrome, history of diarrhea in the past, history of prostate cancer, renal artery stenosis, sick sinus syndrome. Also had a previous CVA and TIAs in and he is fine. Osteoporosis and previous lumbar fracture. PAST SURGERY HISTORY: Includes coronary artery bypass graft in 1999, pacemaker was placed for sick sinus in 1999, prostatectomy, right shoulder reconstruction, right inguinal hernia repair x2, right knee arthroscopy and he apparently had a Watchman procedure as well and a TAVR for aortic stenosis in the past. ALLERGIES: ASPIRIN, CAFFEINE, CODEINE, ERYTHROMYCIN, POSSIBLY LACTOSE INTOLERANT. MEDICATIONS: Prior to admission, timolol, Protonix, levothyroxine, Zyrtec, lovastatin, Plavix, calcium, vitamin D, Seroquel, multivitamin, furosemide. FAMILY HISTORY: Congestive heart failure, [place]. SOCIAL HISTORY: Lives in a snf in [place], [place]. REVIEW OF SYSTEMS: Negative for chest pain, shortness of breath or dyspnea on exertion, dysphagia, odynophagia at this point in time. PRESENT MEDICATIONS: Tylenol, Tums, Caltrate, Rocephin, Plavix, Pepcid, multivitamin, thiamine, folate, Synthroid, ranitidine, Cozaar, Protonix, Seroquel, Crestor, normal saline, and Timoptic. He received some oral potassium too. PHYSICAL EXAMINATION: GENERAL: He is resting comfortably in bed. He is little bit contracted. He is alert and oriented to person, place, and time. VITAL SIGNS: Temperature 98, was 99 on admission; heart rate 70; blood pressure 110/73. HEENT: Oropharynx, no lesions. NECK: Supple. No adenopathy. LUNGS: Clear. HEART: Regular rate and rhythm. ABDOMEN: Soft and nontender with no rebound or guarding. There is no evidence of hernias. RECTAL: Reveals soft stool, brown. EXTREMITIES: No clubbing, cyanosis, or edema. ASSESSMENT: 1. Urinary tract infection, etiology unclear. There has been no significant workup of urinary tract infection in this male patient. 2. Diarrhea. It sounds like he was constipated and then some diarrhea. He has had some history of diarrhea, for which he was seen in our office in the past, has not been seen since about 2018. At that time, it was decided not to repeat endoscopies. He also has a history of lactose intolerance. It is unclear if he had acute infection. His stool here shows no white blood cells and no infection or C. difficile. 3. History of heart failure, maybe had a little bit of fluid overload, mainly he has hypokalemia. RECOMMENDATIONS: 1. I will replace potassium IV. At this point in time, it is going to bother his stomach less. 2. Get a CAT scan of his abdomen and pelvis tomorrow with IV and oral contrast. This will effectively evaluate the kidneys and bladder with regard to his urinary tract infection. Also make sure there are no overt lesions in the abdominal cavity, explain his bout of pain recently or high impactions. 3. His diarrhea seems to be improving. His stools are soft and only 3 today. We will follow along with you. Job ID: [id number]
[2019-07-20 05:05] LABS: #Eosinphils 0.3 thou/uL (0.0-0.7); #Monocytes 0.8 thou/uL (0.11-0.59); %Basophils 0.3 % (0.0-1.0); %Eosinophils 3.6 % (0.0-10.0); %Lymphocytes 14.8 % (21.0-51.0); %Monocytes 10.7 % (0.0-10.0); %Neutrophils 70.6 % (42.0-75.0); Hemoglobin 10.9 g/dL (14.0-18.0); Mean Corpuscular HGB CONC 33.1 g/dL (32.0-36.0); Mean Corpuscular Hemoglobin 34.5 pg (27.0-31.0); Mean Platelet Volume 7.2 fL (7.4-10.4); Platelet Count 208 thou/uL (130-400); RBC Distribution Width 13.1 % (11.5-14.5); Red Blood Cell (RBC) Count 3.16 mill/uL (4.70-6.10); White Blood Cell (WBC) Count 7.1 thou/uL (4.8-10.8)
[2019-07-20 05:23] LABS: ALT (SGPT) 39 U/L (8-55); AST (SGOT) 51 U/L (5-34); Albumin 3.1 g/dL (3.4-4.8); Alkaline Phosphatase 66 U/L (40-110); Anion Gap 13 mmol/L (10-20); BUN (Urea Nitrogen) 17 mg/dL (8.4-25.7); Bilirubin, Total 0.3 mg/dL (0.2-1.2); Calc. Creatinine Clearance 65 mL/min (70-130); Calcium 7.7 mg/dL (7.8-10.44); Carbon Dioxide 23 mmol/L (23-31); Chloride 116 mmol/L (98-107); Estimated GFR-MDRD 79; Globulin 3.3 g/dL (2.4-3.5); Glucose 94 mg/dL (83-110); Magnesium 2.2 mg/dL (1.6-2.6); Potassium 3.6 mmol/L (3.5-5.1); Protein, Total 6.4 g/dL (5.8-8.1); Sodium 148 mmol/L (136-145)
[2019-07-20 05:26] LABS: Phosphorus 1.5 mg/dL (2.3-4.7)
[2019-07-20] MEDS ORDERED: Potassium Phosphate 15 MMOL in Sodium Chloride 0.9% 250 ML 250 ML IVPB SCH (06:00)
[2019-07-20] MEDS ORDERED: MD-Gastroview 120 ML BOT ONE (09:07)
[2019-07-20] MEDS ORDERED: Iopamidol 370 76% 100 ML VIAL ONE (09:59)
[2019-07-20] MEDS: Timolol 0.25% Ophth Soln 5 ml Bottle L EYE SCH ×3 (11:17→21:44)
[2019-07-20] MEDS: Losartan 25 MG TAB PO SCH (11:18)
[2019-07-20] MEDS: Multivitamin W/ Minerals 1 TAB PO SCH (11:18)
[2019-07-20] MEDS: Clopidogrel Bisulfate 75 MG TAB PO SCH (11:18)
[2019-07-20] MEDS: Loratadine 10 MG TAB PO SCH (11:18)
[2019-07-20] MEDS: Levothyroxine Sodium 25 MCG TAB PO SCH (11:18)
--- NOTE | 2019-07-20 11:35 | CT ---
CT ABDOMEN AND PELVIS WITH IV AND ORAL CONTRAST: Date: 07/20/2019 HISTORY: Abdominal pain and diarrhea, fever, UTI. COMPARISON: 04/15/2006. FINDINGS: There are mild bibasilar atelectatic changes. The heart is enlarged with dilated hepatic veins and IV C indicative of heart failure. No hepatic mass is seen. The patient is post cholecystectomy. The sple en, pancreas, and adrenal glands are normal. Bilateral renal cysts are again seen. No free air, free fluid, or lymphadenopathy identified in the abdomen or pelvis. The small bowel loops are not abnormal ly dilated. There is contrast in the colon and rectum. A normal appearing appendix is present. There are vascular calcifications without evidence of aneurysmal dilatation of the abdominal aorta. A small , fat-containing umbilical hernia is present. There is severe compression of L1 vertebral body. There is decreased attenuation of the liver compared to the spleen consistent with fatty infiltration. IMPRESSION: 1. Findings suggestive of heart failure. 2. Fatty liver. 3. Bilateral renal cysts. 4. No evidence of bowel obstruction. 5. Small, fat-containing ventral hernia. POS: [facility]
--- NOTE | 2019-07-20 11:59 | RAD ---
EXAM: XR Barium Swallow Esophagus PROVIDED CLINICAL HISTORY: Dysphagia. Primary esophageal issues. COMPARISON: None FINDINGS: Gastrografin was administered as requested by mouth. Patient is only able to take small sips of the G astrografin which limits adequate evaluation, but there is no evidence of obstruction involving the esophagus, and contrast extends through the GE junction freely and without holdup. No definitive narr owing is able to be delineated on this limited exam. IMPRESSION: Limited Gastrografin esophagram which demonstrates no evidence of obstruction, and contrast freely fl ows through the GE junction into the stomach. Although the exam is limited, definitive focal area of narrowing is seen in the esophagus.
--- NOTE | 2019-07-20 12:05 | PDOC.HOSPP ---
- Subjective Encounter Date: 07/20/19 Encounter Time: 11:00 Subjective: no diarrhea or nausea son at bedside - Objective Vital Signs & Weight: Vital Signs (12 hours) Temp Pulse Resp BP BP Pulse Ox 07/20/19 11:57 97.9 F 70 16 137/74 97 07/20/19 08:00 98.1 F 70 16 122/75 97 07/20/19 03:28 97.5 F L 69 12 105/57 L 97 Weight Admit Weight 157 lb Weight 157 lb 6.4 oz I&O: 07/19/19 07/20/19 07/21/19 06:59 06:59 06:59 Intake Total 900 1181 Output Total 200 200 Balance 700 981 Result Diagrams: 07/20/19 04:36 07/20/19 04:36 Hospitalist ROS - Medication Medications: Active Medications Generic Name Dose Route Start Last Admin Trade Name Freq PRN Reason Stop Dose Admin Calcium/Vitamin D 1 tab 07/17/19 21:00 07/19/19 21:22 Caltrate 600 + Vit D PO 1 tab HS STACEY Administration Clopidogrel Bisulfate 75 mg 07/18/19 09:00 07/20/19 11:18 Plavix PO 75 mg DAILY STACEY Administration Ceftriaxone Sodium 2 gm/ 100 mls @ 200 mls/hr 07/16/19 21:00 07/19/19 21:22 Sodium Chloride IVPB 100 mls Q24HR STACEY Administration Iron/Minerals/Multivitamins 1 tab 07/18/19 09:00 07/20/19 11:18 Theragran M PO 1 tab DAILY STACEY Administration Levothyroxine Sodium 75 mcg 07/18/19 09:00 07/20/19 11:18 Synthroid PO 75 mcg DAILY STACEY Administration Loratadine 10 mg 07/18/19 09:00 07/20/19 11:18 Claritin PO 10 mg DAILY STACEY Administration Losartan Potassium 50 mg 07/18/19 09:00 07/20/19 11:18 Cozaar PO 50 mg DAILY STACEY Administration Pantoprazole Sodium 40 mg 07/18/19 09:00 07/20/19 11:18 Protonix PO 40 mg DAILY STACEY Administration Quetiapine Fumarate 100 mg 07/17/19 21:00 07/19/19 21:22 Seroquel PO 100 mg HS STACEY Administration Rosuvastatin Calcium 10 mg 07/17/19 21:00 07/19/19 21:22 Crestor PO 10 mg HS STACEY Administration Sodium Chloride 10 ml 07/16/19 20:15 07/19/19 21:23 Flush - Normal Saline IVF 10 ml Q12HR PRN Administration Saline Flush Timolol Maleate 1 drop 07/17/19 21:00 07/20/19 11:17 Timoptic 0.25% Ophth Soln L EYE 1 drop BID STACEY Administration - Exam General Appearance: awake alert Eye: PERRL, anicteric sclera ENT: no oropharyngeal lesions, dry oral mucosa Neck: supple, no JVD Heart: RRR, no gallops Respiratory: no wheezes, no rales Gastrointestinal: soft, non-tender, non-distended, normal bowel sounds Extremities: no cyanosis, no edema Neurological: cranial nerve grossly intact, no focal deficits Hosp A/P (1) Diarrhea Code(s): R19.7 - DIARRHEA, UNSPECIFIED Status: Acute Qualifiers: Diarrhea type: due to malabsorption Qualified Code(s): K90.9 - Intestinal malabsorption, unspecified; R19.7 - Diarrhea, unspecified (2) UTI (urinary tract infection) Status: Acute Qualifiers: Urinary tract infection type: acute cystitis Hematuria presence: without hematuria Qualified Code(s): N30.00 - Acute cystitis without hematuria (3) h/o tavr Status: Chronic (4) Chronic heart failure Code(s): I50.9 - HEART FAILURE, UNSPECIFIED Status: Chronic Qualifiers: Heart failure type: diastolic Qualified Code(s): I50.32 - Chronic diastolic (congestive) heart failure (5) Hypertension Code(s): I10 - ESSENTIAL (PRIMARY) HYPERTENSION Status: Chronic Qualifiers: Hypertension type: essential hypertension Qualified Code(s): I10 - Essential (primary) hypertension (6) Hypothyroid Code(s): E03.9 - HYPOTHYROIDISM, UNSPECIFIED Status: Chronic Qualifiers: Hypothyroidism type: unspecified Qualified Code(s): E03.9 - Hypothyroidism , unspecified - Plan Diarrhea likely multifactorial, is resolving stool studies so far -ve for infectious etiology, ?lactose intolerance encourage po intake, is on thickened pureed diet (prior h/o cva, is on it for a long time per son) to mobilize as tolerated is on ceftriaxone for uti, will switch to vantin on dc continue plavix, crestor, cozaar, synthroid and seroquel, no further lasix mobilize as tolerated hemo/neurostable dc planning
[2019-07-20] MEDS: Loperamide HCl 2 MG CAP PO PRN (16:23)
[2019-07-20] MEDS: Potassium Chloride 10 MEQ in Dextrose 5% in Water 1,000 ML IV SCH (17:52)
[2019-07-20] MEDS: Calcium Carbonate 600 MG + Vit D TAB PO SCH (21:26)
[2019-07-20] MEDS: Rosuvastatin 10 MG TAB PO SCH (21:26)
--- NOTE | 2019-07-20 22:15 | PRG ---
DATE OF SERVICE: 07/20/2019 SUBJECTIVE: Mr. Marquis is resting and is not significantly interactive at the time. OBJECTIVE: VITAL SIGNS: Temperature 98.1, pulse 73, blood pressure 113/61. LUNGS: Clear to auscultation bilaterally. HEART: Regular rate and rhythm. ABDOMEN: Soft, nontender, and nondistended. Bowel sounds are present. EXTREMITIES: No lower extremity edema. LABORATORY DATA: White blood cell count 7.1, hemoglobin 10.9, platelets 208, creatinine 0.92, sodium 148, albumin 3.1. IMPRESSION: 1. Intermittent diarrhea chronically. He is on antibiotics for urinary tract infection. C diff and other stool studies were negative for infectious organism. 2. Congestive heart failure. RECOMMENDATIONS: 1. He has been placed on a lactose-free diet to make sure this does not resolve his issues. 2. He has been given Imodium for symptomatic treatment. 3. CT scan of the abdomen and pelvis is unremarkable. 4. We will continue to follow him clinically in response to symptomatic treatment for now. Job ID: [id number]
[2019-07-21] MEDS: Potassium Chloride 10 MEQ in Dextrose 5% in Water 1,000 ML IV SCH ×2 (06:08→18:55)
[2019-07-21 08:33] LABS: #Eosinphils 0.4 thou/uL (0.0-0.7); #Lymphocytes 1.2 thou/uL (1.20-3.40); #Monocytes 0.7 thou/uL (0.11-0.59); #Neutrophils 4.9 thou/uL (1.40-6.50); %Basophils 0.5 % (0.0-1.0); %Eosinophils 5.9 % (0.0-10.0); %Lymphocytes 16.9 % (21.0-51.0); %Monocytes 9.9 % (0.0-10.0); %Neutrophils 66.9 % (42.0-75.0); Hemoglobin 11.1 g/dL (14.0-18.0); Mean Corpuscular HGB CONC 34.3 g/dL (32.0-36.0); Mean Corpuscular Hemoglobin 35.9 pg (27.0-31.0); Mean Platelet Volume 7.2 fL (7.4-10.4); Platelet Count 222 thou/uL (130-400); RBC Distribution Width 13.3 % (11.5-14.5); Red Blood Cell (RBC) Count 3.11 mill/uL (4.70-6.10); White Blood Cell (WBC) Count 7.4 thou/uL (4.8-10.8)
[2019-07-21 08:42] LABS: Anion Gap 12 mmol/L (10-20); BUN (Urea Nitrogen) 12 mg/dL (8.4-25.7); Calc. Creatinine Clearance 68 mL/min (70-130); Calcium 7.6 mg/dL (7.8-10.44); Carbon Dioxide 21 mmol/L (23-31); Chloride 110 mmol/L (98-107); Estimated GFR-MDRD 84; Glucose 102 mg/dL (83-110); Potassium 3.3 mmol/L (3.5-5.1); Sodium 140 mmol/L (136-145)
[2019-07-21] MEDS: Loratadine 10 MG TAB PO SCH (09:40)
[2019-07-21] MEDS: Levothyroxine Sodium 25 MCG TAB PO SCH (09:40)
[2019-07-21] MEDS: Losartan 25 MG TAB PO SCH (09:40)
[2019-07-21] MEDS: Multivitamin W/ Minerals 1 TAB PO SCH (09:40)
[2019-07-21] MEDS: Clopidogrel Bisulfate 75 MG TAB PO SCH (09:41)
[2019-07-21] MEDS: Timolol 0.25% Ophth Soln 5 ml Bottle L EYE SCH ×2 (09:41→20:35)
--- NOTE | 2019-07-21 11:09 | PDOC.HOSPP ---
- Subjective Encounter Date: 07/21/19 Encounter Time: 10:00 Subjective: awake, no nausea or abd pain responds well to verbal questions moves all extremities - Objective Vital Signs & Weight: Vital Signs (12 hours) Temp Pulse Resp BP Pulse Ox 07/21/19 09:25 97 07/21/19 07:29 98.4 F 71 20 134/83 97 07/21/19 04:00 98.4 F 68 18 118/64 96 07/21/19 00:00 98.4 F 69 16 101/51 L 94 L Weight Admit Weight 157 lb Weight 157 lb 6.4 oz I&O: 07/20/19 07/21/19 07/22/19 06:59 06:59 06:59 Intake Total 1181 3130 Output Total 200 Balance 981 3130 Result Diagrams: 07/21/19 08:14 07/21/19 08:14 Hospitalist ROS - Medication Medications: Active Medications Generic Name Dose Route Start Last Admin Trade Name Freq PRN Reason Stop Dose Admin Cefpodoxime Proxetil 100 mg 07/20/19 21:00 07/21/19 09:40 Vantin PO 100 mg BID STACEY Administration Clopidogrel Bisulfate 75 mg 07/18/19 09:00 07/21/19 09:41 Plavix PO 75 mg DAILY STACEY Administration Potassium Chloride 10 meq/ 1,005 mls @ 75 mls/hr 07/20/19 15:45 07/21/19 06: 08 Dextrose/Water IV 1,005 mls .[id number] STACEY Administration Iron/Minerals/Multivitamins 1 tab 07/18/19 09:00 07/21/19 09:40 Theragran M PO 1 tab DAILY STACEY Administration Levothyroxine Sodium 75 mcg 07/18/19 09:00 07/21/19 09:40 Synthroid PO 75 mcg DAILY STACEY Administration Loperamide HCl 2 mg 07/20/19 15:44 07/20/19 16:23 Imodium PO 2 mg DAILY PRN Administration Diarrhea/Loose Stools Loratadine 10 mg 07/18/19 09:00 07/21/19 09:40 Claritin PO 10 mg DAILY STACEY Administration Losartan Potassium 50 mg 07/18/19 09:00 07/21/19 09:40 Cozaar PO 50 mg DAILY STACEY Administration Pantoprazole Sodium 40 mg 07/18/19 09:00 07/21/19 09:40 Protonix PO 40 mg DAILY STACEY Administration Quetiapine Fumarate 100 mg 07/17/19 21:00 07/20/19 21:26 Seroquel PO 100 mg HS STACEY Administration Rosuvastatin Calcium 10 mg 07/17/19 21:00 07/20/19 21:26 Crestor PO 10 mg HS STACEY Administration Sodium Chloride 10 ml 07/16/19 20:15 07/19/19 21:23 Flush - Normal Saline IVF 10 ml Q12HR PRN Administration Saline Flush Timolol Maleate 1 drop 07/17/19 21:00 07/21/19 09:41 Timoptic 0.25% Ophth Soln L EYE 1 drop BID STACEY Administration - Exam General Appearance: awake alert Eye: PERRL, anicteric sclera ENT: no oropharyngeal lesions, moist mucosa Neck: supple, no JVD Heart: RRR, no gallops Respiratory: no wheezes, no rales, rhonchi Gastrointestinal: soft, non-tender, non-distended, normal bowel sounds Extremities: no cyanosis, no edema Neurological: cranial nerve grossly intact, no focal deficits Hosp A/P (1) Diarrhea Code(s): R19.7 - DIARRHEA, UNSPECIFIED Status: Acute Qualifiers: Diarrhea type: due to malabsorption Qualified Code(s): K90.9 - Intestinal malabsorption, unspecified; R19.7 - Diarrhea, unspecified (2) UTI (urinary tract infection) Status: Acute Qualifiers: Urinary tract infection type: acute cystitis Hematuria presence: without hematuria Qualified Code(s): N30.00 - Acute cystitis without hematuria (3) h/o tavr Status: Chronic (4) Chronic heart failure Code(s): I50.9 - HEART FAILURE, UNSPECIFIED Status: Chronic Qualifiers: Heart failure type: diastolic Qualified Code(s): I50.32 - Chronic diastolic (congestive) heart failure (5) Hypertension Code(s): I10 - ESSENTIAL (PRIMARY) HYPERTENSION Status: Chronic Qualifiers: Hypertension type: essential hypertension Qualified Code(s): I10 - Essential (primary) hypertension (6) Hypothyroid Code(s): E03.9 - HYPOTHYROIDISM, UNSPECIFIED Status: Chronic Qualifiers: Hypothyroidism type: unspecified Qualified Code(s): E03.9 - Hypothyroidism , unspecified - Plan Diarrhea likely multifactorial, appeared to stop after 1 dose loperamide but started to have loose stools x4 last 24hrs now. stool studies so far -ve for infectious etiology, ?lactose intolerance encourage po intake, is on thickened pureed diet (prior h/o cva, is on it for a long time per son) to mobilize as tolerated is on vantin for uti continue plavix, crestor, cozaar, synthroid and seroquel. is on gentle iv fluids, is also eating better, will dc fluids by evening. mobilize as tolerated hemo/neurostable dc planning
[2019-07-21] MEDS: Loperamide HCl 2 MG CAP PO PRN (13:10)
[2019-07-21] MEDS ORDERED: Furosemide 20 MG/2 ML VIAL SLOW IVP SCH (16:30)
[2019-07-21] MEDS: Rosuvastatin 10 MG TAB PO SCH (20:35)
[2019-07-22 01:02] LABS: BUN (Urea Nitrogen) 11 mg/dL (8.4-25.7); Calc. Creatinine Clearance 67 mL/min (70-130); Calcium 7.4 mg/dL (7.8-10.44); Carbon Dioxide 19 mmol/L (23-31); Chloride 110 mmol/L (98-107); Estimated GFR-MDRD 82; Glucose 85 mg/dL (83-110); Sodium 139 mmol/L (136-145)
[2019-07-22 01:03] LABS: Anion Gap 14 mmol/L (10-20)
[2019-07-22 05:12] LABS: Anion Gap 12 mmol/L (10-20); BUN (Urea Nitrogen) 11 mg/dL (8.4-25.7); Calc. Creatinine Clearance 71 mL/min (70-130); Calcium 7.5 mg/dL (7.8-10.44); Carbon Dioxide 24 mmol/L (23-31); Chloride 110 mmol/L (98-107); Estimated GFR-MDRD 88; Glucose 89 mg/dL (83-110); Potassium 3.6 mmol/L (3.5-5.1); Sodium 142 mmol/L (136-145)
--- NOTE | 2019-07-22 09:33 | PQF ---
DATE: 07-22-19 ATTN: DR. REYNA WAGGONER Please exercise your independent, professional judgment in responding to the clarification form. Clinical indicators are provided on the bottom of this form for your review Please check appropriate box(es): [ ] Sepsis present on admission [ ] Sepsis NOT present on admission [ ] Unable to determine [ x ] SIRS due to non-infectious process (please specify etiology) ___possible from diarrhea and dehydration with electrolyte shift [ ] with organ dysfunction [ ] without organ dysfunction [ ] Localized infection without sepsis [ ] Other diagnosis [ ] Unable to determine For continuity of documentation, please document condition throughout progress notes and discharge summary. Thank You. CLINICAL INDICATORS - SIGNS / SYMPTOMS / LABS / RESULTS AND LOCATION IN MR: ER T: 101.4, WBC: 07-16-19: 11.0, 07-17-19: 12.8 NEUTROPHILS: 07-16-19: 81.0% H&P: 07-17-19: W/UTI & AMILCAR RISK FACTORS / RESULTS AND LOCATION IN MR: H&P: 07-17-19: W/UTI & AMILCAR Advancing Age TREATMENTS / RESULTS AND LOCATION IN MR: ER 07-17-19: POTASSIUM CHLORIDE IN WATER IV, NS IV, VANTIN PO (This form is maintained as a part of the permanent medical record) 2014 [employer]. All Rights Reserved DIANE [email or web address] [facility]
[2019-07-22] MEDS: Loratadine 10 MG TAB PO SCH (09:42)
[2019-07-22] MEDS: Levothyroxine Sodium 25 MCG TAB PO SCH (09:43)
[2019-07-22] MEDS: Losartan 25 MG TAB PO SCH (09:43)
[2019-07-22] MEDS: Multivitamin W/ Minerals 1 TAB PO SCH (09:43)
[2019-07-22] MEDS: Timolol 0.25% Ophth Soln 5 ml Bottle L EYE SCH (09:44)
[2019-07-22] MEDS: Clopidogrel Bisulfate 75 MG TAB PO SCH (09:44)
--- NOTE | 2019-07-22 10:29 | PQF ---
DATE: 07-22-19 ATTN: DR. REYNA WAGGONER Please exercise your independent, professional judgment in responding to the clarification form. Clinical indicators are provided on the bottom of this form for your review Please check appropriate box(s): [ x] Demand Ischemia sec to diarrhea and electrolyte abnormalities [ ] Insignificant Lab Values [ ] Other diagnosis [ ] Unable to determine In addition, please specify: Present on Admission (POA): [ x ] Yes [ ] No [ ] Unable to determine For continuity of documentation, please document condition throughout progress notes and discharge summary. Thank You. CLINICAL INDICATORS - SIGNS / SYMPTOMS/ LABS are present in the medical record: TROPONIN: 07-16-19: 0.217 07-16-19: 0.236 07-17-19: 0.222 RISK FACTORS : ER 07-17-19: GENERALIZED WEAKNESS, HX CVA, CHF, OSTEOPOROSIS, PROSTATE CA, HYPERLIPIDEMIA, HTN, PACEMAKER, CABG X4, AORTIC VALVE REPLACEMENT ER DX 07-17-19: HYPOKALEMIA, ACUTE CYSTITIS, AMILCAR, DIARRHEA CONSULT NOTE ARATA 07-18-19: CAD WITH HX OF CABG TREATMENT: CARDIOLOGY CONSULT 07-18-19: PT ON PLAVIX, ALLERGIC TO ASA MAR: POTASSIUM CHLORIDE IV, LASIX IV, PLAVIX (This form is maintained as a part of the permanent medical record) 2014 [employer]. All Rights Reserved [employer]
--- NOTE | 2019-07-22 10:42 | PQF ---
DATE: 07-22-19 ATTN: DR. WAGGONER Please exercise your independent, professional judgment in responding to the clarification form. Clinical indicators are provided on the bottom of this form for your review Please check appropriate box(s): HEART FAILURE: A. ACUITY [ ] Acute [ ] Acute on Chronic [ x] Chronic B. TYPE [ ] Systolic / HFrEF [ ] Diastolic / HFpEF [ x ] Combined Systolic / Diastolic [ ] Hypertensive Heart and Kidney disease [ ] Hypertensive Heart Disease [ ] Hypertensive Kidney Disease [ x] Other diagnosis ___no current exacerbation [ ] Unable to determine In addition, please specify: Present on Admission (POA): [ ] Yes [ ] No [ ] Unable to determine For continuity of documentation, please document condition throughout progress notes and discharge summary. Thank You. CLINICAL INDICATORS - SIGNS / SYMPTOMS / LABS / RESULTS AND LOCATION IN EMR: BNP 07-16-19: 367 MAR: IV Lasix 07/17 & 07/18; PN 07/17 (KEZIA): SUBJ: AMILCAR resolved w/IVF, now he does appear to be on the wet side. Will DC IVF & start IV diuretic; ACUTE HEART FAILURE CXR 07/18 - Mild pulmonary vascular congestion; CT ABD/PELVIS 07/19 - Heart is enlarged w/dilated hepatic veins & IVC indicative of HF. Findings are suggestive of HF RISKS FACTORS / RESULTS AND LOCATION IN EMR: CONSULT NOTE ARATA 07-18-19: HX OF CAD WITH S/P CABG, PAROSYSMAL A FIB, SEVERE AORTIC VALVE STENSIS, CHRONIC SYSTOLIC HEART FAILURE, PACEMAKER PLACEMENT, HTN, HYPERLIPEDEMIA TREATMENTS / RESULTS AND LOCATION IN EMR: MAR: IV Lasix 07/17 & 07/18; ECHO 07-19-19 Cardiology Consult 07-18-19 (This form is maintained as a part of the permanent medical record) 2014 [employer]. All Rights Reserved [email or web address] [email or web address]
[2019-07-22 11:33] VITALS: BP 118/72; TEMP 98
[2019-07-22 11:54] LABS: Bilirubin Negative (Negative); Blood, Urine Negative (Negative); Clarity Clear (Clear); Glucose, Urine (Dipstick) Normal (Negative); Leukocyte 25 Leu/uL (Negative); Nitrite Negative (Negative); Protein, Urine (Dipstick) 20 mg/dL (Neg-Trace); RBC/HPF 0-3 HPF (0-3); Squamous Epithelial 0-3 HPF (0-3); Urobilinogen Normal mg/dL (Less than 2)
[2019-07-22 12:07] LABS: Bacteria/HPF 1+ HPF (None Seen)
--- NOTE | 2019-07-22 17:25 | DIS ---
DATE OF ADMISSION: 07/16/2019 DATE OF DISCHARGE: 07/22/2019 DISCHARGE DISPOSITION: Assisted Living Facility at [facility]. PRIMARY DISCHARGE DIAGNOSES: Severe diarrhea likely multifactorial and non-infectious, resolved; severe dehydration with acute kidney injury and multiple electrolyte abnormalities, resolved; history of congestive heart failure with diastolic dysfunction with no acute exacerbation; history of TAVR; hypertension; hypothyroidism; blindness; urinary tract infection. PROCEDURES DONE DURING HOSPITALIZATION: Chest x-ray done showed moderate cardiomegaly. Echo with 2D Doppler showed ejection fraction of 50% to 55%. Left atrium was severely dilated, moderate mitral regurgitation, normal functioning of transcutaneous aortic valve, moderate tricuspid regurgitation. PA systolic pressures were 56 mmHg. Abdominal and pelvic CAT scan done on 07/20/2019, with IV and oral contrast done showed findings suggestive of fatty liver. No evidence of bowel obstruction. Small fat containing ventral hernia was seen. The patient has had a Gastrografin esophagogram done, which demonstrates no evidence of obstruction. Contrast freely flows through the gastroesophageal junction into stomach. He has had modified barium swallow with speech done on 07/19/2019, which showed marked delay in initiation of swallowing, deep inconsistent penetration with all consistencies. A small amount of aspiration with the thin liquid, prominent residue in the valleculae with only partial clearing upon secondary swallowing. Stool for C diff negative. Stool for Campylobacter antigen and Shiga toxins were negative. Urine culture grew E coli sensitive to cephalosporins, gentamicin, meropenem, nitrofurantoin, and Zosyn, but resistant to ampicillin, quinolones, and sulfa. White count of 7, hemoglobin and hematocrit 11 and 32, platelet count 222. Discharge BUN and creatinine were 11 and 0.8, initial BUN and creatinine were 29 and 1.6. COVID-19 PCR was not detected. DISCHARGE MEDICATIONS: 1. Cetirizine 10 mg p.o. at bedtime. 2. Calcium with vitamin D 1 tablet daily. 3. Synthroid 75 mcg p.o. daily. 4. Cozaar 50 mg p.o. daily. 5. Multivitamin one tablet once daily. 6. Protonix 40 mg daily. 7. Seroquel 100 mg p.o. at bedtime. 8. Crestor 10 mg p.o. at bedtime. 9. Timolol eye drops as before. 10. Vantin 100 mg p.o. twice daily for three more days for urinary tract infection. 11. Plavix 75 mg p.o. daily. ALLERGIES: ASPIRIN, CODEINE, ERYTHROMYCIN, AND CAFFEINE. DISCHARGE PLAN: The patient to follow up with his primary care physician in 1 week. He needs to follow up with Dr. Quinteros in 2 to 3 weeks. BRIEF COURSE DURING HOSPITALIZATION: The patient initially got admitted on the with history of watery diarrhea. He also had generalized weakness and multiple electrolyte abnormalities with acute kidney injury. He had hypokalemia as well. In view of this, the patient was admitted to the hospital. He also was treated for urinary tract infection during his stay here. He was on IV antibiotics and has been switched over to Vantin at the time of discharge. The patient's diarrhea is likely multifactorial. He initially was constipated and later started to have multiple loose stools. The patient also might likely have a component of lactose intolerance. He was evaluated by Dr. Quinteros during his stay here for Gastroenterology as well. All his stool specimens were negative for infectious etiology including C diff. His initial COVID-19 PCR was negative as well. At the time of discharge, the patient is tolerating oral thickened liquid diet due to his prior history of CVA and dysphagia. His diarrhea has completely resolved at the time of discharge. He is hemodynamically stable and will be shortly discharged back to his assisted living facility. I have given complete updates to the patient's son and daughter on the phone. Please note, I have seen and examined the patient on the day of discharge. Job ID: [id number]
--- NOTE | 2019-07-24 15:04 | EKG ---
Test Reason : Blood Pressure : / mmHG Vent. Rate : 084 BPM Atrial Rate : 084 BPM P-R Int : 000 ms QRS Dur : 162 ms QT Int : 538 ms P-R-T Axes : 000 258 077 degrees QTc Int : 635 ms Ventricular-paced rhythm Abnormal ECG Confirmed by DEO ELAM, LAUREN ([id number]), publication editor SHIRA LANE ([id number]) on 07/24/2019 3:04:22 PM Referred By: Confirmed By:LAUREN DESOUZA MD
== END 2019-07-22 16:40 | DRG 683 ==
LOC: ERS 15:54 → 2SW 20:09 → 2SE 07-17 21:45
PROVIDERS: ADMIT Internal Medicine; ATTEND Internal Medicine
DX: N17.9 Acute kidney failure, unspecified (principal); K90.9 Intestinal malabsorption, unspecified; R65.10 Systemic inflammatory response syndrome (SIRS) of non-infectious origin without acute organ dysfunction; I50.32 Chronic diastolic (congestive) heart failure; N30.00 Acute cystitis without hematuria; E73.9 Lactose intolerance, unspecified; Z20.828 Contact with and (suspected) exposure to other viral communicable diseases; K58.0 Irritable bowel syndrome with diarrhea; K52.9 Noninfective gastroenteritis and colitis, unspecified; E86.0 Dehydration; E03.9 Hypothyroidism, unspecified; H54.8 Legal blindness, as defined in USA; I11.0 Hypertensive heart disease with heart failure; M81.0 Age-related osteoporosis without current pathological fracture; E78.5 Hyperlipidemia, unspecified; F41.9 Anxiety disorder, unspecified; N40.0 Benign prostatic hyperplasia without lower urinary tract symptoms; K21.9 Gastro-esophageal reflux disease without esophagitis; I25.5 Ischemic cardiomyopathy; E87.6 Hypokalemia; I25.10 Atherosclerotic heart disease of native coronary artery without angina pectoris; I49.5 Sick sinus syndrome; B96.20 Unspecified Escherichia coli [E. coli] as the cause of diseases classified elsewhere; Z95.1 Presence of aortocoronary bypass graft; Z95.2 Presence of prosthetic heart valve; Z95.0 Presence of cardiac pacemaker; Z88.1 Allergy status to other antibiotic agents; Z88.5 Allergy status to narcotic agent; Z88.8 Allergy status to other drugs, medicaments and biological substances; Z79.01 Long term (current) use of anticoagulants; Z79.890 Hormone replacement therapy; Z79.899 Other long term (current) drug therapy; Z86.73 Personal history of transient ischemic attack (TIA), and cerebral infarction without residual deficits; K59.00 Constipation, unspecified
CPT/HCPCS: 36415; 71045; 74177; 74220; 74230; 80048; 80053; 81001; 81003; 81015; 82550; 82553; 83605; 83630; 83690; 83735; 83880; 84100; 84484; 85025; 87045; 87046; 87077; 87086; 87186; 87324; 87427; 87449; 87635; 93005; 93306; 96361; 96365; 96366; J0696; J1940; J3480; J3490; J7050; J7070; Q9963; Q9967; S0028; U0003

== ENCOUNTER 2020-02-06 10:06 | Day surgery (SDC) | payer MEDICARE ==
[~2020-02-06 10:06] MED LIST: Dexamethasone 20 MG/5 ML VIAL ONE; Lidocaine 1% PF 5 ML VIAL ONE; PHENYLEPHRINE-NS 100 MCG/ML 10 ML SYRINGE ONE; PROPOFOL 200 MG/20 ML VIAL ONE; Rocuronium Bromide 10 MG/ML (10ML VIAL) ONE; Succinylcholine 200 MG/10 ml SYRINGE FS ONE; ePHEDrine 50 MG/ML VIAL ONE
[2020-02-06 10:36] LABS: #Eosinphils 0.1 thou/uL (0.0-0.7); #Lymphocytes 1.2 thou/uL (1.20-3.40); #Monocytes 0.6 thou/uL (0.11-0.59); #Neutrophils 6.7 thou/uL (1.40-6.50); %Basophils 0.4 % (0.0-1.0); %Eosinophils 1.5 % (0.0-10.0); %Lymphocytes 14.2 % (21.0-51.0); %Monocytes 6.8 % (0.0-10.0); %Neutrophils 77.1 % (42.0-75.0); Hemoglobin 8.8 g/dL (14.0-18.0); Mean Corpuscular HGB CONC 33.4 g/dL (32.0-36.0); Mean Corpuscular Hemoglobin 34.8 pg (27.0-31.0); Mean Platelet Volume 7.3 fL (7.4-10.4); Platelet Count 166 thou/uL (130-400); Red Blood Cell (RBC) Count 2.53 mill/uL (4.70-6.10); White Blood Cell (WBC) Count 8.6 thou/uL (4.8-10.8)
[2020-02-06] MEDS ORDERED: Tranexamic Acid 1,000 MG/10 ML VIAL ONE (11:13)
[2020-02-06 11:26] LABS: ALT (SGPT) 11 U/L (8-55); AST (SGOT) 15 U/L (5-34); Albumin 3.4 g/dL (3.4-4.8); Alkaline Phosphatase 69 U/L (40-110); Anion Gap 15 mmol/L (10-20); BUN (Urea Nitrogen) 43 mg/dL (8.4-25.7); Bilirubin, Total 0.7 mg/dL (0.2-1.2); Calc. Creatinine Clearance 0 mL/min (70-130); Calcium 8.2 mg/dL (7.8-10.44); Carbon Dioxide 24 mmol/L (23-31); Chloride 110 mmol/L (98-107); Globulin 3.1 g/dL (2.4-3.5); Glucose 101 mg/dL (83-110); Potassium 4.4 mmol/L (3.5-5.1); Protein, Total 6.5 g/dL (5.8-8.1); Sodium 145 mmol/L (136-145)
[2020-02-06] MEDS ORDERED: Bacitracin 1 PK ONE ×2 (12:11→17:02)
[2020-02-06 12:14] LABS: INR-International Normal Ratio 1.2; PTT 34.3 sec (22.9-36.1); Prothrombin Time 15.8 sec (12.0-14.7)
[2020-02-06] MEDS ORDERED: Fentanyl 100 MCG/2 ML VIAL ONE (12:42)
[2020-02-06] MEDS ORDERED: Triamcinolone 40 MG/ML VIAL ONE (12:54)
[2020-02-06] MEDS ORDERED: AFRIN NASAL MIST 15 ML BOT ONE ×2 (12:54→15:45)
[2020-02-06] MEDS ORDERED: EPINEPHrine 1 MG/ML AMP ONE ×2 (12:54→12:55)
[2020-02-06] MEDS ORDERED: Lidocaine 1% w/Epinephrine 1:100K 20 ML VIAL ONE (12:54)
[2020-02-06 12:56] LABS: SARS-CoV-2 NAA Rapid Test Not Detected (NotDetected)
[2020-02-06] MEDS ORDERED: Phenylephrine 10 MG/ML VIAL ONE (13:48)
[2020-02-06] MEDS ORDERED: SUGAMMADEX SODIUM 500 MG/5 ML VIAL ONE (14:03)
[2020-02-06 14:12] LABS: Hemoglobin 9.2 g/dL (14.0-18.0)
--- NOTE | 2020-02-06 15:26 | CON ---
DATE OF CONSULTATION: 02/06/2020 REASON FOR CONSULTATION: Epistaxis. HISTORY OF PRESENT ILLNESS: Mr. Marquis is an 79-year-old male who presented with a 2-day history of persistent epistaxis appeared to be mostly coming from the right nostril and down the back of his throat. He was on Plavix for blood thinners for a previous history of stroke and cardiovascular disease and has not been able to control it with conservative means. He had significant drop in his hemoglobin level and attempts to packing and control it with nasal packings were unsuccessful and has asked to evaluate for further to see if we could control the epistaxis. PAST MEDICAL HISTORY: Significant for cerebrovascular accident, congestive heart failure, osteoporosis, prostate cancer, blindness in bilateral eyes, hyperlipidemia, hypertension, and previous history of pacemaker. PAST SURGICAL HISTORY: Significant for coronary artery bypass grafting x4, prostatectomy, and aortic valve replacement. SOCIAL HISTORY: Denies alcohol use or smoking history. REVIEW OF SYSTEMS: No other complaints at this time. Please see his ER note for further details of his past medical history and review of systems. PHYSICAL EXAMINATION: GENERAL: Well-developed, well-nourished, elderly white male, in moderate distress. HEENT: Head; normocephalic, atraumatic. Eyes; the patient is blind. Ears; both tympanic membranes are intact, mobile, and clear. Appears to have some blood in the middle ear space. Nose shows packing on both sides with oozing from his right eye and also from his right nostril. Oral cavity, oropharynx shows large clot in the pharynx. Tonsils appear to be absent. No other lesions were noted. The patient is edentulous. NECK: No significant adenopathy or mass. Thyroid palpably normal. LUNGS: Clear to auscultation. HEART: Rate and rhythm regular without murmur or gallop. IMPRESSION: Right posterior epistaxis. PLAN: To take him to the OR and control the epistaxis endoscopically. Suspect a posterior epistaxis. The patient understands the indications, benefits, risks, complications, and consents to the procedure. Job ID: [id number]
[2020-02-06] MEDS ORDERED: Morphine 2 MG/ML VIAL ONE (16:43)
[2020-02-06] MEDS ORDERED: Sodium Chloride 0.9% 10 ML ONE (17:02)
--- NOTE | 2020-02-06 18:45 | OP ---
DATE OF PROCEDURE: 02/06/2020 PREOPERATIVE DIAGNOSIS: Right posterior epistaxis. POSTOPERATIVE DIAGNOSIS: Right posterior epistaxis. PROCEDURE PERFORMED: Endoscopic control of nasal hemorrhage. ANESTHESIA: General. PREOPERATIVE NOTE: Mr. Marquis is an 79-year-old white male, who presented to the ER after 2 days history of persistent epistaxis. Attempted to control it with a Rhino Rocket nasal pack on the right side and continued to bleed. They did a second Rhino Rocket on the left side and seemed to get better control of the bleeding, but was called to evaluate and try and control the epistaxis. DESCRIPTION OF PROCEDURE: After the patient received adequate general anesthesia, the patient was placed supine position, prepped and draped in usual standard fashion. The packing in the nose was removed and the bleeding had subsided significantly. Exam in the right nostril using a nasal endoscope and on examination appeared to be a posterior sphenopalatine artery bleeder was a source of bleeding. There was some irritation from the packing in other areas, but this seemed to be the major site for bleeding. It was opted to do a sphenopalatine ligation. The greater palatine foramen was found and injected with 1% lidocaine with 1:100,000 epinephrine and the middle meatus was packed with epinephrine-soaked cottonoids. After giving that a few minutes to work, examination found the back end of the maxillary sinus, the bone and using a Mimi elevator, elevated the mucosa posteriorly until we were able to visualize the sphenopalatine artery. There was obvious site of bleeding coming from the sphenopalatine artery. Using a seeker and the Mimi, however, dissected the artery out and then put 3 clips on the artery and cauterized the other side of the artery along the sphenoid face and posterior aspect of the middle turbinate. This seemed to get good control of the bleeding in this area. We then examined the rest of the nose. There were a few areas that have been irritated by the packing, which were cauterized on the septum and the right anterior-inferior turbinate and along the floor of the nose. I examined the left side, there were a few areas on that side that were irritated from the packing. They were also cauterized with suction Bovie cautery in the setting of 20. Examination posteriorly showed no evidence of any other significant bleeding. On the left side did have a septal perforation. I suctioned out the maxillary sinus on the right side and otherwise the bleeding appeared to be controlled. I allowed his blood pressure to elevate and even after elevation of his blood pressure did not see any significant bleeding. His nose, mouth, and stomach were then suctioned clear. I did put some a Gel-Foam soaked with saline around the site of the sphenopalatine artery dissection to help with healing and he was awakened, taken to the recovery room in stable condition. He tolerated the procedure well. ESTIMATED BLOOD LOSS: 100 mL. COUNTS: Sponge and needle count correct at the end of the case. COMPLICATIONS: No complications. Job ID: [id number]
== END 2020-02-06 18:30 ==
LOC: ERS 10:06 → SDC 12:55
PROVIDERS: ATTEND Otolaryngology
PROC: 093K8ZZ Control Bleeding in Nasal Mucosa and Soft Tissue, Via Natural or Artificial Opening Endoscopic (ICD-10-PCS; principal; 2020-02-06)
DX: R04.0 Epistaxis (principal); M81.0 Age-related osteoporosis without current pathological fracture; E78.5 Hyperlipidemia, unspecified; I11.0 Hypertensive heart disease with heart failure; I50.9 Heart failure, unspecified; H54.3 Unqualified visual loss, both eyes; Z86.73 Personal history of transient ischemic attack (TIA), and cerebral infarction without residual deficits; Z79.02 Long term (current) use of antithrombotics/antiplatelets; Z79.899 Other long term (current) drug therapy; Z88.1 Allergy status to other antibiotic agents; Z88.5 Allergy status to narcotic agent; Z88.6 Allergy status to analgesic agent; Z88.8 Allergy status to other drugs, medicaments and biological substances; Z95.0 Presence of cardiac pacemaker; Z95.1 Presence of aortocoronary bypass graft; Z95.2 Presence of prosthetic heart valve; Z20.828 Contact with and (suspected) exposure to other viral communicable diseases
CPT/HCPCS: 31238; 36430; 80053; 82962; 85014; 85018; 85025; 85384; 85610; 85730; 86850; 86900; 86901; 86920; 93005; 94760; J2270; P9016; U0002; 36415; 36416; J0171; J1100; J2370; J2704; J3010; J3301; J3490

== ENCOUNTER 2020-02-19 13:37 | Inpatient (IN) | payer MEDICARE ==
[2020-02-19] MEDS ORDERED: Acetaminophen 500 MG TAB ONE (13:48)
[2020-02-19 14:40] LABS: #Lymphocytes 0.5 thou/uL (1.20-3.40); #Monocytes 0.2 thou/uL (0.11-0.59); #Neutrophils 7.9 thou/uL (1.40-6.50); %Basophils 0.2 % (0.0-1.0); %Eosinophils 0.1 % (0.0-10.0); %Lymphocytes 5.3 % (21.0-51.0); %Monocytes 2.5 % (0.0-10.0); %Neutrophils 91.9 % (42.0-75.0); Hemoglobin 8.6 g/dL (14.0-18.0); Mean Corpuscular HGB CONC 32.6 g/dL (32.0-36.0); Mean Corpuscular Hemoglobin 33.7 pg (27.0-31.0); Mean Platelet Volume 7.2 fL (7.4-10.4); Platelet Count 204 thou/uL (130-400); RBC Distribution Width 15.7 % (11.5-14.5); Red Blood Cell (RBC) Count 2.55 mill/uL (4.70-6.10); White Blood Cell (WBC) Count 8.5 thou/uL (4.8-10.8)
--- NOTE | 2020-02-19 14:49 | RAD ---
EXAM: Chest one view: HISTORY: Cough COMPARISON: 04/04/2017 FINDINGS: Left ICD. Postop midline sternotomy. Heart size: Marked cardiomegaly. Lungs: Bilateral marked vascular congestion and vascular prominence particularly in the perihilar reg ions definitely more progressive from prior study evidence for possible pulmonary artery hypertension. No evidence for confluent lobar pneumonia, significant pleural effusion, acute edema, or pneumothorax , or other significant acute process. IMPRESSION: Marked cardiomegaly with more extensive vascular congestion and pulmonary artery dilatation from prio r study evidence for possible pulmonary artery hypertension. Some degree of underlying Covid pneumonia cannot be excluded.
[2020-02-19 14:52] LABS: ALT (SGPT) 19 U/L (8-55); AST (SGOT) 39 U/L (5-34); Albumin 3.3 g/dL (3.4-4.8); Alkaline Phosphatase 70 U/L (40-110); Anion Gap 17 mmol/L (10-20); BUN (Urea Nitrogen) 16 mg/dL (8.4-25.7); Bilirubin, Total 0.6 mg/dL (0.2-1.2); CK (CPK) 71 U/L (30-200); Calc. Creatinine Clearance 0 mL/min (70-130); Calcium 8.2 mg/dL (7.8-10.44); Carbon Dioxide 24 mmol/L (23-31); Chloride 107 mmol/L (98-107); Globulin 3.8 g/dL (2.4-3.5); Glucose 112 mg/dL (83-110); Lipase 11 U/L (8-78); Potassium 3.9 mmol/L (3.5-5.1); Protein, Total 7.1 g/dL (5.8-8.1); Sodium 144 mmol/L (136-145)
[2020-02-19] MEDS ORDERED: cefTRIAXone\\ROCEPHIN 1 GM VIAL ONE (15:01)
[2020-02-19 15:13] LABS: CKMB 1.3 ng/mL (0-6.6)
[2020-02-19 15:35] LABS: SARS-CoV-2 NAA Rapid Test DETECTED (NotDetected)
--- NOTE | 2020-02-19 18:04 | PDOC.BPN ---
- Brief Progress Note Encounter Date: 02/19/20 Encounter Time: 18:03 I spoke with the patient's son over the phone, and discussed Remdesivir. We discussed that it is for EUA, and the risks, and possible benefits. He consents to it's use.
[2020-02-19 18:29] LABS: Troponin I 0.198 ng/mL (< 0.028)
[2020-02-19] MEDS ORDERED: hydrALAZINE 20 MG/ML VIAL SLOW IVP PRN (20:01)
[2020-02-19] MEDS ORDERED: Acetaminophen 325 MG TAB PO PRN (20:01)
[2020-02-19] MEDS ORDERED: Ondansetron PF 4 MG/2 ML Vial IVP PRN (20:01)
[2020-02-19] MEDS ORDERED: Benzonatate 100 MG CAP PO PRN (20:01)
[2020-02-19 20:42] LABS: Bilirubin Negative (Negative); Blood, Urine Negative (Negative); Glucose, Urine (Dipstick) Negative (Negative); Ketone, Urine Negative (Negative); Leukocyte Negative (Negative); Nitrite Negative (Negative); Protein, Urine (Dipstick) Trace mg/dL (Neg-Trace); Specific Gravity, Urine 1.025 (1.005-1.030); Urobilinogen 0.2 mg/dL (Less than 2)
[2020-02-19 20:45] LABS: Clarity Clear (Clear)
[2020-02-19 21:00] LABS: Troponin I 0.171 ng/mL (< 0.028)
--- NOTE | 2020-02-19 22:02 | HP ---
PRIMARY CARE PHYSICIAN: Dr. Pascual. CHIEF COMPLAINT: Altered mental status and fever. HISTORY OF PRESENT ILLNESS: Please note that the history of present illness is very limited as the patient is oriented to person primarily. The details were obtained from discussion with the emergency room nurse and the nurse at the nursing facility. Mr. Marquis is an 79-year-old gentleman, who has a history of congestive heart failure and a pacemaker. He normally is able to walk with a walker and is oriented apparently to person and place. They noticed that he had a temperature up to 103 and he appeared to be less oriented than usual and a bit more lethargic. He also appeared to be tachypneic, and as a result, they brought him to the ER for evaluation. In the ER, he had a rapid COVID screen, which was positive, and he is being admitted for further treatment. He was also noted to be hypoxic and his oxygen saturations improved once he was placed on a nasal cannula. According to the nursing facility, it appears as if his symptoms have been for about the last 2 days. REVIEW OF SYSTEMS: All systems were reviewed and are negative except for that mentioned in the history of present illness. PAST MEDICAL HISTORY: Significant for cerebrovascular accident, hyperlipidemia, hypertension, osteoporosis, and prostate cancer. ALLERGIES: TO ASPIRIN, CODEINE, AND ERYTHROMYCIN. PAST SURGICAL HISTORY: He has had coronary artery bypass grafting x4 and aortic valve replacement and prostatectomy. SOCIAL HISTORY: Essentially unobtainable due to the patient's condition, but from review of the records, it appears as he does not use alcohol or drug use, no smoking history, and he resides in a nursing facility. FAMILY HISTORY: Unknown. CURRENT MEDICATIONS: These will need to be reconciled. PHYSICAL EXAMINATION: GENERAL: He is alert and oriented to person only. He is well developed and well nourished. VITAL SIGNS: Blood pressure was 136/72, heart rate 87, respiratory rate of 24. Temperature recorded in the ER is 103.2. He was 88% saturation on room air. HEENT: His pupils are equal, round, and reactive. Extraocular muscles are intact. Sclerae anicteric. NECK: There is no adenopathy, no bruits. LUNGS: He has some rales in both bases. CARDIOVASCULAR: Heart rate is regular. He does have a grade 3/6 murmur, which appears to be a systolic murmur. ABDOMEN: Soft, nontender, nondistended. Positive for bowel sounds. No rebound. No guarding. EXTREMITIES: There is no edema. He has palpable dorsalis pedis pulses bilaterally. There are no significant lesions. NEUROLOGIC: He is confused, oriented to person, but he is moving all extremities. LAB WORK: White blood cell count is 8.5, hemoglobin 8.6, hematocrit is 26.4, platelet count is 204. Sodium 144, potassium 3.9, chloride is 107, CO2 is 24, BUN of 16, creatinine 1.06, glucose is 112. COVID screen was positive. On his chest x-ray, he has cardiomegaly, bilateral patchy infiltrates, and some obscuring of the left carson diaphragm, possibly a left pleural effusion, and we can see a defibrillator/pacer, that is by my reading. ASSESSMENT AND PLAN: 1. This is an 79-year-old gentleman, who presents with fever and shortness of breath. He is also COVID positive. He will be admitted to telemetry with acute respiratory failure secondary to COVID pneumonia. Start him on IV Decadron. He is within the therapeutic window for Remdesivir and his creatinine is normal. Unfortunately, I am not able to consent him for this for the emergency use authorization. We still have a few more days in order to get this started. We will try to locate family in order to get consent for this therapy. He will be placed on DVT and GI prophylaxis. 2. Hypertension. We will need to reconcile and restart his home medications as well as p.r.n. medications. Job ID: [id number]
[2020-02-19] MEDS ORDERED: Levofloxacin 500 mg/D5W 100 ml Premix Bag ONE (22:13)
[2020-02-19] MEDS ORDERED: Famotidine/PF 20 mg/2ml Vial ONE (22:13)
[2020-02-19] MEDS: Famotidine/PF 20 mg/2ml Vial SLOW IVP SCH (22:29)
[2020-02-20 07:00] LABS: #Lymphocytes 0.5 thou/uL (1.20-3.40); #Monocytes 0.3 thou/uL (0.11-0.59); #Neutrophils 9.8 thou/uL (1.40-6.50); %Eosinophils 0.1 % (0.0-10.0); %Lymphocytes 4.8 % (21.0-51.0); %Monocytes 2.5 % (0.0-10.0); %Neutrophils 92.6 % (42.0-75.0); Mean Corpuscular HGB CONC 31.8 g/dL (32.0-36.0); Mean Corpuscular Hemoglobin 32.9 pg (27.0-31.0); Mean Platelet Volume 7.3 fL (7.4-10.4); Platelet Count 200 thou/uL (130-400); RBC Distribution Width 15.7 % (11.5-14.5); Red Blood Cell (RBC) Count 2.74 mill/uL (4.70-6.10); White Blood Cell (WBC) Count 10.6 thou/uL (4.8-10.8)
[2020-02-20 07:17] LABS: ALT (SGPT) 17 U/L (8-55); AST (SGOT) 33 U/L (5-34); Albumin 3.2 g/dL (3.4-4.8); Alkaline Phosphatase 70 U/L (40-110); Anion Gap 16 mmol/L (10-20); BUN (Urea Nitrogen) 17 mg/dL (8.4-25.7); Bilirubin, Direct 0.3 mg/dL (0.1-0.3); Bilirubin, Total 0.6 mg/dL (0.2-1.2); CRP (Inflammatory) 30.67 mg/dL (= or < 0.5); Calc. Creatinine Clearance 0 mL/min (70-130); Calcium 8.3 mg/dL (7.8-10.44); Carbon Dioxide 25 mmol/L (23-31); Chloride 109 mmol/L (98-107); Glucose 95 mg/dL (83-110); Potassium 3.7 mmol/L (3.5-5.1); Sodium 146 mmol/L (136-145)
[2020-02-20] MEDS ORDERED: Dexamethasone 4 mg/ml Vial ONE (08:56)
[2020-02-20] MEDS ORDERED: Enoxaparin Sodium 40 MG/0.4 ML SYRINGE ONE (08:56)
[2020-02-20] MEDS ORDERED: Famotidine/PF 20 mg/2ml Vial ONE (08:56)
[2020-02-20] MEDS: Famotidine/PF 20 mg/2ml Vial SLOW IVP SCH ×2 (09:00→21:59)
[2020-02-20] MEDS: Enoxaparin Sodium 40 MG/0.4 ML SYRINGE SC SCH (09:00)
[2020-02-20] MEDS: Dexamethasone 4 mg/ml Vial SLOW IVP SCH (09:00)
[2020-02-20] MEDS ORDERED: REMDESIVIR (EUA) 200 MG in Sodium Chloride 0.9% 250 ML 210 ML IV SCH (09:00)
[2020-02-20] MEDS: Sodium Chloride 0.45% 1,000 ML IV SCH ×2 (09:02→21:58)
--- NOTE | 2020-02-20 09:30 | PDOC.HOSPP ---
- Subjective Encounter Date: 02/20/20 Encounter Time: 09:28 Subjective: Mr. Marquis was seen today in follow-up of COVID pneumonia and confusion. He does not have any complaints. He appears comfortable on nasal canula. - Objective Vital Signs & Weight: Vital Signs (12 hours) Temp Pulse Resp BP Pulse Ox 02/20/20 04:45 100.1 F H 95 26 H 129/63 99 Result Diagrams: 02/20/20 06:31 02/20/20 06:31 Hospitalist ROS - Medication Medications: Active Medications Generic Name Dose Route Start Last Admin Trade Name Freq PRN Reason Stop Dose Admin Dexamethasone 6 mg 02/20/20 09:00 02/20/20 09:00 Dexamethasone 4 Mg/Ml Vial SLOW IVP 6 mg DAILY STACEY Administration Enoxaparin Sodium 40 mg 02/20/20 09:00 02/20/20 09:00 Enoxaparin Sodium 40 Mg/0.4 Ml Syringe SC 40 mg 0900 STACEY Administration Famotidine 20 mg 02/19/20 21:00 02/20/20 09:00 Famotidine/Pf 20 Mg/2ml Vial SLOW IVP 20 mg Q12HR STACEY Administration Levofloxacin 500 mg/ Device 100 mls @ 100 mls/hr 02/19/20 21:00 02/19/20 22:32 IVPB 100 mls 2100 STACEY Administration Sodium Chloride 1,000 mls @ 60 mls/hr 02/20/20 08:00 02/20/20 09:02 1/2 Normal Saline IV 1,000 mls .[id number] STACEY Administration - Exam General Appearance: NAD Eye: PERRL, anicteric sclera Heart: no murmur, no gallops, irregular Respiratory: no ronchi, rales Gastrointestinal: soft, non-tender, non-distended, normal bowel sounds, no palpable masses, no hepatomegaly Extremities: no cyanosis, no edema (palpable pulses, no lesions) Hosp A/P (1) Pneumonia due to COVID-19 virus Code(s): U07.1 - COVID-19; J12.82 - Status: Acute (2) Acute respiratory failure with hypoxemia Code(s): J96.01 - ACUTE RESPIRATORY FAILURE WITH HYPOXIA Status: Acute (3) 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, 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 * Status: Chronic (4) Hypertension Code(s): I10 - ESSENTIAL (PRIMARY) HYPERTENSION Status: Chronic Qualifiers: Hypertension type: essential hypertension Qualified Code(s): I10 - Essential (primary) hypertension (5) Hypothyroid Code(s): E03.9 - HYPOTHYROIDISM, UNSPECIFIED Status: Chronic Qualifiers: Hypothyroidism type: unspecified Qualified Code(s): E03.9 - Hypothyroidism, unspecified (6) S/P TAVR (transcatheter aortic valve replacement) Code(s): Z95.2 - PRESENCE OF PROSTHETIC HEART VALVE Status: Chronic (7) Metabolic encephalopathy Code(s): G93.41 - METABOLIC ENCEPHALOPATHY Status: Acute - Plan * Acute respiratory failure due to COVID pneumonia- continue supportive care. He has been started on Remdesivir, and Decadron * Continue to monitor inflammatory markers, and renal and liver functions * HTN- blood pressure is stable * Metabolic encephalopathy- due to COVID- improving * Continue DVT Prophylaxis
[2020-02-20] MEDS: Folic Acid/Vit B Comp W-C PO SCH (13:43)
[2020-02-20] MEDS: Ascorbic Acid 500 mg Chewable Tablet PO SCH (13:43)
[2020-02-20] MEDS: Cholecalciferol (Vitamin D3) 400 UNITS TAB PO SCH (13:43)
[2020-02-20] MEDS: Zinc Sulfate 220 MG CAP PO SCH (13:44)
[2020-02-21 03:46] LABS: ALT (SGPT) 16 U/L (8-55); AST (SGOT) 35 U/L (5-34); Albumin 2.9 g/dL (3.4-4.8); Alkaline Phosphatase 67 U/L (40-110); Anion Gap 19 mmol/L (10-20); BUN (Urea Nitrogen) 19 mg/dL (8.4-25.7); Bilirubin, Direct 0.3 mg/dL (0.1-0.3); Bilirubin, Total 0.5 mg/dL (0.2-1.2); CRP (Inflammatory) 30.62 mg/dL (= or < 0.5); Calc. Creatinine Clearance 0 mL/min (70-130); Calcium 7.6 mg/dL (7.8-10.44); Carbon Dioxide 19 mmol/L (23-31); Chloride 110 mmol/L (98-107); Glucose 104 mg/dL (83-110); Protein, Total 6.2 g/dL (5.8-8.1); Sodium 144 mmol/L (136-145)
[2020-02-21 03:57] VITALS: BMI 21.4
[2020-02-21] MEDS: Enoxaparin Sodium 40 MG/0.4 ML SYRINGE SC SCH (09:55)
[2020-02-21] MEDS: Ascorbic Acid 500 mg Chewable Tablet PO SCH ×2 (09:55→18:20)
[2020-02-21] MEDS: Zinc Sulfate 220 MG CAP PO SCH (09:56)
[2020-02-21] MEDS: Folic Acid/Vit B Comp W-C PO SCH (09:56)
[2020-02-21] MEDS: Cholecalciferol (Vitamin D3) 400 UNITS TAB PO SCH (09:56)
--- NOTE | 2020-02-21 10:30 | PDOC.HOSPP ---
- Subjective Encounter Date: 02/21/20 Encounter Time: 10:28 Subjective: Mr. Marquis was seen today in follow-up of COVID pneumonia and respiratory failure. He does not have any complaints. He is a bit more confused today than yesterday. - Objective Vital Signs & Weight: Vital Signs (12 hours) Temp Pulse Resp BP Pulse Ox 02/21/20 09:08 80 20 146/58 H 95 02/21/20 03:56 99.0 F 90 18 126/63 93 L 02/21/20 00:00 98.9 F 88 24 H 124/66 94 L Weight Weight 157 lb 14.4 oz I&O: 02/20/20 02/21/20 02/22/20 06:59 06:59 06:59 Intake Total 707 Balance 707 Result Diagrams: 02/20/20 06:31 02/21/20 03:17 Hospitalist ROS - Medication Medications: Active Medications Generic Name Dose Route Start Last Admin Trade Name Freq PRN Reason Stop Dose Admin Acetaminophen 650 mg 02/19/20 20:01 02/21/20 05:04 Acetaminophen 325 Mg Tab PO 650 mg Q4H PRN Administration Headache/Fever/Mild Pain (1-3) Ascorbic Acid 1,000 mg 02/20/20 09:00 02/21/20 09:55 Ascorbic Acid 500 Mg Chewable Tablet PO 1,000 mg DAILY STACEY Administration Cholecalciferol 400 units 02/20/20 09:00 02/21/20 09:56 Cholecalciferol (Vitamin D3) 400 Units Tab PO 400 units DAILY STACEY Administration Dexamethasone 6 mg 02/20/20 09:00 02/20/20 09:00 Dexamethasone 4 Mg/Ml Vial SLOW IVP 6 mg DAILY STACEY Administration Enoxaparin Sodium 40 mg 02/20/20 09:00 02/21/20 09:55 Enoxaparin Sodium 40 Mg/0.4 Ml Syringe SC 40 mg 0900 STACEY Administration Famotidine 20 mg 02/19/20 21:00 02/20/20 21:59 Famotidine/Pf 20 Mg/2ml Vial SLOW IVP 20 mg Q12HR STACEY Administration Levofloxacin 500 mg/ Device 100 mls @ 100 mls/hr 02/19/20 21:00 02/20/20 21:58 IVPB 100 mls 2100 STACEY Administration Sodium Chloride 1,000 mls @ 60 mls/hr 02/20/20 08:00 02/20/20 21:58 1/2 Normal Saline IV 1,000 mls .[id number] STACEY Administration Vitamin B Complex/Vit C/Folic Acid 1 tab 02/20/20 09:00 02/21/20 09:56 Folic Acid/Vit B Comp W-C PO 1 tab DAILY STACEY Administration Zinc Sulfate 220 mg 02/20/20 09:00 02/21/20 09:56 Zinc Sulfate 220 Mg Cap PO 220 mg DAILY STACEY Administration - Exam Eye: PERRL, anicteric sclera Heart: RRR, no murmur, no gallops, no rubs, normal peripheral pulses Respiratory: rales (and rhonchi at both bases) Gastrointestinal: soft, non-tender, non-distended, normal bowel sounds, no palpable masses, no hepatomegaly Extremities: no cyanosis, no edema (palpable d.p. pulses bilaterally) Hosp A/P (1) Pneumonia due to COVID-19 virus Code(s): U07.1 - COVID-19; J12.82 - Status: Acute (2) Acute respiratory failure with hypoxemia Code(s): J96.01 - ACUTE RESPIRATORY FAILURE WITH HYPOXIA Status: Acute (3) 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, 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 * Status: Chronic (4) Hypertension Code(s): I10 - ESSENTIAL (PRIMARY) HYPERTENSION Status: Chronic Qualifiers: Hypertension type: essential hypertension Qualified Code(s): I10 - Essential (primary) hypertension (5) Hypothyroid Code(s): E03.9 - HYPOTHYROIDISM, UNSPECIFIED Status: Chronic Qualifiers: Hypothyroidism type: unspecified Qualified Code(s): E03.9 - Hypothyroidism, unspecified (6) S/P TAVR (transcatheter aortic valve replacement) Code(s): Z95.2 - PRESENCE OF PROSTHETIC HEART VALVE Status: Chronic (7) Metabolic encephalopathy Code(s): G93.41 - METABOLIC ENCEPHALOPATHY Status: Acute - Plan * Acute respiratory failure due to COVID pneumonia- continue supportive care. Continue Remdesivir and Decadron * Continue to monitor inflammatory markers, and renal and liver functions * HTN- blood pressure is stable * Metabolic encephalopathy- due to COVID-waxes and wanes * Continue DVT Prophylaxis
[2020-02-21] MEDS: Famotidine/PF 20 mg/2ml Vial SLOW IVP SCH (19:19)
[2020-02-21] MEDS: Sodium Chloride 0.45% 1,000 ML IV SCH (19:19)
[2020-02-21] MEDS: Dexamethasone 4 mg/ml Vial SLOW IVP SCH (19:20)
[2020-02-21] MEDS: REMDESIVIR (EUA) 100 MG in Sodium Chloride 0.9% 250 ML 230 ML IV SCH (19:20)
[2020-02-22] MEDS: Famotidine/PF 20 mg/2ml Vial SLOW IVP SCH ×4 (00:44→21:19)
[2020-02-22 07:23] LABS: ALT (SGPT) 16 U/L (8-55); AST (SGOT) 28 U/L (5-34); Alkaline Phosphatase 70 U/L (40-110); Bilirubin, Direct 0.4 mg/dL (0.1-0.3); Bilirubin, Total 0.5 mg/dL (0.2-1.2); CRP (Inflammatory) 27.05 mg/dL (= or < 0.5); Protein, Total 6.7 g/dL (5.8-8.1)
[2020-02-22] MEDS: Ascorbic Acid 500 mg Chewable Tablet PO SCH (07:43)
[2020-02-22] MEDS: Dexamethasone 4 mg/ml Vial SLOW IVP SCH ×2 (07:44→08:26)
[2020-02-22] MEDS: Zinc Sulfate 220 MG CAP PO SCH (07:44)
[2020-02-22] MEDS: Cholecalciferol (Vitamin D3) 400 UNITS TAB PO SCH (07:44)
[2020-02-22] MEDS: Folic Acid/Vit B Comp W-C PO SCH (07:44)
[2020-02-22] MEDS: Enoxaparin Sodium 40 MG/0.4 ML SYRINGE SC SCH (08:26)
[2020-02-22] MEDS: REMDESIVIR (EUA) 100 MG in Sodium Chloride 0.9% 250 ML 230 ML IV SCH (08:26)
--- NOTE | 2020-02-22 09:29 | PDOC.HOSPP ---
- Subjective Encounter Date: 02/22/20 Encounter Time: 09:28 Subjective: Mr. Marquis was seen today in follow-up of COVID infection. He is awake and alert. He is not requiring supplemental oxygen. - Objective Vital Signs & Weight: Vital Signs (12 hours) Temp Pulse Resp BP BP Pulse Ox 02/22/20 08:00 98.3 F 88 24 H 149/73 H 94 L 02/22/20 04:00 96.8 F L 97 22 H 132/63 95 02/22/20 00:00 97.2 F L 84 20 137/62 92 L Weight Weight 157 lb 14.4 oz I&O: 02/21/20 02/22/20 02/23/20 06:59 06:59 06:59 Intake Total 707 Balance 707 Result Diagrams: 02/20/20 06:31 02/21/20 03:17 Hospitalist ROS - Medication Medications: Active Medications Generic Name Dose Route Start Last Admin Trade Name Freq PRN Reason Stop Dose Admin Acetaminophen 650 mg 02/19/20 20:01 02/21/20 05:04 Acetaminophen 325 Mg Tab PO 650 mg Q4H PRN Administration Headache/Fever/Mild Pain (1-3) Ascorbic Acid 1,000 mg 02/20/20 09:00 02/22/20 07:43 Ascorbic Acid 500 Mg Chewable Tablet PO Not Given DAILY [facility] Cholecalciferol 400 units 02/20/20 09:00 02/22/20 07:44 Cholecalciferol (Vitamin D3) 400 Units Tab PO Not Given DAILY STACEY Dexamethasone 6 mg 02/20/20 09:00 02/22/20 08:26 Dexamethasone 4 Mg/Ml Vial SLOW IVP 6 mg DAILY STACEY Administration Enoxaparin Sodium 40 mg 02/20/20 09:00 02/22/20 08:26 Enoxaparin Sodium 40 Mg/0.4 Ml Syringe SC 40 mg 0900 STACEY Administration Famotidine 20 mg 02/19/20 21:00 02/22/20 08:28 Famotidine/Pf 20 Mg/2ml Vial SLOW IVP 20 mg Q12HR STACEY Administration Levofloxacin 500 mg/ Device 100 mls @ 100 mls/hr 02/19/20 21:00 02/22/20 00:45 IVPB Not Given 2100 STACEY Remdesivir 100 mg/ Sodium 250 mls @ 250 mls/hr 02/21/20 09:00 02/22/20 08:26 Chloride IV 02/24/20 09:59 250 mls DAILY STACEY Administration Sodium Chloride 1,000 mls @ 60 mls/hr 02/20/20 08:00 02/21/20 19:19 1/2 Normal Saline IV Not Given .[id number] STACEY Vitamin B Complex/Vit C/Folic Acid 1 tab 02/20/20 09:00 02/22/20 07:44 Folic Acid/Vit B Comp W-C PO Not Given DAILY STACEY Zinc Sulfate 220 mg 02/20/20 09:00 02/22/20 07:44 Zinc Sulfate 220 Mg Cap PO Not Given DAILY STACEY - Exam Eye: PERRL, anicteric sclera Heart: RRR, no murmur, no gallops, no rubs, normal peripheral pulses Respiratory: rales (at both bases) Gastrointestinal: soft, non-tender, non-distended, normal bowel sounds, no palpable masses, no hepatomegaly Extremities: no cyanosis, no edema Hosp A/P (1) Pneumonia due to COVID-19 virus Code(s): U07.1 - COVID-19; J12.82 - Status: Acute (2) Acute respiratory failure with hypoxemia Code(s): J96.01 - ACUTE RESPIRATORY FAILURE WITH HYPOXIA Status: Acute (3) 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, 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 * Status: Chronic (4) Hypertension Code(s): I10 - ESSENTIAL (PRIMARY) HYPERTENSION Status: Chronic Qualifiers: Hypertension type: essential hypertension Qualified Code(s): I10 - Essential (primary) hypertension (5) Hypothyroid Code(s): E03.9 - HYPOTHYROIDISM, UNSPECIFIED Status: Chronic Qualifiers: Hypothyroidism type: unspecified Qualified Code(s): E03.9 - Hypothyroidism, unspecified (6) S/P TAVR (transcatheter aortic valve replacement) Code(s): Z95.2 - PRESENCE OF PROSTHETIC HEART VALVE Status: Chronic (7) Metabolic encephalopathy Code(s): G93.41 - METABOLIC ENCEPHALOPATHY Status: Acute - Plan * Acute respiratory failure due to COVID pneumonia- continue supportive care. He missed his dose of Remdesivir yesterday, due to lack of IV access. He will get it today. Blood was also not drawn, due to difficulty * Continue to monitor inflammatory markers, and renal and liver functions * Continue IV fluids * HTN- blood pressure is stable * Metabolic encephalopathy- due to COVID-waxes and wanes * Hypothyroidism- clinically euthyroid * Continue DVT Prophylaxis
[2020-02-22] MEDS: Sodium Chloride 0.45% 1,000 ML IV SCH (09:53)
[2020-02-22 17:39] LABS: Anion Gap 14 mmol/L (10-20); BUN (Urea Nitrogen) 25 mg/dL (8.4-25.7); Calc. Creatinine Clearance 67 mL/min (70-130); Calcium 7.9 mg/dL (7.8-10.44); Carbon Dioxide 21 mmol/L (23-31); Chloride 113 mmol/L (98-107); Glucose 141 mg/dL (83-110); Potassium 4.2 mmol/L (3.5-5.1); Sodium 144 mmol/L (136-145)
[2020-02-22 18:03] LABS: Band 20 % (5-11); Hemoglobin 8.4 g/dL (14.0-18.0); Hypochromia SLIGHT = 6-15 cells (100X) (0-5/hpf); Lymphocytes 5 % (21-51); MDiff Complete? YES; Macrocytosis SLIGHT = 6-15 cells (100X) (0-5/hpf); Mean Corpuscular HGB CONC 31.4 g/dL (32.0-36.0); Mean Corpuscular Hemoglobin 32.3 pg (27.0-31.0); Mean Platelet Volume 7.5 fL (7.4-10.4); Monocytes 1 % (0-10); Neutrophil 74 % (42-75); Platelet Count 221 thou/uL (130-400); Platelet Morphology Comment Appears Adequate; Polychromasia SLIGHT = 2-3 cells (100X) (0-2/hpf); RBC Distribution Width 15.8 % (11.5-14.5); Target Cells SLIGHT = 2-5 cells (100X) (0-1/hpf); White Blood Cell (WBC) Count 9.4 thou/uL (4.8-10.8)
[2020-02-23] MEDS: Sodium Chloride 0.45% 1,000 ML IV SCH (01:11)
[2020-02-23 06:01] LABS: ALT (SGPT) 13 U/L (8-55); AST (SGOT) 23 U/L (5-34); Albumin 2.7 g/dL (3.4-4.8); Alkaline Phosphatase 66 U/L (40-110); Bilirubin, Direct 0.3 mg/dL (0.1-0.3); Bilirubin, Total 0.5 mg/dL (0.2-1.2); CRP (Inflammatory) 23.63 mg/dL (= or < 0.5); Protein, Total 6.3 g/dL (5.8-8.1)
[2020-02-23] MEDS: Zinc Sulfate 220 MG CAP PO SCH (09:26)
[2020-02-23] MEDS: Ascorbic Acid 500 mg Chewable Tablet PO SCH (09:26)
[2020-02-23] MEDS: Cholecalciferol (Vitamin D3) 400 UNITS TAB PO SCH (09:26)
[2020-02-23] MEDS: Dexamethasone 4 mg/ml Vial SLOW IVP SCH (09:26)
[2020-02-23] MEDS: Folic Acid/Vit B Comp W-C PO SCH (09:26)
[2020-02-23] MEDS: Enoxaparin Sodium 40 MG/0.4 ML SYRINGE SC SCH (09:27)
[2020-02-23] MEDS: REMDESIVIR (EUA) 100 MG in Sodium Chloride 0.9% 250 ML 230 ML IV SCH (09:27)
[2020-02-23] MEDS: Famotidine/PF 20 mg/2ml Vial SLOW IVP SCH (09:27)
--- NOTE | 2020-02-23 10:37 | PDOC.DS.DS ---
Provider - Provider Date of Admission: 02/19/20 15:52 Date of Discharge: 02/23/20 Admitting Provider: Freddy Gonzalez MD Primary Care Physician: OUT OF TOWN Course - Hospital Course Hospital Course: The patient is an 79-year-old male with past medical history of CVA, hypertension, hyperlipidemia, CHF, and prostate cancer who was brought to the hospital from his half-way residence due to fever, tachypnea, and altered mental status. He was found to be hypoxic in the ER and his Covid test was positive. The patient was started on dexamethasone, supplemental oxygen, antibiotics, enoxaparin, and remdesivir. His condition improved significantly within 3 days of hospitalization. He is now saturating well on room air and stable to be discharged. Resuscitation Status: 02/19/20 17:33 Resuscitation Status Routine Resuscitation Status: FULL: Full Resuscitation - Labs Lab Results: 02/22/20 17:11 02/22/20 17:11 Abnormal Lab Results - Last 48 hrs 02/22/20 03:30: Direct Bilirubin 0.4 H, C-Reactive Protein 27.05 H, Albumin 3.0 L 02/22/20 17:10: D-Dimer 0.76 H 02/22/20 17:11: Chloride 113 H, Carbon Dioxide 21 L 02/22/20 17:11: RBC 2.60 L, Hgb 8.4 L, Hct 26.7 L, MCV 103.0 H, MCH 32.3 H, MCHC 31.4 L, RDW 15.8 H, Band Neuts % (Manual) 20 H, Lymphocytes % (Manual) 5 L 02/23/20 05:30: C-Reactive Protein 23.63 H, Albumin 2.7 L 02/23/20 05:30: D-Dimer 0.77 H Microbiology - Entire Visit 02/19/20 14:03 Venous blood - Right Hand Blood Culture - Preliminary NO GROWTH AT 48 HOURS 02/19/20 13:57 Venous blood - Left Arm Blood Culture - Preliminary NO GROWTH AT 48 HOURS 02/19/20 20:21 Urine voided Urine Culture - Final - Physical Exam Vitals: Vital Signs (12 hours) Temp Pulse Resp BP BP Pulse Ox 02/23/20 09:27 94 L 02/23/20 08:00 98.5 F 84 24 H 130/73 94 L 02/23/20 03:48 97.3 F L 75 18 127/66 94 L 02/22/20 23:34 97.5 F L 78 20 129/74 96 Weight Weight 157 lb 14.4 oz Physical Exam: The patient was seen and examined on the day of discharge. Plan - Discharge Medications Prescriptions: Dexamethasone 6 mg PO DAILY #5 tablet Home Medications: Medication Instructions Recorded Confirmed Type Levothyroxine Sodium [Synthroid] 75 mcg PO DAILY 08/30/16 02/20/20 History Pantoprazole [Protonix] 40 mg PO DAILY 08/30/16 02/20/20 History Cetirizine HCl [Zyrtec] 10 mg PO BID 11/17/16 02/20/20 History Rosuvastatin [Crestor] 10 mg PO HS 04/04/17 02/20/20 History Clopidogrel Bisulfate [Clopidogrel] 75 mg PO DAILY #0 04/10/17 02/20/20 Rx Calcium Phosphate Trib/Vit D3 1 tablet PO HS 07/17/19 02/20/20 History [Calcium + Vitamin D3 Gummies] Losartan [Cozaar] 50 mg PO DAILY 07/17/19 02/20/20 History Multivitamin [Multivitamins] 1 cap PO DAILY 07/17/19 02/20/20 History QUEtiapine Fumarate [SEROquel] 100 mg PO HS 07/17/19 02/20/20 History Bisacodyl [Dulcolax] 1 tab PO PRN PRN 02/20/20 02/20/20 History NaCl/NaHCO3/Hyaluron Sod/Aloe 1 spray EA NARE TID 02/20/20 02/20/20 History [NasoGEL Drip Free [place]] Oxymetazoline HCl [Afrin Nasal 1 spray EA NARE PRN PRN 02/20/20 02/20/20 History [place]] Tamsulosin HCl [Flomax] 1 cap PO HS 02/20/20 02/20/20 History Torsemide [Demadex] 10 mg PO ASDIR 02/20/20 02/20/20 History Dexamethasone 6 mg PO DAILY #5 tablet 02/23/20 Rx Allergies: aspirin Allergy (Verified 08/18/19 08:59) GI bleed; per pt codeine Allergy (Verified 08/18/19 08:59) per pt erythromycin base Allergy (Verified 08/18/19 08:59) per pt morphine Allergy (Verified 02/20/20 23:19) Penicillins Allergy (Verified 02/20/20 23:19) caffeine Adverse Reaction (Mild, Verified 08/18/19 08:59) "I'm allergic because it doesn't let me sleep at night" - Follow up Plan Referrals: [facility] PH[facility]IAN,OUT OF [Primary Care Provider] - Disposition: HOME Quality - Care Measures CORE MEASURES:: N/A
[2020-02-23 16:12] VITALS: BP 136/77; TEMP 97.5
== END 2020-02-23 17:20 | DRG 177 ==
LOC: ERS 13:37 → ERHOLD 15:52 → 2SE 02-20 19:40
PROVIDERS: ADMIT Internal Medicine; ATTEND Internal Medicine
PROC: XW033E5 Introduction of Remdesivir Anti-infective into Peripheral Vein, Percutaneous Approach, New Technology Group 5 (ICD-10-PCS; principal; 2020-02-20)
DX: U07.1 COVID-19 (principal); J12.82 Pneumonia due to coronavirus disease 2019; J96.01 Acute respiratory failure with hypoxia; G93.41 Metabolic encephalopathy; I50.9 Heart failure, unspecified; I11.0 Hypertensive heart disease with heart failure; M81.0 Age-related osteoporosis without current pathological fracture; L89.151 Pressure ulcer of sacral region, stage 1; E78.5 Hyperlipidemia, unspecified; E03.9 Hypothyroidism, unspecified; H54.8 Legal blindness, as defined in USA; Z95.0 Presence of cardiac pacemaker; Z95.1 Presence of aortocoronary bypass graft; Z90.79 Acquired absence of other genital organ(s); Z85.46 Personal history of malignant neoplasm of prostate; Z86.73 Personal history of transient ischemic attack (TIA), and cerebral infarction without residual deficits; Z88.1 Allergy status to other antibiotic agents; Z88.8 Allergy status to other drugs, medicaments and biological substances; Z88.6 Allergy status to analgesic agent; Z88.0 Allergy status to penicillin; Z95.2 Presence of prosthetic heart valve
CPT/HCPCS: 0240U; 36415; 71045; 80048; 80053; 80076; 81003; 82140; 82550; 82553; 82728; 83605; 83690; 83735; 84443; 84484; 85025; 85379; 86140; 87040; 87086; 93005; 96365; 96367; J0696; J1100; J1650; J1956; J3490; J7050; S0028

== ENCOUNTER 2020-03-10 16:17 | Emergency (ER) | payer MEDICARE ==
[2020-03-10 17:05] LABS: #Eosinphils 0.2 thou/uL (0.0-0.7); #Lymphocytes 1.2 thou/uL (1.20-3.40); #Monocytes 0.6 thou/uL (0.11-0.59); #Neutrophils 5.9 thou/uL (1.40-6.50); %Basophils 0.2 % (0.0-1.0); %Eosinophils 2.9 % (0.0-10.0); %Lymphocytes 15.1 % (21.0-51.0); %Monocytes 7.8 % (0.0-10.0); Hemoglobin 8.8 g/dL (14.0-18.0); Mean Corpuscular HGB CONC 31.6 g/dL (32.0-36.0); Mean Corpuscular Hemoglobin 31.2 pg (27.0-31.0); Mean Corpuscular Volume 98.6 fL (78.0-98.0); Mean Platelet Volume 6.7 fL (7.4-10.4); Platelet Count 177 thou/uL (130-400); RBC Distribution Width 16.7 % (11.5-14.5); Red Blood Cell (RBC) Count 2.82 mill/uL (4.70-6.10)
[2020-03-10 17:26] LABS: ALT (SGPT) 11 U/L (8-55); AST (SGOT) 19 U/L (5-34); Albumin 3.1 g/dL (3.4-4.8); Alkaline Phosphatase 90 U/L (40-110); Anion Gap 14 mmol/L (10-20); BUN (Urea Nitrogen) 12 mg/dL (8.4-25.7); Bilirubin, Total 0.4 mg/dL (0.2-1.2); Calc. Creatinine Clearance 0 mL/min (70-130); Calcium 8.1 mg/dL (7.8-10.44); Carbon Dioxide 26 mmol/L (23-31); Chloride 105 mmol/L (98-107); Globulin 3.5 g/dL (2.4-3.5); Glucose 104 mg/dL (83-110); Magnesium 1.9 mg/dL (1.6-2.6); Potassium 3.7 mmol/L (3.5-5.1); Protein, Total 6.6 g/dL (5.8-8.1); Sodium 141 mmol/L (136-145)
--- NOTE | 2020-03-10 17:33 | RAD ---
PORTABLE CHEST: 03/10/20 PROVIDED CLINICAL HISTORY: Hypertension. FINDINGS: Comparison 02/19/20. The cardiac silhouette remains prominently enlarged. Median sternotomy changes, atherosclerosis and l eft subclavian cardiac pacing device re redemonstrated. There are persistent scattered areas of inter stitial and air space disease, with predominantly linear left perihilar air space disease that may re flect subsegmental atelectasis. There is no definite pleural fluid or pneumothorax apparent. IMPRESSION: Cardiomegaly and persistent bilateral interstitial and airspace opacities, that may reflect COVID pne umonia in the appropriate clinical context. POS: SLIME
[2020-03-10 17:50] LABS: Bacteria/HPF None Seen HPF (None Seen); Bilirubin Negative (Negative); Blood, Urine 1+ (Negative); Clarity Clear (Clear); Glucose, Urine (Dipstick) Normal (Negative); Ketone, Urine Negative (Negative); Leukocyte Negative Leu/uL (Negative); Nitrite Negative (Negative); Protein, Urine (Dipstick) Negative (Neg-Trace); RBC/HPF 21-50 HPF (0-3); Specific Gravity, Urine 1.014 (1.002-1.036); Squamous Epithelial None Seen HPF (0-3); Urobilinogen Normal mg/dL (Less than 2); WBC/HPF 0-3 HPF (0-3)
== END 2020-03-10 19:34 | disposition home or self-care (01) ==
LOC: ERS 16:17
DX: U07.1 COVID-19 (principal); J12.82 Pneumonia due to coronavirus disease 2019; E86.0 Dehydration; I10 Essential (primary) hypertension; Z86.73 Personal history of transient ischemic attack (TIA), and cerebral infarction without residual deficits; I50.9 Heart failure, unspecified; E78.5 Hyperlipidemia, unspecified; Z79.899 Other long term (current) drug therapy
CPT/HCPCS: 36415; 71045; 80053; 81003; 81015; 83735; 85025; 87040; 87086; 93005

== ENCOUNTER 2020-03-30 08:10 | Outpatient (CLI) | payer MEDICARE ==
[2020-03-30] MEDS ORDERED: Iopamidol 370 76% 100 ML VIAL ONE (17:51)
== END 2020-03-30 08:11 | disposition home or self-care (01) ==
LOC: CT 08:10
PROVIDERS: ATTEND Internal Medicine Cardiovascular Disease
DX: R06.02 Shortness of breath (principal); I48.91 Unspecified atrial fibrillation; J98.11 Atelectasis; J90 Pleural effusion, not elsewhere classified; M85.80 Other specified disorders of bone density and structure, unspecified site; M47.819 Spondylosis without myelopathy or radiculopathy, site unspecified
CPT/HCPCS: 71275; Q9967

== ENCOUNTER 2021-11-13 22:57 | Inpatient (IN) | payer MEDICARE ==
[~2021-11-13 22:57] MED LIST changes: -Dexamethasone 20 MG/5 ML VIAL ONE; +Iopamidol 370 76% 100 ML VIAL ONE; -Lidocaine 1% PF 5 ML VIAL ONE; -PHENYLEPHRINE-NS 100 MCG/ML 10 ML SYRINGE ONE; -PROPOFOL 200 MG/20 ML VIAL ONE; -Rocuronium Bromide 10 MG/ML (10ML VIAL) ONE; -Succinylcholine 200 MG/10 ml SYRINGE FS ONE; -ePHEDrine 50 MG/ML VIAL ONE
[2021-11-14] LABS: Hemoglobin 9.6 g/dL (14.0-18.0); Mean Corpuscular HGB CONC 33.3 g/dL (32.0-36.0); Mean Platelet Volume 6.7 fL (7.4-10.4); Platelet Count 192 thou/uL (130-400); RBC Distribution Width 13.4 % (11.5-14.5); Red Blood Cell (RBC) Count 2.67 mill/uL (4.70-6.10); White Blood Cell (WBC) Count 8.5 thou/uL (4.8-10.8)
[2021-11-14 00:06] LABS: INR-International Normal Ratio 1.3; PTT 43.2 sec (22.9-36.1); Prothrombin Time 15.9 sec (12.0-14.7)
[2021-11-14 00:11] LABS: ALT (SGPT) 37 U/L (8-55); AST (SGOT) 46 U/L (5-34); Albumin 3.4 g/dL (3.4-4.8); Alkaline Phosphatase 78 U/L (40-110); Anion Gap 14 mmol/L (10-20); BUN (Urea Nitrogen) 22 mg/dL (8.4-25.7); Bilirubin, Total 1.3 mg/dL (0.2-1.2); Calc. Creatinine Clearance 0 mL/min (70-130); Calcium 8.8 mg/dL (7.8-10.44); Carbon Dioxide 25 mmol/L (23-31); Chloride 105 mmol/L (98-107); Estimated GFR 52; Globulin 3.2 g/dL (2.4-3.5); Glucose 113 mg/dL (83-110); Potassium 3.5 mmol/L (3.5-5.1); Protein, Total 6.6 g/dL (5.8-8.1); Sodium 140 mmol/L (136-145)
[2021-11-14 00:19] LABS: #Eosinphils 0.4 thou/uL (0.0-0.7); #Lymphocytes 1.2 thou/uL (1.20-3.40); #Monocytes 0.9 thou/uL (0.11-0.59); %Basophils 0.2 % (0.0-1.0); %Eosinophils 4.2 % (0.0-10.0); %Lymphocytes 14.4 % (21.0-51.0); %Monocytes 10.7 % (0.0-10.0); %Neutrophils 70.6 % (42.0-75.0)
[2021-11-14] MEDS ORDERED: Bisacodyl 5 MG TAB PO PRN (03:31)
[2021-11-14] MEDS ORDERED: Bisacodyl 10 MG SUPP PR PRN (03:31)
[2021-11-14] MEDS ORDERED: Guaifenesin DM 100-10/5 ML UDCUP PO PRN (03:31)
[2021-11-14] MEDS ORDERED: Acetaminophen 325 MG TAB PO PRN (03:31)
[2021-11-14] MEDS ORDERED: Phytonadione 10 MG/ML AMP IM SCH (04:00)
[2021-11-14] MEDS ORDERED: Furosemide 40 MG/4 ML VIAL SLOW IVP SCH (04:00)
[2021-11-14] MEDS ORDERED: Phytonadione Neonatal 1 MG/0.5 ML AMP IM SCH (04:00)
[2021-11-14] MEDS ORDERED: Furosemide 40 MG/4 ML VIAL ONE (04:09)
[2021-11-14] MEDS ORDERED: Phytonadione 10 MG/ML AMP ONE (04:12)
[2021-11-14 05:11] LABS: PT - Undiluted 15.7 sec (12.0-14.7); PTT - Undiluted 44.6 sec (22.9-36.1)
[2021-11-14] MEDS: Levothyroxine Sodium 75 MCG TAB PO SCH (07:05)
[2021-11-14 07:19] LABS: SARS-CoV-2 NAA Rapid Test Not Detected (NotDetected)
[2021-11-14] MEDS ORDERED: Potassium Citrate 10 MEQ TAB PO SCH (08:00)
[2021-11-14 11:49] VITALS: BMI 24.0
[2021-11-14] MEDS: Benzonatate 100 MG CAP PO SCH ×3 (11:51→21:16)
[2021-11-14] MEDS: Ferrous Gluconate 324 MG TAB PO SCH (11:51)
[2021-11-14] MEDS: Digoxin 0.125 MG TAB PO SCH (11:51)
[2021-11-14] MEDS: Losartan 25 MG TAB PO SCH (11:52)
[2021-11-14] MEDS: Torsemide 10 MG TAB PO SCH (11:52)
[2021-11-14] MEDS: Tamsulosin HCl 0.4 MG CAP PO SCH (11:52)
[2021-11-14] MEDS ORDERED: Torsemide 10 MG TAB PO SCH (13:00)
[2021-11-14 15:54] LABS: PTT 1:1 Mix 48.4 sec (22.9-36.1)
[2021-11-14 18:07] LABS: PT 1:1 37C-90 min. Incubation 14.3 sec (12.0-14.7); PTT 1:1 37C/90 MIN Incubation 43.4 sec (22.9-36.1)
[2021-11-14] MEDS: Rosuvastatin 10 MG TAB PO SCH (21:16)
[2021-11-15] MEDS: Levothyroxine Sodium 75 MCG TAB PO SCH (05:17)
[2021-11-15 05:59] LABS: #Eosinphils 0.5 thou/uL (0.0-0.7); #Lymphocytes 1.1 thou/uL (1.20-3.40); #Monocytes 0.7 thou/uL (0.11-0.59); #Neutrophils 4.9 thou/uL (1.40-6.50); %Basophils 0.5 % (0.0-1.0); %Eosinophils 7.3 % (0.0-10.0); %Monocytes 10.1 % (0.0-10.0); %Neutrophils 67.1 % (42.0-75.0); Hemoglobin 9.1 g/dL (14.0-18.0); Mean Corpuscular HGB CONC 33.4 g/dL (32.0-36.0); Mean Corpuscular Hemoglobin 35.7 pg (27.0-31.0); Mean Platelet Volume 6.6 fL (7.4-10.4); Platelet Count 213 thou/uL (130-400); RBC Distribution Width 13.5 % (11.5-14.5); Red Blood Cell (RBC) Count 2.55 mill/uL (4.70-6.10); White Blood Cell (WBC) Count 7.3 thou/uL (4.8-10.8)
[2021-11-15 06:17] LABS: Anion Gap 12 mmol/L (10-20); BUN (Urea Nitrogen) 18 mg/dL (8.4-25.7); Calc. Creatinine Clearance 56 mL/min (70-130); Calcium 8.3 mg/dL (7.8-10.44); Carbon Dioxide 29 mmol/L (23-31); Chloride 104 mmol/L (98-107); Estimated GFR 69; Glucose 94 mg/dL (83-110); Potassium 3.3 mmol/L (3.5-5.1); Sodium 142 mmol/L (136-145)
[2021-11-15 06:22] LABS: INR-International Normal Ratio 1.2; PTT 47.6 sec (22.9-36.1); Prothrombin Time 15.5 sec (12.0-14.7)
[2021-11-15] MEDS ORDERED: Potassium Chloride 20 MEQ TAB PO SCH (08:00)
[2021-11-15 08:13] LABS: ALT (SGPT) 36 U/L (8-55); AST (SGOT) 41 U/L (5-34); Albumin 3.3 g/dL (3.4-4.8); Alkaline Phosphatase 73 U/L (40-110); Bilirubin, Direct 0.5 mg/dL (0.1-0.3); Bilirubin, Total 1.3 mg/dL (0.2-1.2); Protein, Total 6.3 g/dL (5.8-8.1)
[2021-11-15] MEDS ORDERED: Torsemide 20 MG TAB PO SCH (09:00)
[2021-11-15] MEDS ORDERED: Iopamidol-370 76% 500 ML 1 ML ONE (09:20)
[2021-11-15] MEDS: Digoxin 0.125 MG TAB PO SCH (10:20)
[2021-11-15] MEDS: Torsemide 10 MG TAB PO SCH (10:21)
[2021-11-15] MEDS: Losartan 25 MG TAB PO SCH (10:21)
[2021-11-15] MEDS: Tamsulosin HCl 0.4 MG CAP PO SCH (10:21)
[2021-11-15] MEDS: Benzonatate 100 MG CAP PO SCH ×3 (10:21→21:59)
[2021-11-15] MEDS: Potassium Citrate 10 MEQ TAB PO SCH ×3 (10:21→16:29)
[2021-11-15] MEDS: Ferrous Gluconate 324 MG TAB PO SCH (10:25)
[2021-11-15] MEDS ORDERED: Phytonadione 5 MG TAB PO SCH (14:30)
[2021-11-15] MEDS: Rosuvastatin 10 MG TAB PO SCH (21:59)
[2021-11-16] MEDS: Levothyroxine Sodium 75 MCG TAB PO SCH (05:13)
[2021-11-16 06:29] LABS: #Eosinphils 0.5 thou/uL (0.0-0.7); #Lymphocytes 1.1 thou/uL (1.20-3.40); #Monocytes 0.7 thou/uL (0.11-0.59); #Neutrophils 5.5 thou/uL (1.40-6.50); %Basophils 0.1 % (0.0-1.0); %Eosinophils 6.6 % (0.0-10.0); %Lymphocytes 14.2 % (21.0-51.0); %Monocytes 8.9 % (0.0-10.0); %Neutrophils 70.1 % (42.0-75.0); Hemoglobin 8.8 g/dL (14.0-18.0); Mean Corpuscular HGB CONC 31.8 g/dL (32.0-36.0); Mean Corpuscular Hemoglobin 34.8 pg (27.0-31.0); Mean Platelet Volume 6.7 fL (7.4-10.4); Platelet Count 216 thou/uL (130-400); RBC Distribution Width 13.8 % (11.5-14.5); Red Blood Cell (RBC) Count 2.54 mill/uL (4.70-6.10); White Blood Cell (WBC) Count 7.8 thou/uL (4.8-10.8)
[2021-11-16 06:42] LABS: INR-International Normal Ratio 1.2
[2021-11-16 06:43] LABS: PTT 46.5 sec (22.9-36.1)
[2021-11-16 06:46] LABS: ALT (SGPT) 30 U/L (8-55); AST (SGOT) 33 U/L (5-34); Albumin 3.3 g/dL (3.4-4.8); Alkaline Phosphatase 71 U/L (40-110); Anion Gap 11 mmol/L (10-20); BUN (Urea Nitrogen) 17 mg/dL (8.4-25.7); Bilirubin, Total 1.3 mg/dL (0.2-1.2); Calc. Creatinine Clearance 57 mL/min (70-130); Calcium 8.6 mg/dL (7.8-10.44); Carbon Dioxide 29 mmol/L (23-31); Chloride 106 mmol/L (98-107); Estimated GFR 71; Glucose 96 mg/dL (83-110); Magnesium 2.1 mg/dL (1.6-2.6); Potassium 3.6 mmol/L (3.5-5.1); Protein, Total 6.3 g/dL (5.8-8.1); Sodium 142 mmol/L (136-145)
[2021-11-16] MEDS ORDERED: Potassium Chloride 20 MEQ TAB PO SCH (08:15)
[2021-11-16] MEDS ORDERED: pyridOXINE 50 MG (B6) TAB PO SCH (09:00)
[2021-11-16] MEDS: Benzonatate 100 MG CAP PO SCH (10:19)
[2021-11-16] MEDS: Torsemide 10 MG TAB PO SCH (10:19)
[2021-11-16] MEDS: Tamsulosin HCl 0.4 MG CAP PO SCH (10:19)
[2021-11-16] MEDS: Losartan 25 MG TAB PO SCH (10:19)
[2021-11-16] MEDS: Potassium Citrate 10 MEQ TAB PO SCH ×2 (10:20→14:34)
[2021-11-16] MEDS: Ferrous Gluconate 324 MG TAB PO SCH (10:20)
[2021-11-16] MEDS: Digoxin 0.125 MG TAB PO SCH (10:20)
[2021-11-16 12:09] VITALS: BP 119/65; TEMP 98.3
[2021-11-16] MEDS ORDERED: Phytonadione 5 MG TAB PO SCH (12:45)
== END 2021-11-16 15:15 | disposition home or self-care (01) | DRG 556 ==
LOC: ERS 22:57 → T4-A 11-14 02:19 → ERHOLD 11-14 02:33 → T4-A 11-14 11:05 → OBSVTOIN 11-16 12:11
PROVIDERS: ADMIT Internal Medicine; ATTEND Internal Medicine
DX: M79.81 Nontraumatic hematoma of soft tissue (principal); I50.32 Chronic diastolic (congestive) heart failure; N17.9 Acute kidney failure, unspecified; I13.0 Hypertensive heart and chronic kidney disease with heart failure and stage 1 through stage 4 chronic kidney disease, or unspecified chronic kidney disease; D68.2 Hereditary deficiency of other clotting factors; Z20.828 Contact with and (suspected) exposure to other viral communicable diseases; I08.1 Rheumatic disorders of both mitral and tricuspid valves; I49.5 Sick sinus syndrome; E03.9 Hypothyroidism, unspecified; E78.5 Hyperlipidemia, unspecified; E87.6 Hypokalemia; N18.2 Chronic kidney disease, stage 2 (mild); K21.9 Gastro-esophageal reflux disease without esophagitis; R05.8 Other specified cough; R74.8 Abnormal levels of other serum enzymes; H54.8 Legal blindness, as defined in USA; K58.9 Irritable bowel syndrome, unspecified; Z86.73 Personal history of transient ischemic attack (TIA), and cerebral infarction without residual deficits; Z95.0 Presence of cardiac pacemaker; Z85.46 Personal history of malignant neoplasm of prostate; Z90.79 Acquired absence of other genital organ(s); Z88.6 Allergy status to analgesic agent; Z88.3 Allergy status to other anti-infective agents; Z88.5 Allergy status to narcotic agent; Z88.0 Allergy status to penicillin; Z88.8 Allergy status to other drugs, medicaments and biological substances; Z91.018 Allergy to other foods; Z79.899 Other long term (current) drug therapy; Z79.890 Hormone replacement therapy; Z79.02 Long term (current) use of antithrombotics/antiplatelets; Z95.1 Presence of aortocoronary bypass graft; Z95.2 Presence of prosthetic heart valve
CPT/HCPCS: 36415; 71046; 71260; 74177; 80048; 80053; 80076; 83735; 85025; 85610; 85611; 85730; 85732; 94640; 96372; 96374; G0378; J1940; J3430; J7620; Q9967; U0002